=== PATIENT | female | born 1995 | race Caucasian/White ===

== ENCOUNTER 2022-07-18 20:13 | Emergency (ER) | payer OTHER, SELFPAY ==
[2022-07-18 20:20] VITALS: BP 112/78; PULSE 84; RESP 16; RESP 18; TEMP 36.7; O2SAT 98; O2SAT 99; BMI 18.9
--- NOTE | 2022-07-18 20:42 | CRLHL7_ITS ---
For Patients: As a result of the Cures Act, medical imaging exams and procedure reports are released immediately into your electronic medical record. You may view this report before your referring provider. If you have questions, please contact your health care provider. INDICATION: Sinus fullness, sinus pressure and pain TECHNIQUE: CT Sinus without i.v. contrast. Coronal and sagittal reformats were obtained. COMPARISON: None FINDINGS: Sinus: A small retention cyst or polyp is present within the right sphenoid sinus. The sinuses are well-aerated with no significant mucosal thickening or retained secretions seen. The ostiomeatal units are patent. The nasal turbinates are normal. Mild rightward deviation of the nasal septum with a septal spur noted. Orbit: The visualized orbits are grossly unremarkable. Skull base: The visualized brain parenchyma is otherwise normal in appearance. The mastoid air cells are clear. Soft tissue: Unremarkable. IMPRESSION: 1. Unremarkable CT appearance of the paranasal sinuses. Dictated by Lloyd Pérez MD @ 07/18/2022 9:56:25 PM Please note that all CT scans at this facility use dose modulation, iterative reconstruction, and/or weight-based dosing when appropriate to reduce radiation dose to as low as reasonably achievable. Dictated by: Lloyd Pérez MD @ 07/18/2022 21:56:28 (Electronically Signed)
--- NOTE | 2022-07-18 20:43 | ED.GENADULT ---
HPI - General Adult General Chief complaint: Unspecified Complaint, Adult Stated complaint: Eyes are red and puffy, shortness of breath Time Seen by Provider: 07/18/22 20:15 History of Present Illness HPI narrative: This 27-year-old female comes in reporting facial pain, red eyes, and puffy eyes over the past couple days. She does not report any fevers or cough. She states that she has a history of sinusitis. She also reports shortness of breath but does arrive with normal vital signs and is able to speak in complete sentences. Related Data Home Medications Medication Instructions Recorded Confirmed albuterol 90 mcg/actuation aerosol 90 mcg inhalation DAILY 05/24/22 07/18/22 inhaler albuterol sulfate 2.5 mg/3 mL 2.5 mg inhalation Q6H PRN 05/24/22 07/18/22 (0.083 %) solution for nebulization citalopram 10 mg tablet 10 mg PO QDAY 05/24/22 07/18/22 dextroamphetamine-amphetamine 5 mg 5 mg PO QDAY PRN 05/24/22 07/18/22 tablet (Adderall) dextroamphetamine-amphetamine ER 25 mg PO QAM 05/24/22 07/18/22 25 mg 24hr capsule,extend release (Adderall XR) Previous Rx's Medication Instructions Recorded gentamicin 0.3 % eye drops 1 drp ophthalmic (eye) Q4H #5 mL 07/18/22 methylprednisolone 4 mg tablets in See Rx Instructions PO .COMPLEX 07/18/22 a dose pack (Medrol (Spenser)) #21 ea Allergies Allergy/AdvReac Type Severity Reaction Status Date / Time No Known Allergies Allergy Verified 07/18/22 20:23 Review of Systems Status of ROS: Reports: 10 or more systems reviewed and unremarkable except as noted in History and below Narrative: Constitutional: No fevers, no weight gain or loss. Eyes: No vision changes. Erythema with watery discharge. HENT: No congestion, no sore throat, no ear pain. She reports facial pain over the maxillary sinuses. Cardiovascular: No chest pain, no palpitations. Respiratory: No shortness of breath, no wheezes, no cough. Gastrointestinal: No abdominal pain, no vomiting, no diarrhea. Genitourinary: No dysuria, no hematuria. Musculoskeletal: Normal range of motion. Skin: No rashes, no pruritis. Neurological: No dizziness, weakness, sensory change, speech change. Endo/Heme/Allergies: No bruising or bleeding. No polydipsia. Pysch: no suicidality, no anxiety, no insomnia. All other systems reviewed and are negative. [facility] Medical History (Updated 07/18/22 @ 21:32 by Darryl Cee MD) ADHD (attention deficit hyperactivity disorder) ?F90.9 - Attention-deficit hyperactivity disorder, unspecified type (ICD-10) Surgical History Status post repeat low transverse section ?Z98.891 - History of uterine scar from previous surgery (ICD-10) Status post primary low transverse section ?Z98.891 - History of uterine scar from previous surgery (ICD-10) Social History Smoking Status: Never smoker Second hand tobacco smoke exposure: No How often do you have a drink containing alcohol: never How often do you have six or more drinks on one occasion: Never AUDIT-C Alcohol total score: 0 Non-prescribed substance use: denies use Exam Narrative: Exam Narrative: Constitutional: Well-developed, well-nourished, no acute distress. HEENT: Normocephalic, atraumatic. Oropharynx appears normal. Eyes bilaterally are injected with some mild edema of the eyelids. Neck: Normal range of motion. Nontender. Supple. Heart: Regular. No murmurs. Normal rate. Intact distal pulses. Lungs: Clear to auscultation. No chest discomfort. No wheezes, rhonchi, or rales. Abdomen: Normal bowel sounds. Nontender. No rebound tenderness. Genitalia: Deferred. Back: No midline tenderness. Normal range of motion. Extremities: Normal range of motion. No injury. Skin: Intact. No rash. Warm. No erythema or pallor. Neurologic: No altered sensation. No weakness. Alert and oriented. Psychiatric: No suicidality. No anxiety or depression. No insomnia. Nursing notes and vitals signs are reviewed. Const: Vital Signs, click to edit/add: Vital Signs - 24 hr 07/18/22 20:20 07/18/22 20:20 Temperature 98.0 F Pulse Rate [Right Pulse Oximeter] 84 Respiratory Rate 18 Respiratory Rate [ Face] 16 Blood Pressure [Ri ght Upper Arm] 112/78 Pulse Oximetry 99 Oxygen Delivery Me thod Room Air Course Vital Signs Vital signs: Initial Vital Signs Temperature 98.0 F 07/18/22 20:20 Temperature Source Temporal Artery Scan 07/18/22 20:20 Pulse Rate 84 07/18/22 20:20 Respiratory Rate 18 07/18/22 20:20 Blood Pressure 112/78 07/18/22 20:20 Blood Pressure Mean 89 07/18/22 20:20 Blood Pressure Position Sitting 07/18/22 20:20 Pulse Oximetry 99 07/18/22 20:20 Oxygen Delivery Method Room Air 07/18/22 20:20 Vital Signs Temperature 98.0 F 07/18/22 20:20 Pulse Rate 84 07/18/22 20:20 Respiratory Rate 18 07/18/22 20:20 Blood Pressure 112/78 07/18/22 20:20 Pulse Oximetry 99 07/18/22 20:20 Oxygen Delivery Method Room Air 07/18/22 20:20 Temperature 98.0 F 07/18/22 20:20 Pulse Rate 84 07/18/22 20:20 Respiratory Rate 16 07/18/22 20:20 Blood Pressure 112/78 07/18/22 20:20 Pulse Oximetry 99 07/18/22 20:20 Oxygen Delivery Method Room Air 07/18/22 20:20 Medical Decision Making MDM Narrative Medical decision making narrative: This patient is indicating symptoms of sinusitis. CT imaging of the sinuses is obtained and shows no obvious sign of bacterial infection. More likely this is a allergic sinusitis. Radiology report is pending. An antibiotic is not indicated at this time. The patient did receive a prescription for Medrol Dosepak as well as gentamicin ophthalmic solution and Toradol. Discharge Plan Discharge Clinical Impression: Allergic sinusitis, Conjunctivitis Patient Disposition: Home, Self-Care Condition: Stable Additional Instructions: Take medication as needed and indicated. Follow up with MD or return if worsening. Prescriptions: New methylprednisolone [Medrol (Spenser)] 4 mg tablets,dose pack See Rx Instructions .ROUTE .COMPLEX Qty: 21 0RF Rx Instructions: orally per package directions gentamicin 0.3 % drops 1 drp ophthalmic (eye) Q4H Qty: 5 0RF No Action dextroamphetamine-amphetamine [Adderall XR] 25 mg capsule,extended release 24hr 25 mg PO QAM dextroamphetamine-amphetamine [Adderall] 5 mg tablet 5 mg PO QDAY PRN citalopram 10 mg tablet 10 mg PO QDAY albuterol sulfate 2.5 mg /3 mL (0.083 %) solution for nebulization 2.5 mg inhalation Q6H PRN albuterol 90 mcg/actuation aerosol 90 mcg inhalation DAILY Follow Up/Referrals: Mame Barroso MD [Primary Care Provider] - Stand Alone Forms: [employer] Info Instructions
[2022-07-18 21:30] VITALS: BP 118/80; PULSE 79; RESP 18; TEMP 36.7; O2SAT 99
== END 2022-07-18 21:39 | disposition home or self-care (01) ==
PROVIDERS: Emergency Provider Emergency Medicine Emergency Medical Services; PCP Family Medicine
DX: J30.9 Allergic rhinitis, unspecified (principal); H10.9 Unspecified conjunctivitis
CPT/HCPCS: 70486; 99284

== ENCOUNTER 2022-10-25 12:09 | Emergency (ER) | payer OTHER, SELFPAY ==
[2022-10-25 12:18] VITALS: BP 130/77; PULSE 69; RESP 18; TEMP 36.6; O2SAT 100; BMI 19.5
--- NOTE | 2022-10-25 12:22 | CRLHL7_ITS ---
For Patients: As a result of the Cures Act, medical imaging exams and procedure reports are released immediately into your electronic medical record. You may view this report before your referring provider. If you have questions, please contact your health care provider. Indication: Shortness of breath, chest tightness, cough Technique: Two views of the chest Comparison: Chest radiograph on January 01, 2018 and prior Findings: Lungs are clear. No pleural effusion or pneumothorax. Normal heart size. Normal mediastinal contour. No acute fracture. Visualized upper abdomen is unremarkable. Impression: No acute cardiopulmonary process. Dictated by Carla Olmedo MD @ 10/25/2022 12:59:56 PM (Electronically Signed)
--- NOTE | 2022-10-25 13:08 | ED_ITS ---
HPI - General Adult General Chief complaint: Cough Stated complaint: chest tightness,L side pain and coughing Time Seen by Provider: 10/25/22 12:11 History of Present Illness HPI narrative: This 27-year-old female comes in reporting cough that is productive over the past 4 days. She does not report any fevers, sore throat, ear pain, or shortness of breath. Related Data Home Medications Medication Instructions Recorded Confirmed albuterol 90 mcg/actuation aerosol 90 mcg inhalation DAILY 05/24/22 07/24/22 inhaler albuterol sulfate 2.5 mg/3 mL 2.5 mg inhalation Q6H PRN 05/24/22 07/24/22 (0.083 %) solution for nebulization citalopram 10 mg tablet 10 mg PO QDAY 05/24/22 07/24/22 dextroamphetamine-amphetamine 5 mg 5 mg PO QDAY PRN 05/24/22 07/24/22 tablet (Adderall) dextroamphetamine-amphetamine ER 25 mg PO QAM 05/24/22 07/24/22 25 mg 24hr capsule,extend release (Adderall XR) Previous Rx's Medication Instructions Recorded gentamicin 0.3 % eye drops 1 drp ophthalmic (eye) Q4H #5 mL 07/18/22 methylprednisolone 4 mg tablets in See Rx Instructions PO .COMPLEX 07/18/22 a dose pack (Medrol (Spenser)) #21 ea carvedilol 3.125 mg tablet (Coreg) 3.125 mg PO BID PRN Tachycardia 07/24/22 #30 tabs ketorolac 0.5 % eye drops (Acular) 1 drp ophthalmic (eye) QID #10 mL 07/24/22 acetaminophen 300 mg-codeine 30 mg 1 tab PO Q6H PRN pain #15 tabs 10/25/22 tablet methylprednisolone 4 mg tablets in See Rx Instructions PO .COMPLEX 10/25/22 a dose pack (Medrol (Spenser)) #21 ea Allergies Allergy/AdvReac Type Severity Reaction Status Date / Time No Known Allergies Allergy Verified 10/25/22 12:20 Review of Systems Status of ROS: Reports: 10 or more systems reviewed and unremarkable except as noted in History and below Narrative: Constitutional: No fevers, no weight gain or loss. Eyes: No discharge. No vision changes. HENT: No congestion, no sore throat, no ear pain. Cardiovascular: No chest pain, no palpitations. Respiratory: No shortness of breath, no wheezes. Productive cough. Gastrointestinal: No abdominal pain, no vomiting, no diarrhea. Genitourinary: No dysuria, no hematuria. Musculoskeletal: Normal range of motion. Skin: No rashes, no pruritis. Neurological: No dizziness, weakness, sensory change, speech change. Endo/Heme/Allergies: No bruising or bleeding. No polydipsia. Pysch: no suicidality, no anxiety, no insomnia. All other systems reviewed and are negative. [facility] Medical History (Updated 10/25/22 @ 14:15 by Darryl Cee MD) ADHD (attention deficit hyperactivity disorder) ?F90.9 - Attention-deficit hyperactivity disorder, unspecified type (ICD-10) Surgical History (System 07/24/22 @ 17:43 by Renetta Galarza) Status post repeat low transverse section ?Z98.891 - History of uterine scar from previous surgery (ICD-10) Status post primary low transverse section ?Z98.891 - History of uterine scar from previous surgery (ICD-10) Social History (System 07/24/22 @ 17:43 by Renetta Galarza) Smoking Status: Never smoker Do you use any of these nicotine containing products: None Second hand tobacco smoke exposure: No How often do you have a drink containing alcohol: never How often do you have six or more drinks on one occasion: Never AUDIT-C Alcohol total score: 0 Non-prescribed substance use: denies use service: No Exam Narrative: Exam Narrative: Constitutional: Well-developed, well-nourished, no acute distress. HEENT: Normocephalic, atraumatic. Neck: Normal range of motion. Nontender. Supple. Heart: Regular. No murmurs. Normal rate. Intact distal pulses. Lungs: Clear to auscultation. No chest discomfort. No wheezes, rhonchi, or rale s. Abdomen: Normal bowel sounds. Nontender. No rebound tenderness. Genitalia: Deferred. Back: No midline tenderness. Normal range of motion. Extremities: Normal range of motion. No injury. Skin: Intact. No rash. Warm. No erythema or pallor. Neurologic: No altered sensation. No weakness. Alert and oriented. Psychiatric: No suicidality. No anxiety or depression. No insomnia. Nursing notes and vitals signs are reviewed. Const: Vital Signs, click to edit/add: Vital Signs - 24 hr 10/25/22 12:18 Temperature 97.9 F Pulse Rate [Right Pulse Oximeter] 69 Respiratory Rate 18 Blood Pressure [Ri ght Upper Arm] 130/77 Pulse Oximetry 100 Oxygen Delivery Me thod Room Air Course Vital Signs Vital signs: Initial Vital Signs Temperature 97.9 F 10/25/22 12:18 Temperature Source Temporal Artery Scan 10/25/22 12:18 Pulse Rate 69 10/25/22 12:18 Pulse Rhythm Regular 10/25/22 12:18 Pulse Strength 3+ Normal 10/25/22 12:18 Respiratory Rate 18 10/25/22 12:18 Blood Pressure 130/77 10/25/22 12:18 Blood Pressure Mean 94 10/25/22 12:18 Pulse Oximetry 100 10/25/22 12:18 Oxygen Delivery Method Room Air 10/25/22 12:18 Vital Signs Temperature 97.9 F 10/25/22 12:18 Pulse Rate 69 10/25/22 12:18 Respiratory Rate 18 10/25/22 12:18 Blood Pressure 130/77 10/25/22 12:18 Pulse Oximetry 100 10/25/22 12:18 Oxygen Delivery Method Room Air 10/25/22 12:18 Temperature 97.9 F 10/25/22 12:18 Pulse Rate 69 10/25/22 12:18 Respiratory Rate 18 10/25/22 12:18 Blood Pressure 130/77 10/25/22 12:18 Pulse Oximetry 100 10/25/22 12:18 Oxygen Delivery Method Room Air 10/25/22 12:18 Medical Decision Making MDM Narrative Medical decision making narrative: This patient comes in with 4 days of productive cough. She also has some nasal congestion and chest congestion. Chest x-ray and nasal swab returned negative for pneumonia or other viral causes for her symptoms. Most likely this is some other viral upper respiratory infection. The patient is okay to return home and did received prescriptions for Tylenol 3 and Medrol Dosepak. I encouraged using [id number] medicines also as needed and directed. Lab Data Labs: Lab Results 10/25/22 Range/Units 13:20 SARS-CoV-2 (PCR) Negative SARS-CoV-2 (Negative) Influenza Type A (PCR) Negative PCR FLU A (Negative) Influenza Type B (PCR) Negative PCR FLU B (Negative) RSV (PCR) Negative PCR RSV (Negative) Imaging Data Chest x-ray: Radiologist's impression: No acute cardiopulmonary process. Discharge Plan Discharge Clinical Impression: Acute upper respiratory infection Patient Disposition: Home, Self-Care Condition: Unchanged Additional Instructions: Take medication as needed and directed. Follow up with MD or return if worsening symptoms occur. Prescriptions: New acetaminophen-codeine 300-30 mg tablet 1 tab PO Q6H PRN (Reason: pain) Qty: 15 0RF methylprednisolone [Medrol (Spenser)] 4 mg tablets,dose pack See Rx Instructions .ROUTE .COMPLEX Qty: 21 0RF Rx Instructions: orally per package directions No Action dextroamphetamine-amphetamine [Adderall XR] 25 mg capsule,extended release 24hr 25 mg PO QAM dextroamphetamine-amphetamine [Adderall] 5 mg tablet 5 mg PO QDAY PRN citalopram 10 mg tablet 10 mg PO QDAY albuterol sulfate 2.5 mg /3 mL (0.083 %) solution for nebulization 2.5 mg inhalation Q6H PRN albuterol 90 mcg/actuation aerosol 90 mcg inhalation DAILY carvedilol [Coreg] 3.125 mg tablet 3.125 mg PO BID PRN (Reason: Tachycardia) Qty: 30 2RF Rx Instructions: must administer with a meal/food ketorolac [Acular] 0.5 % drops 1 drp ophthalmic (eye) QID Qty: 10 0RF methylprednisolone [Medrol (Spenser)] 4 mg tablets,dose pack See Rx Instructions .ROUTE .COMPLEX Qty: 21 0RF Rx Instructions: orally per package directions gentamicin 0.3 % drops 1 drp ophthalmic (eye) Q4H Qty: 5 0RF Follow Up/Referrals: Mame Barroso MD [Primary Care Provider] - Stand Alone Forms: [employer] Info Instructions
[2022-10-25 14:06] LABS: PCR FLU A Negative PCR FLU A (Negative); PCR FLU B Negative PCR FLU B (Negative); PCR RSV Negative PCR RSV (Negative)
[2022-10-25 14:08] LABS: SARS PCR* Negative SARS-CoV-2 (Negative)
== END 2022-10-25 14:26 | disposition home or self-care (01) ==
PROVIDERS: Emergency Provider Emergency Medicine Emergency Medical Services; PCP Family Medicine
DX: J06.9 Acute upper respiratory infection, unspecified (principal)
CPT/HCPCS: 71046; 87631; 99283; 99284

== ENCOUNTER 2023-01-09 21:35 | Emergency (ER) | payer OTHER, SELFPAY ==
[2023-01-09 21:42] VITALS: BP 121/78; PULSE 70; RESP 16; TEMP 36.8; O2SAT 98
--- NOTE | 2023-01-09 21:47 | ED.GENADULT ---
HPI - General Adult General Chief complaint: Vaginal Bleeding Stated complaint: Active miscarriage - heavy bleeding Time Seen by Provider: 01/09/23 21:47 History of Present Illness HPI narrative: heavy bleeding started this evening-8pm, US yesterday @ [facility], saw fetus with no heartbeat. Was told to come to ER if heavy bleeding. 6 weeks . pt reports cramping, 07/22 27-year-old woman presenting to the emergency department with concern of heavy vaginal bleeding. This began about an hour and a half ago. Thought to be 6 weeks . Had an ultrasound yesterday in clinic which apparently visualized demise. She is G 3p2 and only complications of labor and delivery noted were preeclampsia with both prior pregnancies. Had been having some pink discharge whole spotting earlier in the week prompting this visit to the clinic for ultrasound. Bleeding again an hour and half ago was noted when she went to use the bathroom. Later describing some bloody clot/tissue on paper. She would describe it as menstrual level bleeding at this point. She is not feeling lightheaded. Says her legs feel little bit like Jell-O though. She is not short of breath. Related Data Home Medications Medication Instructions Recorded Confirmed albuterol 90 mcg/actuation aerosol 90 mcg inhalation DAILY 05/24/22 07/24/22 inhaler albuterol sulfate 2.5 mg/3 mL 2.5 mg inhalation Q6H PRN 05/24/22 07/24/22 (0.083 %) solution for nebulization citalopram 10 mg tablet 10 mg PO QDAY 05/24/22 07/24/22 dextroamphetamine-amphetamine 5 mg 5 mg PO QDAY PRN 05/24/22 07/24/22 tablet (Adderall) dextroamphetamine-amphetamine ER 25 mg PO QAM 05/24/22 07/24/22 25 mg 24hr capsule,extend release (Adderall XR) Previous Rx's Medication Instructions Recorded gentamicin 0.3 % eye drops 1 drp ophthalmic (eye) Q4H #5 mL 07/18/22 methylprednisolone 4 mg tablets in See Rx Instructions PO .COMPLEX 07/18/22 a dose pack (Medrol (Spenser)) #21 ea carvedilol 3.125 mg tablet (Coreg) 3.125 mg PO BID PRN Tachycardia 05/12/23 #30 tabs ketorolac 0.5 % eye drops (Acular) 1 drp ophthalmic (eye) QID #10 mL 07/24/22 acetaminophen 300 mg-codeine 30 mg 1 tab PO Q6H PRN pain #15 tabs 10/25/22 tablet methylprednisolone 4 mg tablets in See Rx Instructions PO .COMPLEX 10/25/22 a dose pack (Medrol (Spenser)) #21 ea Allergies Allergy/AdvReac Type Severity Reaction Status Date / Time No Known Allergies Allergy Verified 10/25/22 12:20 Review of Systems Status of ROS: Reports: 6 or more systems reviewed and unremarkable except as noted in History and below [facility] Medical History ADHD (attention deficit hyperactivity disorder) ?F90.9 - Attention-deficit hyperactivity disorder, unspecified type (ICD-10) Surgical History Status post repeat low transverse section ?Z98.891 - History of uterine scar from previous surgery (ICD-10) Status post primary low transverse section ?Z98.891 - History of uterine scar from previous surgery (ICD-10) Social History Smoking Status: Never smoker Do you use any of these nicotine containing products: None Second hand tobacco smoke exposure: No How often do you have a drink containing alcohol: never How often do you have six or more drinks on one occasion: Never AUDIT-C Alcohol total score: 0 Non-prescribed substance use: denies use service: No Exam Narrative: Exam Narrative: Pleasant. NAD maybe a little anxious. Tattoo at the right shoulder. Breathing easily. Lungs appear to be clear. Heart in regular rate and rhythm. Abdomen is soft a little uncomfortable to palpation in the suprapubic area. Skin is otherwise warm and dry well-perfused. No lower extremity. exam was not done Const: Vital Signs, click to edit/add: Vital Signs - 24 hr 01/09/23 21:42 Temperature 98.3 F Pulse Rate [Left P ulse Oximeter] 70 Respiratory Rate 16 Blood Pressure [Ri ght Upper Arm] 121/78 Pulse Oximetry 98 Oxygen Delivery Me thod Room Air Documenting provider has reviewed patient's vital signs: yes Course Vital Signs Vital signs: Initial Vital Signs Temperature 98.3 F 01/09/23 21:42 Temperature Source Temporal Artery Scan 01/09/23 21:42 Pulse Rate 70 01/09/23 21:42 Pulse Rhythm Regular 01/09/23 21:42 Respiratory Rate 16 01/09/23 21:42 Blood Pressure 121/78 01/09/23 21:42 Blood Pressure Mean 92 01/09/23 21:42 Blood Pressure Position Sitting 01/09/23 21:42 Pulse Oximetry 98 01/09/23 21:42 Oxygen Delivery Method Room Air 01/09/23 21:42 Vital Signs Temperature 98.3 F 01/09/23 21:42 Pulse Rate 70 01/09/23 21:42 Respiratory Rate 16 01/09/23 21:42 Blood Pressure 121/78 01/09/23 21:42 Pulse Oximetry 98 01/09/23 21:42 Oxygen Delivery Method Room Air 01/09/23 21:42 Temperature 98.3 F 01/09/23 21:42 Pulse Rate 70 01/09/23 21:42 Respiratory Rate 16 01/09/23 21:42 Blood Pressure 121/78 01/09/23 21:42 Pulse Oximetry 98 01/09/23 21:42 Oxygen Delivery Method Room Air 01/09/23 21:42 Medical Decision Making MDM Narrative Medical decision making narrative: She would just like to know whether otherwise okay. Will check hemoglobin for baseline. I doubt that is significantly anemic at this time. Will check blood type also for consideration of RhoGAM. Is feeling little bit nauseated give her Zofran. Serum hCG quantitative. At this time I am not sure we need to repeat the ultrasound today. Discussing further I think it would be a good idea yet to double check with an ultrasound. Discussed findings with general teller. IMPRESSION: 1. Single viable intrauterine with crown-rump length of 0.2 cm corresponding to a gestational age of 5 weeks, 5 days. heart rate of 100 beats per minute is slightly bradycardic, close clinical follow-up is recommended. 2. Small subchorionic hemorrhage in the left uterine body measuring 1.9 x 1.2 x 1.1 cm. We may have explanation here now for this bleeding. Recommending close follow-up. Bleeding scant. Blood type positive so no RhoGAM See patient discharge plan Lab Data Lab results reviewed: Yes I reviewed the patient's lab results Labs: Lab Results 01/09/23 01/09/23 Range/Units 22:07 22:11 Hgb 13.5 (12.0-16.0) gm/dL HCG, Quant 40757.00 mIU/mL Blood Type B Positive Antibody Screen NEGATIVE Discharge Plan Discharge Clinical Impression: Subchorionic hemorrhage, Bleeding in early Patient Disposition: Home, Self-Care Condition: Stable Additional Instructions: I will call you if Radiology finds anything more significant. Your beta hCG quantitative was 31,000 today. Hemoglobin was 13.5. You are blood type B positive. Consider follow-up around the middle of next week to recheck this beta hCG. Return for marked increase in persistent abdominal pain, bleeding such that you are soaking 1 heavy pad an hour for 2 consecutive hours, increasingly short of breath or lightheaded. Prescriptions: No Action dextroamphetamine-amphetamine [Adderall XR] 25 mg capsule,extended release 24hr 25 mg PO QAM dextroamphetamine-amphetamine [Adderall] 5 mg tablet 5 mg PO QDAY PRN citalopram 10 mg tablet 10 mg PO QDAY albuterol sulfate 2.5 mg /3 mL (0.083 %) solution for nebulization 2.5 mg inhalation Q6H PRN albuterol 90 mcg/actuation aerosol 90 mcg inhalation DAILY carvedilol [Coreg] 3.125 mg tablet 3.125 mg PO BID PRN (Reason: Tachycardia) Qty: 30 2RF Rx Instructions: must administer with a meal/food ketorolac [Acular] 0.5 % drops 1 drp ophthalmic (eye) QID Qty: 10 0RF acetaminophen-codeine 300-30 mg tablet 1 tab PO Q6H PRN (Reason: pain) Qty: 15 0RF methylprednisolone [Medrol (Spenser)] 4 mg tablets,dose pack See Rx Instructions .ROUTE .COMPLEX Qty: 21 0RF Rx Instructions: orally per package directions methylprednisolone [Medrol (Spenser)] 4 mg tablets,dose pack See Rx Instructions .ROUTE .COMPLEX Qty: 21 0RF Rx Instructions: orally per package directions gentamicin 0.3 % drops 1 drp ophthalmic (eye) Q4H Qty: 5 0RF Follow Up/Referrals: Mame Barroso MD [Primary Care Provider] - Stand Alone Forms: [facility] Info Instructions
[2023-01-09 22:16] LABS: Hemoglobin* 13.5 gm/dL (12.0-16.0)
--- NOTE | 2023-01-10 | CRLHL7_ITS ---
For Patients: As a result of the Century Cures Act, medical imaging exams and procedure reports are released immediately into your electronic medical record. You may view this report before your referring provider. If you have questions, please contact your health care provider. INDICATION: Bleeding in 1st trimester. TECHNIQUE: Ultrasound OB pelvis transabdominal and transvaginal. Real-time peterson-scale imaging of the pelvis was performed. COMPARISON: None FINDINGS: Sonographic imaging demonstrates a single living intrauterine gestation. The embryo demonstrates a regular cardiac rate measuring 100 beats per minute. The embryo`s crown rump length measurement of 0.2 cm corresponds to a gestational age of 5 weeks, 5 days with a sonographic due date of 09/07/2023. There is a normal appearing yolk sac. There are no gross abnormalities noted within the embryo at this early state of development. The placenta has not yet developed. Small subchorionic hemorrhage in the left uterine body measuring 1.9 x 1.2 x 1.1 cm. Unremarkable appearance of the bilateral ovaries. IMPRESSION: 1. Single viable intrauterine with crown-rump length of 0.2 cm corresponding to a gestational age of 5 weeks, 5 days. heart rate of 100 beats per minute is slightly bradycardic, close clinical follow-up is recommended. 2. Small subchorionic hemorrhage in the left uterine body measuring 1.9 x 1.2 x 1.1 cm. Dictated by Alex Martinez MD @ 01/10/2023 1:02:10 AM (Electronically Signed)
== END 2023-01-10 01:02 | disposition home or self-care (01) ==
PROVIDERS: Emergency Provider Family Medicine; PCP Family Medicine
DX: O46.91 Antepartum hemorrhage, unspecified, first trimester (principal); Z3A.01 Less than 8 weeks gestation of pregnancy
CPT/HCPCS: 36415; 76817; 84702; 85018; 86850; 86900; 86901; 99283; 99284

== ENCOUNTER 2024-01-12 13:14 | Emergency (ER) | payer OTHER, SELFPAY ==
[2024-01-12 13:24] VITALS: BP 133/79; PULSE 105; RESP 16; TEMP 36.9; O2SAT 100; BMI 18.9
--- NOTE | 2024-01-12 13:43 | CRLHL7_ITS ---
For Patients: As a result of the Century Cures Act, medical imaging exams and procedure reports are released immediately into your electronic medical record. You may view this report before your referring provider. If you have questions, please contact your health care provider. INDICATION: Lip abrasion TECHNIQUE: CT maxillofacial without contrast. COMPARISON: None. FINDINGS: FACIAL BONES: No fracture, bony sclerosis or destruction. Fractures, if present, would best be characterized by the following pattern or classification: None. HARDWARE: No hardware loosening or disruption. ORBITS: Bony orbit is normal. Intra-orbital contents are normal. FACIAL TISSUES: Mild soft tissue swelling of the lips. Subcutaneous air is not seen. SINUSES: Mucous retention cyst in the right sphenoid sinus and left maxillary sinus. Mild right maxillary sinus mucosal thickening. SKULL BASE: Skull base is normal. INTRA-CRANIAL: See separately dictated CT head IMPRESSION: Mild soft tissue swelling of the lips without evidence of underlying facial fracture. Please note that all CT scans at this facility use dose modulation, iterative reconstruction, and/or weight-based dosing when appropriate to reduce radiation dose to as low as reasonably achievable. Dictated by Codie Lorenzo MD @ 01/12/2024 2:35:30 PM (Electronically Signed)
--- NOTE | 2024-01-12 13:43 | CRLHL7_ITS ---
For Patients: As a result of the Century Cures Act, medical imaging exams and procedure reports are released immediately into your electronic medical record. You may view this report before your referring provider. If you have questions, please contact your health care provider. INDICATION: Fall COMPARISON: None. TECHNIQUE: CT of the cervical spine without contrast. FINDINGS: Alignment: Straightening of the cervical lordosis. Vertebra: No evident acute displaced fracture or traumatic malalignment. Cervical vertebral body height is grossly preserved. No high-grade osseous spinal canal or neural foraminal stenosis. Paraspinal muscles: Unremarkable noncontrast CT appearance. IMPRESSION: No evident acute displaced fracture. Please note that all CT scans at this facility use dose modulation, iterative reconstruction, and/or weight-based dosing when appropriate to reduce radiation dose to as low as reasonably achievable. Dictated by Juventino Longoria MD @ 01/12/2024 2:34:55 PM (Electronically Signed)
--- NOTE | 2024-01-12 13:43 | CRLHL7_ITS ---
For Patients: As a result of the Century Cures Act, medical imaging exams and procedure reports are released immediately into your electronic medical record. You may view this report before your referring provider. If you have questions, please contact your health care provider. INDICATION: Fall TECHNIQUE: CT head without contrast. COMPARISON: None. FINDINGS: symmetric. The ventricles, sulci and cisterns are normal. BRAIN: The brain parenchyma is normal. No acute transcortical infarct or hemorrhage is seen. EXTRA-AXIAL: Extra-axial spaces are normal. EXTRA-CRANIAL: Skull and facial bones are normal. Right sphenoid sinus mucous retention cyst. Mastoids are clear. Orbits are normal. IMPRESSION: No acute intracranial abnormality. Please note that all CT scans at this facility use dose modulation, iterative reconstruction, and/or weight-based dosing when appropriate to reduce radiation dose to as low as reasonably achievable. Dictated by Codie Lorenzo MD @ 01/12/2024 2:31:09 PM (Electronically Signed)
--- NOTE | 2024-01-12 13:44 | ED_ITS ---
HPI - Fall General Chief Complaint: Fall/Minor Trauma Stated Complaint: Fall Wednesday-hit head, not sure abt LOC Time Seen by Provider: 01/12/24 13:17 History of Present Illness HPI Narrative: This 28-year-old female comes in after contacting a triage nurse who recommended she come here. She reports headache for after a fall that occurred 3 days ago. She is not sure if she remembers all what happened. She was in a bathroom and did fall forward and hit her nose and her lower lip. She had a wound on the inside of her lower lip and on the outside. She did not seek medical care until now. Her lip wound is healing properly. She has had some occasional bleeding from her nose since then. She does not have any facial swelling. She does report a headache but does not have any neurologic deficits. Related Data Home Medications ?Medication ?Instructions ?Recorded ?Confirmed albuterol 90 mcg/actuation aerosol 90 mcg inhalation DAILY 05/24/22 07/24/22 inhaler albuterol sulfate 2.5 mg/3 mL 2.5 mg inhalation Q6H PRN 05/24/22 07/24/22 (0.083 %) solution for nebulization citalopram 10 mg tablet 10 mg PO QDAY 05/24/22 07/24/22 dextroamphetamine-amphetamine 5 mg 5 mg PO QDAY PRN 05/24/22 07/24/22 tablet (Adderall) dextroamphetamine-amphetamine ER 25 mg PO QAM 05/24/22 07/24/22 25 mg 24hr capsule,extend release (Adderall XR) levonorgestrel 0.15 mg-ethinyl 1 tab PO DAILY 01/12/24 01/12/24 estradiol 0.03 mg tablet (Kurvelo (28)) Previous Rx's ?Medication ?Instructions ?Recorded carvedilol 3.125 mg tablet (Coreg) 3.125 mg PO BID PRN Tachycardia 07/24/22 #30 tabs acetaminophen 300 mg-codeine 30 mg 1 tab PO Q6H PRN pain #15 tabs 10/25/22 tablet ketorolac 10 mg tablet 10 mg PO Q8H 5 days #15 tabs 01/12/24 Allergies Allergy/AdvReac Type Severity Reaction Status Date / Time No Known Allergies Allergy Verified 10/25/22 12:20 Review of Systems Status of ROS: Reports: 10 or more systems reviewed and unremarkable except as noted in History and below Narrative: Constitutional: No fevers, no weight gain or loss. Eyes: No discharge. No vision changes. HENT: No congestion, no sore throat, no ear pain. Cardiovascular: No chest pain, no palpitations. Respiratory: No shortness of breath, no wheezes, no cough. Gastrointestinal: No abdominal pain, no vomiting, no diarrhea. Genitourinary: No dysuria, no hematuria. Musculoskeletal: Normal range of motion. Skin: No rashes, no pruritis. Neurological: No dizziness, weakness, sensory change, speech change. Endo/Heme/Allergies: No bruising or bleeding. No polydipsia. Pysch: no suicidality, no anxiety, no insomnia. All other systems reviewed and are negative. [facility] Medical History ADHD (attention deficit hyperactivity disorder) ?F90.9 - Attention-deficit hyperactivity disorder, unspecified type (ICD-10) Surgical History Status post repeat low transverse section ?Z98.891 - History of uterine scar from previous surgery (ICD-10) Status post primary low transverse section ?Z98.891 - History of uterine scar from previous surgery (ICD-10) Social History Smoking Status: Never smoker Do you use any of these nicotine containing products: None Second hand tobacco smoke exposure: No How often do you have a drink containing alcohol: 2-4 times a month How often do you have six or more drinks on one occasion: Never AUDIT-C Alcohol total score: 2 Non-prescribed substance use: denies use service: No Exam Narrative: Exam Narrative: Constitutional: Well-developed, well-nourished, no acute distress. HEENT: Normal healing wound of the lower lip. Nose exam shows normal findings in each nostril. No sign of active bleeding or other deformity. Neck: Normal range of motion. Supple. No midline tenderness. She does report some diffuse neck muscular tenderness. Heart: Regular. No murmurs. Normal rate. Intact distal pulses. Lungs: Clear to auscultation. No chest discomfort. No wheezes, rhonchi, or rales. Abdomen: Normal bowel sounds. Nontender. No rebound tenderness. Genitalia: Deferred. Back: No midline tenderness. Normal range of motion. Extremities: Normal range of motion. No injury. Skin: Intact. No rash. Warm. No erythema or pallor. Neurologic: No altered sensation. No weakness. Alert and oriented. Psychiatric: No suicidality. No anxiety or depression. No insomnia. Nursing notes and vitals signs are reviewed. Const: Vital Signs, click to edit/add: Vital Signs - 24 hr 01/12/24 13:24 Temperature 98.5 F Pulse Rate [Pulse Oximeter] 105 H Respiratory Rate 16 Blood Pressure [Le ft Upper Arm] 133/79 Pulse Oximetry 100 Oxygen Delivery Me thod Room Air Course Vital Signs Vital signs: Initial Vital Signs Temperature 98.5 F 01/12/24 13:24 Temperature Source Temporal Artery Scan 01/12/24 13:24 Pulse Rate 105 H 01/12/24 13:24 Respiratory Rate 16 01/12/24 13:24 Blood Pressure 133/79 01/12/24 13:24 Blood Pressure Mean 97 01/12/24 13:24 Blood Pressure Position Sitting 01/12/24 13:24 Pulse Oximetry 100 01/12/24 13:24 Oxygen Delivery Method Room Air 01/12/24 13:24 Vital Signs Temperature 98.5 F 01/12/24 13:24 Pulse Rate 105 H 01/12/24 13:24 Respiratory Rate 16 01/12/24 13:24 Blood Pressure 133/79 01/12/24 13:24 Pulse Oximetry 100 01/12/24 13:24 Oxygen Delivery Method Room Air 01/12/24 13:24 Temperature 98.5 F 01/12/24 13:24 Pulse Rate 105 H 01/12/24 13:24 Respiratory Rate 16 01/12/24 13:24 Blood Pressure 133/79 01/12/24 13:24 Pulse Oximetry 100 01/12/24 13:24 Oxygen Delivery Method Room Air 01/12/24 13:24 MDM - Fall MDM Narrative Medical decision making narrative: This patient comes in for evaluation of head and neck injuries as described above. These injuries occurred about 3 days ago and she is been doing okay since then except for persistent headache. I did discuss imaging options with the patient and she would like to go ahead with CT imaging. CT of the head, C- spine, and facial bones all returned negative for fracture or bleed. This was reassuring to the patient. I did provide prescription for Toradol. Discharge Plan Discharge Clinical Impression: Concussion with loss of consciousness Additional Instructions: Take medication as needed and indicated. Increase activity as tolerated. Follow up with MD or return if worsening. Prescriptions: New ketorolac 10 mg tablet 10 mg PO Q8H 5 Days Qty: 15 0RF No Action dextroamphetamine-amphetamine [Adderall XR] 25 mg capsule,extended release 24hr 25 mg PO QAM dextroamphetamine-amphetamine [Adderall] 5 mg tablet 5 mg PO QDAY PRN citalopram 10 mg tablet 10 mg PO QDAY albuterol sulfate 2.5 mg /3 mL (0.083 %) solution for nebulization 2.5 mg inhalation Q6H PRN albuterol 90 mcg/actuation aerosol 90 mcg inhalation DAILY carvedilol [Coreg] 3.125 mg tablet 3.125 mg PO BID PRN (Reason: Tachycardia) Qty: 30 2RF Rx Instructions: must administer with a meal/food acetaminophen-codeine 300-30 mg tablet 1 tab PO Q6H PRN (Reason: pain) Qty: 15 0RF levonorgestrel-ethinyl estrad [Samuelvelo (28)] 0.15-0.03 mg tablet 1 tab PO DAILY Follow Up/Referrals: Mame Barroso MD [Primary Care Provider] - Stand Alone Forms: [facility] Info Instructions
== END 2024-01-12 14:53 | disposition home or self-care (01) ==
PROVIDERS: Emergency Provider Emergency Medicine Emergency Medical Services; PCP Family Medicine
DX: S06.0X0A Concussion without loss of consciousness, initial encounter (principal)
CPT/HCPCS: 70450; 70486; 72125; 99284; 99285

== ENCOUNTER 2024-04-19 20:00 | Emergency (ER) | payer OTHER, SELFPAY ==
--- OUTSIDE RECORDS SUMMARY | 2024-04-19 20:02 | XMS_ITS | Continuity of Care Document ---
Author Organization [facility] Address [address] [address] [place] [address] Phone Care Team Providers Care Director Skills Name Role Phone Jorge Solis MD Unavailable Unavailabl e Allergies, Adverse Reactions, Alerts Substance Reaction Status Criticality No Known Allergies Active No Inform ation Medications Medication Instructions Dosage Effective Dates (start - stop) Status Comments cyclobenzaprine 5 mg tablet take 1 tablet by oral route as needed at bedtime as needed - Active fluticasone 250 mcg-salmeterol 50 mcg/dose blistr powdr for inhalation inhale 1-2 puff by INHALATION route as needed - Active ketorolac 10 mg tablet take 1 tablet by oral route every 6 hours as needed for up to 5 days total use 10 MG - Active dextroamphetamine-amphet amine ER 25 mg 24hr capsule,extend release take 1 capsule by oral route every day in the morning upon awakening 25 MG - Active dextroamphetamine sulfate 5 mg tablet take 1-2 tablet by oral route as needed - Active citalopram 20 mg tablet take 1 tablet by oral route every day 20 MG - Active albuterol sulfate HFA 90 mcg/actuation aerosol inhaler inhale 2 puff by inhalation route every 4 hours as needed 2 puff - Active levonorgestrel-ethinyl estradiol 0.1 mg-20 mcg tablet take 1 tablet by oral route every day 1.00 tablet - Active Procedures Procedure Date Offic/outpt E&m Estab Mod-hi 2 25 Routine Serum Collection Offic/outpt E&m Estab Low-mod 4 Colonoscopy Flex; W/bx 1/mx Level Iv-surg Path Gross/micro 24 Office Cons New/estab Mod Routine Serum Collection Advance Directives Directive Yes / No Effective Date File Name No Information Encounters Encounter Description Practice Location Reason(s) For Visit Diagnoses Date Provider Providers Copied on Encounter [facility], [address] [address], [place], [id number], [place] tel:[phone] [facility] No Information 5 Gene Patel. [address] [place] [address], [address], [id number], [place]. tel:[phone] Offic/outpt E&m Estab Mod-hi [address] [facility], [address] [address], [place], [id number], [place] tel:[phone] [facility] GI Symptoms or Concerns (chief complaint) RUQ abdominal painIrregular bowel habits 5 Joel Toro. [address] [place] [address], [id number], [place]. tel:[phone] Referring Provider: Referral Self, USE FOR SELF REFERRALS. Offic/outpt E&m Estab Low-mod [facility], [address] [address], [place], [id number], [place] tel:[phone] [facility] GI Symptoms or Concerns (chief complaint) Irregular bowel habitsIntermitte nt constipationRUQ abdominal painConstipation , unspecified constipation type 4 [place]. [address] [place] [address], [id number], [place]. tel:[phone] Referring Provider: Referral Self, USE FOR SELF REFERRALS. [facility], [address] [address], [place], [id number], [place] tel:[phone] [facility] Diarrhea, unspecifiedHemor rhage of anus and rectumHemorrhoid s, internalOther hemorrhoidsDiarr hea, unspecifiedHemor rhage of anus and rectum Dec- [place]. [address] [place] [address], [place], [place], [id number], . tel:[phone] Referring Provider: Referral Self, USE FOR SELF REFERRALS. Office Cons New/estab Mod [facility], [address] [address], [place], [place], [id number], tel:[phone] [facility] GI Symptoms or Concerns (chief complaint) Diarrhea, unspecified typeRectal bleedingRight upper quadrant pain Sep-3 4 Jasmin Saldaña. [address] [place] [address], [place] [address], [place], [id number], [place]. tel:[phone] Referring Provider: Mame Barroso MD, [address] [place] [address], [id number]. tel:[phone] [facility], [address] [address], [place], [place], [id number], tel:[phone] No Information Nov- No Information Referring Provider: Mame Barroso MD, [address] [place] [address], [id number]. tel:[phone] Family History Family Member Type Diagnosis Age At Onset Mother Problem (finding) Cirrhosis Brother Problem (finding) Celiac disease Brother Problem (finding) Family history of Ulcer ative colitis Mother Problem (finding) Thyroid disorder Brother Problem (finding) Diverticular disease Immunizations Vaccine Date Status Comments Influenza, Madin Erwinna Canin e Kidney, subunit, quadrivalent, injectable, preservative free administered Note: [facility] bi-directional interface ; Source: Other Registry SARS-COV-2 (COVID-19) vaccin e, mRNA, spike protein, LNP, preservative free, 100 mcg/0.5mL dose or 50 mcg/0.25mL dose administered Note: [facility] bi -directional interface ; Source: Other Registry SARS-COV-2 (COVID-19) vaccin e, mRNA, spike protein, LNP, preservative free, 100 mcg/0.5mL dose or 50 mcg/0.25mL dose administered Note: [facility] bi -directional interface ; Source: Other Registry tetanus toxoid, reduced diphtheria toxoid, and acellular pertussis vaccine, adsorbed administered Note: [facility] b i-directional interface ; Source: Other Registry Afluria Qd administered Note: [facility] bi-directional interface ; Source: Other Registry tetanus toxoid, reduced diphtheria toxoid, and acellular pertussis vaccine, adsorbed administered Note: [facility] b i-directional interface ; Source: Other Registry Afluria Qd administered Note: [facility] bi-directional interface ; Source: Other Registry Influenza, split virus, trivalent, injectable, contains preservative administered Note: [facility] bi-direct ional interface ; Source: Other Registry tetanus toxoid, reduced diphtheria toxoid, and acellular pertussis vaccine, adsorbed administered Note: [facility] b i-directional interface ; Source: Other Registry Payers Payer name Insurance type Covered democrat ID Authoriza tion(s) [employer] CI [id number] Social History Type Description Quantity Date Captured Comments Alcohol Use Details Unknown Caffeine Use Details Unknown Tobacco Use Status No Information Smoking Status No Information Sex Female Chief Complaint And Reason For Visit No Information Reason For Referral Reason For Referral No Information Plan Of Treatment Date Type Action Status Referral Ordered: EGD Appointment date/timeframe: 05/11/2024 ordered Referral Ordered: Ultrasound Gallbladder Appointment date/timeframe: 02/01/2024 ordered Referral Ordered: Colonoscopy Appointment date/timeframe: 01/03/2024 ordered Appointment Cierra Collazo BOOKED Appointment Cierra Collazo BOOKED History Of Present Illness Encounter Date Complaint History Of Prese nt Illness GI Symptoms or Concerns Cierra cummings is a 28-year-old female seen today for follow-up of irregular bowel habits and right upper quadrant abdominal pain.Patient was last seen in clinic in January [address] Kat. She has previously undergone serological testing for celiac disease which was negative, negative testing in November [address] of the abdomen and pelvis that was only notable for a moderate stool burden. Also underwent colonoscopy that was unremarkable including intubation of terminal ileum and random colon biopsies.At the time of her last visit it was felt her irregular stools were more likely related constipation and it was recommended she start a fiber supplement. Subsequent abdominal ultrasound on 01/27/2024 was unremarkable without any evidence of cholelithiasis or sludge.\Patient reports she made some dietary changes making sure to eat breakfast in the morning and taking in protein shakes and having a warm beverage in the morning. She reports with this she has noted improved regularity in her bowel movements-she has had less issues with diarrhea and denies issues with hard lumpy stools. She does report straining with some bowel movements and sensation of incomplete emptying. She has been focusing on drinking enough water during the day as well.Despite improvement in her bowel habits she has noted continued right upper quadrant pain. Her PCP subsequently ordered a HIDA scan which showed a normal gallbladder ejection fraction but did note concern of alkaline reflux.She denies any GERD symptoms-fibrosis or regurgitation of acid or dysphagia.She does note her weight is down several pounds from when she saw her primary care provider. GI Symptoms or Concerns This is a 28-year-old female with past medical history of ADHD, anxiety, mild intermittent asthma, preeclampsia who presents for follow-up of irregular bowel habits as well as right upper quadrant pain.Prior to seeing her in clinic she has had celiac serology testing has been negative, negative testing in November, CT abdomen pelvis that was grossly negative except for moderate stool burden, colonoscopy including TI examination with terminal ileum biopsies and random biopsies that were normal who presents for ongoing symptoms.Patient states that she has alternating bowel habits from type I [place] stool chart that occurs 70% of the time and then the other 30% will have type VII. She has about 3 bowel movements a day. Most most bothersome to the patient is this right upper quadrant pain that can wrap around as well to the back. She does not notice it gets worse with certain movements or food consumption. She will note that she has nausea once a week as well.No significant amount of weight loss.From a social standpoint patient denies any recreational drugs, smoking and has 3 alcoholic beverages a week.No family history of colon cancer. GI Symptoms or Concerns This is a 28-year-old woman with history of ADHD, anxiety, mild intermittent asthma, preeclampsia who presents as a referral from Mame Barroso MD regarding chronic diarrhea and bleeding. She reports having on average 2-3 stools per day. They can be liquid or mushy, and she often experiences blood or mucus with wiping. There is no obvious trigger of symptoms. She reports eating a very healthy diet that is high in fruit and vegetable content. She does not have an issue with dairy. She often eats a protein shake in the morning. She does not chew gum. Very rarely her stools will be formed. She also reports right upper quadrant tenderness that is intermittent. It is not postprandial in nature and is rated a 3 out of 10. Her weight is stable. She feels tired in general and there is some low back pain in the paraspinous lumbar region. She denies recent injuries. She reports occasional bruising on her lower extremities. She does not use NSAIDs or smoke. She has had recent amenorrhea with her period coming about 2 weeks late. She denies other systemic symptoms.I reviewed a primary care note from December 01 to discuss amenorrhea and abdominal symptoms. CT scan from December 01 through [facility] in the [facility] does not show active inflammatory disease. There is moderate stool burden through the colon. There are vascular findings to raise question of pelvic congestion syndrome. There are stable subcentimeter hepatic cysts and a andreafski tail liver morphology. Urinalysis that day showed trace ketones, trace occult blood and trace protein. Labs showed white count 4.9, hemoglobin 15.6, platelets 241, creatinine elevated at 1.21, other chemistries, liver tests were normal.Her brother has a history of ulcerative colitis and gluten intolerance, possibly celiac disease. Her mother has a history of thyroid disease. She also has cirrhosis with history of heavy alcohol use in her youth but the patient is unclear as to the exact cause of the liver disease. Functional Status Date Functional Assessmen t No Information Instructions Date Instruction Additional Infor kim -- As we discussed w e will evaluate your gallbladder closely with an ultrasound as it is better at picking up stones and gallbladder abnormalities when compared to a CT-- Otherwise we will focus on normalizing bowel motions as I think this will help with your right upper quadrant abdominal pain-- Would recommend a high-fiber diet Jhony between 20 to 30 g of fiber in a day-- Can do this with diet or with supplementation such as Metamucil/Citrucel-- If using supplementation please start with 1 teaspoon once a day for 7 days then 2 teaspoon once a day for 7 days then 1 tablespoon indefinitely-- Lifestyle things to help stimulate and normalize bowel motions include a substantial breakfast in the morning, exercise in the morning and a hot beverage in the morning-- Please continue focusing on water intake like you have been doing-- We will follow-up in 2 months to see how symptoms are doing Related to Irregular bowel habits High Fiber Diet Related to Const ipation, unspecified constipation type Colon Cancer Prevention Related to Hemorrhoids, internal Hemorrhoids Related to Hemor rhoids, internal High Fiber Diet Related to Hemor rhoids, internal It was nice to meet you! Here is our plan, as discussed:1. We will check a celiac test today given the family history.2. Please confirm with your mother what type of cirrhosis diagnosis she has. Considerations include alcohol, fatty liver, autoimmune disease, or viral hepatitis.3. We will arrange a colonoscopy to evaluate your symptoms further. This will assess for cause of bleeding and also include colon biopsies for microscopic colitis, even if the tissue appears normal.4. Continue a high-fiber diet for now. I would continue to monitor for potential triggers of symptoms. This can include dairy products, fattier foods, sweeteners such as sorbitol in chewing gum, fructose, etc.5. If colonoscopy is unremarkable for cause of loose stools, we could consider potential treatment for irritable bowel syndrome or dietary eliminations.6. Follow-up will be arranged to review the results of the colonoscopy. Related to Diarrhea, unspecified type Assessments Type Assessment Date No Information Patient Care Teams Name Effective Dates (start - stop) Status Members No Information
--- OUTSIDE RECORDS SUMMARY | 2024-04-19 20:02 | XMS_ITS | Clinical Summary ---
Author Organization [facility] Address [place], [place] [address] Care Team Providers Care Slip Box Changer Name Role Phone Mame Barroso MD Primary Care Provider [phone] Allergies No known active allergies Medications acetaminophen (TYLENOL) 325 mg tabletIndications: HSIL (high grade squamous intraepithelial lesion) on Pap smear of cervix Take 1-2 Tablets (325-650 mg) by mouth every 4 hours if needed (mild pain). Max acetaminophen dose: 4000mg in 24 hrs. 100 Tablet 12/06/19 22 Active ibuprofen (ADVIL; MOTRIN) 200 mg tabletIndications: HSIL (high grade squamous intraepithelial lesion) on Pap smear of cervix Take 2-4 Tablets (400-800 mg) by mouth every 6 hours if needed for Pain (mild pain). 100 Tablet 12/06/19 22 Active fluticasone propion-salmeteroL (Advair Diskus) 250-50 mcg/Dose diskus inhalerIndications :Mild intermittent asthma without complication Inhale 1 Puff by mouth two times daily. 180 Each 3 04/28/19 24 Active albuterol HFA (ProAir HFA) 90 mcg/actuation inhalerIndications :Mild intermittent asthma without complication Inhale 1-2 Puffs by mouth every 4 hours if needed for Shortness of Breath 1st choice or Wheezing 1st choice. 2 Each 3 04/28/19 24 Active dextroamphetamine- amphetamine (Adderall XR) 25 mg Extended-Release capsuleIndications :Attention deficit hyperactivity disorder (ADHD), unspecified ADHD type Take 1 Capsule (25 mg) by mouth once daily. 30 Capsule 11/02/19 24 Active levonorgestrel-eth inyl estrad, 0.15-30 mg-mcg, (LEVLEN; NORDETTE-28) 0.15-0.03 mg tabletIndications: Breakthrough bleeding on OCPs Take 1 Tablet by mouth once daily. 90 Tablet 3 12/23/19 24 Active dextroamphetamine- amphetamine (Adderall XR) 25 mg Extended-Release capsuleIndications :Attention deficit hyperactivity disorder (ADHD), unspecified ADHD type Take 1 Capsule (25 mg) by mouth once daily. 30 Capsule 02/26/20 24 Active dextroamphetamine- amphetamine (AdderalL) 5 mg tabletIndications: Attention deficit hyperactivity disorder (ADHD), unspecified ADHD type Take 1-2 Tablets (5-10 mg) by mouth once daily with lunch. 60 Tablet 12/28/19 24 Active cyclobenzaprine (FLEXERIL) 5 mg tabletIndications: Neck pain,Frequent headaches Take 1 Tablet (5 mg) by mouth at bedtime if needed for Muscle Spasm. 30 Tablet 03/20/19 25 Active dextroamphetamine- amphetamine (AdderalL) 10 mg tabletIndications: Attention deficit hyperactivity disorder (ADHD), unspecified ADHD type 10 mg daily in afternoon as needed for long work days. 30 Tablet 03/23/19 25 Active dextroamphetamine- amphetamine (AdderalL) 10 mg tabletIndications: Attention deficit hyperactivity disorder (ADHD), unspecified ADHD type 10 mg daily in afternoon as needed for long work days. 30 Tablet 04/22/19 25 Active dextroamphetamine- amphetamine (AdderalL) 10 mg tabletIndications: Attention deficit hyperactivity disorder (ADHD), unspecified ADHD type 10 mg daily in afternoon as needed for long work days. 30 Tablet 05/23/19 25 Active dextroamphetamine- amphetamine (Adderall XR) 25 mg Extended-Release capsuleIndications :Attention deficit hyperactivity disorder (ADHD), unspecified ADHD type Take 1 Capsule (25 mg) by mouth once daily. 30 Capsule 03/23/19 25 025 Active dextroamphetamine- amphetamine (Adderall XR) 25 mg Extended-Release capsuleIndications :Attention deficit hyperactivity disorder (ADHD), unspecified ADHD type Take 1 Capsule (25 mg) by mouth once daily. 30 Capsule 04/22/19 25 025 Active dextroamphetamine- amphetamine (Adderall XR) 25 mg Extended-Release capsuleIndications :Attention deficit hyperactivity disorder (ADHD), unspecified ADHD type Take 1 Capsule (25 mg) by mouth once daily. 30 Capsule 05/23/19 25 Active citalopram (CELEXA) 20 mg tabletIndications: Fatigue, unspecified type,Anxiety Take 1 Tablet (20 mg) by mouth once daily. 90 Tablet 1 03/23/19 25 Active citalopram (CELEXA) 20 mg tabletIndications: Fatigue, unspecified type,Anxiety Take 1 Tablet (20 mg) by mouth once daily. 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 08/2021 HSIL. 09/2021 [place], JOEL 2-3 11/2021 LEEP, JOEL 1 12/2022 NIL/HPV negative 11/2023 NIL/HPV negative Plan: Pap/HPV testing due 11/2024 Anxiety 05/09/2018 Attention deficit hyperactivity disorder (ADHD) 10/05/2016 Mild intermittent asthma 07/30/2014 Resolved Problems Problem Noted Date Diagnosed Date Resolved Date VT (ventricular tachycardia) 06/17/2021 04/28/2023 Overview (06/17/2021): Had one episode of ventricular tachycardia on Zio patch June 2020. Saw cardiology, patient was not too symptomatic so no treatment given at that time. Normal echocardiogram. Isha Santamaria PA-C, 06/17/2021 8:24 AM Hx of preeclampsia, prior pr egnancy, currently 03/16/2019 05/28/2021 renal anomaly, single gestation 12/28/2018 12/24/2022 Echogenic intracardiac focus of fetus on ultrasound 12/28/2018 12/24/2022 09/28/2018 05/28/2021 Overview (04/12/2019): Component Latest Ref Rng & Units 04/04/2019 Vaginal/Rectal OB Strep B PCR Negative Estimated Date of Delivery: 05/04/19 Patient's last menstrual period was 07/26/2018. Last Tdap- 02/24/2019 Last Flu vaccine- 12/21/2018 Glucose (GTT) result- Component Latest Ref Rng & Units 01/27/2019 HEMOGLOBIN 12.0 - 16.0 g/dL 12.2 MCV 80 - 100 fL 95 GLUCOSE,GESTATIONAL 65 - 139 mg/dL 123 20 week US: Sonographic imaging demonstrates a single living intrauterine gestation. Fetus demonstrates a regular cardiac rate of 134 beats per minute. Fetus has a vertex position. The placenta lies posteriorly without evidence of placenta previa. Amniotic fluid volume appears normal. Single deepest vertical pocket: 3.7 cm. The cervix is closed and measures 4.6 cm in length. The composite ultrasound gestational age is calculated at 19 weeks 6 days with an estimated sonographic due date of 05/03/2019. The estimated weight is 302 grams which lies at the 42nd %. No Known Allergies OB History Para Term AB Living 2 1 1 0 0 1 SAB TAB Ectopic Multiple Live Births 0 0 0 0 1 # Outcome Date GA Lbr Alex/2nd Weight Sex Delivery Anes PTL Lv 2 Current 1 Term Create lab flowsheet for OB labs- needs Past Medical History: . Date ASCUS of cervix with negative high risk HPV 07/22/2016 07/22/16 ASCUS/HPV negative Mild intermittent asthma 07/30/2014 Preeclampsia, severe Past Surgical History: . Laterality Date SECTION No data on file. 2nd Problems (from 09/26/18 to present) No problems associated with this episode. EDA Benoit.....09/28/2018 8:47 AM Severe pre-eclampsia 05/23/2018 022 care, second trimester 01/25/2017 05/23/2018 Overview (05/18/2017): Low lying placenta on 20wk anatomy US. Repeat ordered 32wks. Estimated Date of Delivery: 06/05/17 Patient's last menstrual period was 08/29/2016 (exact date). Last Tdap- 03/19/2017 Last Flu vaccine- 02/17/2017 No Known Allergies Obstetric History T0 L0 SAB0 TAB0 Ectopic0 Multiple0 Live Births0 # Outcome Date GA Lbr Alex/2nd Weight Sex Delivery Anes PTL Lv 1 Current Component Latest Ref Rng & Units 07/22/2016 10/13/2016 10/13/2016 3:20 PM 3:20 PM CHLAMYDIA PROBE Negative N GONORRHOEAE PROBE Negative ANTIBODY SCREEN Negative Negative SPECIMEN EXPIRATION DATE/TIME 10/16/16 23:59 HEMOGLOBIN 12.0 - 16.0 g/dL 14.1 MCV 80 - 100 fL 94 RUBELLA IGG ANTIBODY Positive HPV RESULTS Negative Negative HEMOGLOBIN A1C SCREENING <6.4 % 4.6 ABORH B Rh Positive TREPONEMA PALLIDUM Negative Negative Culture Component Latest Ref Rng & Units 10/13/2016 12/07/2016 3:20 PM CHLAMYDIA PROBE N GONORRHOEAE PROBE ANTIBODY SCREEN Negative SPECIMEN EXPIRATION DATE/TIME HEMOGLOBIN 12.0 - 16.0 g/dL MCV 80 - 100 fL RUBELLA IGG ANTIBODY 1.69 HPV RESULTS Negative HEMOGLOBIN A1C SCREENING <6.4 % ABORH TREPONEMA PALLIDUM Negative Culture No growth (<1,000 CFU/mL) Component Latest Ref Rng & Units 05/10/2017 Culture No Group B Streptococcus isolated. Past Medical History: Diagnosis Date ASCUS of cervix with negative high risk HPV 07/22/2016 07/22/16 ASCUS/HPV negative Mild intermittent asthma 07/30/2014 Past Surgical History: Procedure Laterality Date NO PREVIOUS SURGERY No data on file. 1st Problems (from 10/13/16 to present) No problems associated with this episode. EDA Benoit.....01/26/2017 12:17 PM Preeclampsia, severe 022 Encounters Date Type Department Care Team Description 03/28/2024 10:21 AM [employer]ION [employer] - 03/28/2024 11:59 PM [employer] Hospital Encounter [facility] [address] [place] [address] Mame Barroso MD RUQ pain 03/28/2024 Travel 03/23/2024 11:15 AM [employer] Office Visit [facility] [address] [place] [address] Mame Barroso MD Follow Up (On going abdominal pain, 6 months) 03/23/2024 Travel 03/16/2024 Refill [facility] [address] [place] [address] Mame Barroso MD Refill Request (Cyclobenzaprine 5mg tablets) 01/27/2024 7:30 AM [employer] Ancillary Procedure [facility] [address] [place] [address] 01/27/2024 Travel 01/18/2024 Transcribe Orders [facility] [address] [place] [address] Jhony Reaves MD from Last 3 Months Immunizations Name Administration Dates Next Due COVID-19 vaccine (Moderna 10 0mcg/0.5mL) PF, MDV 04/16/2020,03/19/2020 Influenza, IIV3 (Age >=3 years) 05/14/2015 Influenza, IIV4 12/21/2018,02/17/2017 Influenza,CCIIV4 PRESERV FREE 12/17/2022 Tdap 02/24/2019,03/19/2017,08/26/2005 Family History Medical History Relation Name Comments Other Mother fibromyalgia Thyroid Disease Mother Relation Name Status Comments Mother Social History Tobacco Use Types Packs/Day Years Used Date Smoking Tobacco: Never Smokeless Tobacco: Never Tobacco Cessation:Counseling Given: Yes Comments:second hand smoke Alcohol Use Standard Drinks/Week Comments Yes 3 (1 standard drink = 0.6 oz pur e alcohol) wine on occassion PHQ-2 Answer Date Recorded PHQ-2 TOTAL SCORE 1 06/23/2023 Social Connections Answer Date Recorded Do you often feel lonely or isolated from those around you? 0 04/28/2023 Financial Resource Strain Answer Date R ecorded Difficulty of Paying Living Expenses 3 04/28/2023 Difficulty of Paying Living Expenses Not on file 04/28/2023 Food Insecurity Answer Date Recorded Do you worry your food will run out before you are able to buy more? 1 04/28/2023 Transportation Needs Answer Date Record ed Does lack of transportation keep you from medica l appointments? 1 04/28/2023 Does lack of transportation keep you from work, meetings or getting things that you need? 1 04/28/2023 Housing Stability Answer Date Recorded What is your housing situation today? 1 04/28/2023 Utilities Answer Date Recorded Do you have trouble paying f or utilities (for example, heat, electricity, water, phone)? 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 Not on file Not on file No t on file Obstetrics History Para Term AB IAB SAB Ectopic Multiple Livin g Live Births 3 2 2 2 2 Date Outcome GA Total Labor Labor/2nd/3rd Weight Sex Type Anes PTL Priya A1 A5 Name Clin Term F CS-LT ranv Living Term M CS-LT ranv Living Last Filed Vital Signs Vital Sign Reading Time Taken Comments Blood Pressure 131/81 03/23/2024 11:29 AM [employer] Pulse 74 03/23/2024 11:29 AM [employer] Temperature 37.1 C (98.8 F) 12/08/2023 2:34 PM CDT Respiratory Rate 16 09/25/2022 11:11 AM CDT Oxygen Saturation 100% 03/23/2024 11:29 AM [employer] Inhaled Oxygen Concentration - - Weight 46.5 kg (102 lb 9.6 oz) 03/23/2024 11:29 AM [employer] Height 158 cm (5' 2.21) 04/28/2023 7:39 AM [employer] Body Mass Index 18.64 04/28/2023 7:39 AM [employer] Plan of Treatment Upcoming Encounters Date Type Department Care Team (Late st Contact Info) Description 04/25/2024 8:30 AM [employer] Office Visit [facility] [address] [place] [address] Angela Matthews PA [address] [place] [address] Health Maintenance Due Date Last Done Comments COVID-19 vaccine series (2023- season) 2023 04/16/2020, 03/19/2020 Influenza for age 9-49 11/14/2023 3, 12/21/2018, 02/17/2017, Additional history exists BMI (ht and wt on same day) for age 18+ 04/28/2024 04/28/2023, 12/24/2022, 09/25/2022, Additional history exists Depression screening for age 12+ 06/22/2024 06/23/2023, 05/26/2023, 12/24/2022, Additional history exists Pap test for age 21-65 12/01/2024 4, 12/24/2022, 12/24/2022, Additional history exists Tetanus booster 02/24/2029 02/24/2019, 07/2017, 08/26/2005 HIV for age 15-65 Completed 10/14/2018 Tdap Completed 02/24/2019, 07/2017, 08/26/2005 Hepatitis C screening for age 18-79 Completed 12/24/2022 Pneumococcal series for age 6-49 Aged Out No longer eligible based on patient's age to complete this topic Procedures Procedure Name Priority Date/Time Associated Diagnosis Comments NM HEPATOBILIARY IMAGING WITH EF Routine 03/28/2024 12:05 PM [employer] RUQ pain URINALYSIS MACROSCOPIC - [facility] ONLY POC DIP ([facility]) Routine 03/23/2024 12:33 PM [employer] Right flank pain URINALYSIS MICROSCOPIC Routine 03/23/2024 12:32 PM [employer] Right flank pain URINE CULTURE Routine 03/23/2024 12:32 PM [employer] Right flank pain TRICHOMONAS, NAGA, AND BACTERIAL VAGINOSIS BY FELTON Routine 03/23/2024 12:28 PM [employer] Vaginal discharge GC CHLAMYDIA TRACH PROBE Routine 03/23/2024 12:28 PM [employer] Vaginal discharge US ABDOMEN LIMITED GALLBLADDER Routine 01/27/2024 7:59 AM [employer] Irregular bowel habits Intermittent constipation RUQ abdominal pain Constipation, unspecified constipation type DRAFTING SUPERVISOR THIN PREP PAP AND HPV DNA - AGE 25 AND OVER ([facility]) Routine 12/02/2023 2:50 PM CDT JOEL III (cervical intraepithelial neoplasia grade III) with severe dysplasia ANTI HCV Routine 12/24/2022 10:13 AM CDT Need for hepatitis C screening test ANTI HIV 1/2 Routine 10/14/2018 4:30 PM CDT Encounter for supervision of other normal in first trimester from Last 3 Months or Most Recently Relevant to Health Maintenance Results * NM HEPATOBILIARY IMAGING WITH EF (03/28/2024 12:05 PM [employer]) Anatomical Region Laterality Modality LIVER Nuclear Medicine 03/28/2024 3:23 PM [employer] Narrative 03/28/2024 3:23 PM [employer] For Patients: As a result of the Cures Act, medical imaging exams and procedure reports are released immediately into your electronic medical record. You may view this report before your referring provider. If you have questions, please contact your health care provider. Indication: Abdominal pain Technique: Nuclear medicine hepatobiliary scan with gallbladder ejection fraction after the intravenous administration of 5.2 millicuries technetium 99 M Mebrofenin and 0.9 micrograms of CCK. Comparison: Abdominal ultrasound 01/27/2024 Findings: Study was completed by utilizing this facilities SPEED HIDA d/t camera availability. Imaging was not started until 25 minutes into the study at which time there was visualization of the gallbladder, small bowel and stomach/enterogastric reflux. After CCK there is additionally mild to moderate enterogastric reflux. Visually normal gallbladder contraction is identified. Calculated gallbladder ejection fraction is 67 percent. Impression: Somewhat limited study as above. Mild to moderate enterogastric reflux, correlate for alkaline gastritis. Normal gallbladder ejection fraction. Dictated by Mio Tucker MD @ 03/28/2024 3:23:22 PM (Electronically Signed) Procedure Note Mio Tucker MD - 03/28/2024 For Patients: As a result of the Cures Act, medical imagingexams and procedure reports are released immediately into your electronicmedical record. You may view this report before your referring provider.If you have questions, please contact your health care provider. Indication: Abdominal pain Technique: Nuclear medicine hepatobiliary scan with gallbladder ejection fractionafter the intravenous administration of 5.2 millicuries technetium 99 MMebrofenin and 0.9 micrograms of CCK. Comparison: Abdominal ultrasound 01/27/2024 Findings: Study was completed by utilizing this facilities SPEED HIDA d/t cameraavailability. Imaging was not started until 25 minutes into the study at which timethere was visualization of the gallbladder, small bowel andstomach/enterogastric reflux. After CCK there is additionally mild tomoderate enterogastric reflux. Visually normal gallbladder contraction isidentified. Calculated gallbladder ejection fraction is 67 percent. Impression: Somewhat limited study as above. Mild to moderate enterogastric reflux,correlate for alkaline gastritis. Normal gallbladder ejection fraction. Dictated by Mio Tucker MD @ 03/28/2024 3:23:22 PM (Electronically Signed) Mame Barroso MD NM Final Resul t * POCT Urinalysis Dipstick Only (03/23/2024 12:33 PM [employer]) PH 7.5 5.0 - 8.0 [facility] SPECIFIC GRAVITY 1.015 1.001 - 1.035 [facility] GLUCOSE NEGATIVE NEGATIVE [facility] BILIRUBIN NEGATIVE NEGATIVE [facility] KETONES NEGATIVE NEGATIVE [facility] OCCULT BLOOD NEGATIVE NEGATIVE [facility] PROTEIN NEGATIVE NEGATIVE [facility] NITRITE NEGATIVE NEGATIVE [facility] LEUKOCYTE ESTERASE NEGATIVE NEGATIVE [facility] Urine URINE SPECIMEN / Unknown 03/23/2024 12:33 PM [employer] 03/23/2024 12:33 PM [employer] Mame Barroso MD URINE Final Resul t [facility] [address] [place] [address], [place] [phone] [facility] [address] [place] [address] * URINALYSIS MICROSCOPIC (03/23/2024 12:32 PM [employer]) RBC 0-2 0-2, None Seen /HPF 03/23/2024 11:58 PM [employer] CONS[employer]ANT SALES [facility] WBC 0-2 0-2, 3-5, None Seen /HPF 03/23/2024 11:58 PM [employer]ION CONSULTANT SALES [facility] BACTERIA None Seen None Seen, Rare, Few Bacteria/ HPF 03/23/2024 11:58 PM [employer] CONS[employer]ANT SALES [facility] EPITHELIAL CELLS None Seen None Seen, Few Epi/HPF 03/23/2024 11:58 PM [employer]ION CONS[employer]ANT SALES [facility] HYALINE CASTS 0-2 0-2, 3-5 /LPF 03/23/2024 11:58 PM [employer]ES [facility] Urine URINE SPECIMEN / Unknown Non-Blood / Unknown 03/23/2024 12:32 PM [employer] 03/23/2024 12:32 PM [employer] Mame Barroso MD URINE Final Resul t [facility] [address] [place] [address], * URINE CULTURE (03/23/2024 12:32 PM [employer]) CULTURE <10,000 CFU/mL multiple organisms 03/25/2024 3:08 PM [employer]ES [facility] Urine URINE SPECIMEN / Unknown Non-Blood / Unknown 03/23/2024 12:32 PM [employer] 03/23/2024 12:32 PM [employer] Mame Barroso MD MICROBIOLOGY Final Resul t Performing Organization Address City/[facility]/ZIP Co de Phone Number [facility] [address] [address], [place] * TRICHOMONAS, NAGA, AND BACTERIAL VAGINOSIS BY FELTON (03/23/2024 12:28 PM [employer]) NAGA SPECIES Negative Negative 3:02 PM [employer] [facility] NAGA GLABRATA Negative Negative 03/24/2024 3:02 PM [employer] [facility] TRICHOMONAS VVA Negative Negative 3:02 PM [employer] [facility] BACTERIAL VAGINOSIS Negative Negative 03/24/2024 3:02 PM [employer] [facility] Other VAGINAL SWAB / Unknown Non-Blood / Unknown 03/23/2024 12:28 PM [employer] 03/23/2024 12:29 PM [employer] Mame Barroso MD MICROBIOLOGY Final Resul t Performing Organization Address [facility] Co de Phone Number [facility] [address] [place] [address], [place] * GC & CHLAMYDIA DNA PCR [[id number]] (03/23/2024 12:28 PM [employer]) CHLAMYDIA PROBE Negative 3:19 PM [employer] [facility] N GONORRHOEAE PROBE Negative 03/24/2024 3:19 PM [employer]ES [facility] Other VAGINAL SWAB / Unknown Non-Blood / Unknown 03/23/2024 12:28 PM [employer] 03/23/2024 12:29 PM [employer] Mame Barroso MD MICROBIOLOGY Final Resul t Performing Organization Address City/[facility]/ZIP Co de Phone Number [facility] [address] [place] [id number], [place] * US ABDOMEN LIMITED GALLBLADDER (01/27/2024 7:59 AM [employer]) Anatomical Region Laterality Modality Abdomen Ultrasound 01/27/2024 3:36 PM [employer] Impressions 01/27/2024 3:36 PM [employer] Normal gallbladder ultrasound. Dictated by Ethan Ji MD @ 01/27/2024 3:36:55 PM (Electronically Signed) Narrative 01/27/2024 3:36 PM [employer] For Patients: As a result of the Cures Act, medical imaging exams and procedure reports are released immediately into your electronic medical record. You may view this report before your referring provider. If you have questions, please contact your health care provider. INDICATION: RUQ abdominal pain COMPARISON: CT 12/02/2023 TECHNIQUE: Real time peterson scale imaging and color Doppler analysis was performed of the gallbladder. FINDINGS: The gallbladder is of normal size and there is no evidence of intraluminal stones or sludge. The gallbladder wall measures 1 mm in thickness. The common bile duct is of normal size and measures 2 mm in diameter at the level of the ed hepatis. Procedure Note Ethan Ji MD - 01/27/2024 For Patients: As a result of the Cures Act, medical imagingexams and procedure reports are released immediately into your electronicmedical record. You may view this report before your referring provider.If you have questions, please contact your health care provider. INDICATION: RUQ abdominal pain COMPARISON: CT 12/02/2023 TECHNIQUE: Real time peterson scale imaging and color Doppler analysis was performed ofthe gallbladder. FINDINGS: The gallbladder is of normal size and there is no evidence of intraluminalstones or sludge. The gallbladder wall measures 1 mm in thickness. Thecommon bile duct is of normal size and measures 2 mm in diameter at thelevel of the ed hepatis. IMPRESSION: Normal gallbladder ultrasound. Dictated by Ethan Ji MD @ 01/27/2024 3:36:55 PM (Electronically Signed) us Jhony Reaves MD Final Resu lt * DRAFTING SUPERVISOR THIN PREP PAP AND HPV DNA - AGE 25 AND OVER ([facility]) (12/02/2023 2:50 PM CDT) Pathologist [facility] CLINICAL INFORMATION [facility] Comment:Normal exam LMP [facility] Comment:10/23/23 PREV. PAP [facility] Comment:12/24/22 NIL PREV. BX [facility] Comment:N/A SOURCE DRAFTING SUPERVISOR [facility] Comment:Cervix STATEMENT OF ADEQUACY [facility] Comment: Satisfactory for evaluation. Endocervical/transformation zone component present. INTERPRETATION/RESU LT [facility] Comment: Cytology Results: Negative for intraepithelial lesion or malignancy. COMMENT [facility] Comment: This Pap test has been evaluated with computer assisted technology. LAPEL PADDER [facility] Comment: AUC, CT(ASCP) CT Screening location: [address] [address] THINPREP TIS PAP ALWAYS MESSAGE [facility] Comment: EXPLANATORY NOTE: The Pap is a screening test for cervical cancer. It is not a diagnostic test and is subject to false negative and false positive results. It is most reliable when a satisfactory sample, regularly obtained, is submitted with relevant clinical findings and history, and when the Pap result is evaluated along with historic and current clinical information. HPV HIGH RISK Not Detected NOT DETECTED [facility] Comment: Not Detected High Risk HPV types (16,18,31,33,35,39,45,51,52, 56,58,59,66,68) were not detected. Other HPV types which cause anogenital lesions may be present. The significance of the other types of HPV in malignant processes has not been established. Methodology: Real Time PCR Other (Other) 12/02/2023 2:5 0 PM CDT 12/03/2023 7:48 AM CDT us Mame Barroso MD PATHOLOGY/CYTOLOGY Final Re sult [address] [address], [facility] [employer] [address] * ANTI HCV (12/24/2022 10:13 AM CDT) HEPATITIS C ANTIBODY Non-Reacti ve Non-React miller 12/24/2022 5:43 PM CDT [facility] Comment:Please note, per www .CDC.gov: If a patient is known to be at high risk of HCV infection, or is symptomatic, and the physician's suspicion of HCV infection is high, HCV RNA testing is often employed and is of diagnostic value, even after an initial negative anti-HCV test result. Blood BLOOD SPECIMEN / Unknown Venipuncture / Unknown 12/24/2022 10:13 AM CDT 12/24/2022 10:13 AM CDT us Mame Barroso MD SEND OUTS Final Resul t [facility] [address] [place] [address], * ANTI HIV 1/2 (10/14/2018 4:30 PM CDT) HIV-1/HIV-2 ANTIBODY Non-Reacti ve Non-Reacti ve 10/15/2018 4:42 PM CDT [facility] Comment:HIV-1 p24 and HIV-1/ HIV-2 Ab not detected. Blood BLOOD SPECIMEN / Unknown Venipuncture / Unknown 10/14/2018 4:30 PM CDT 10/14/2018 4:34 PM CDT us Mame Barroso MD SEND OUTS Final Resul t [facility] [address] [place] [address], from Last 3 Months or Most Recently Relevant to Health Maintenance Insurance MEDICA CHOICE Advance Directives * Full Code (Latest Code Status on File) Date Activated Date Inactivated Comments 12/05/2021 8:34 AM 12/05/2021 1:29 PM Question Answer Comments Code Status Discussion: Reviewed Preferences Care Teams Slip Box Changer Relationship Specialty Start Date End Date Mame Barroso MD [address] [place] [address] PCP - General Family Practice 01/12/18
[2024-04-19 20:15] VITALS: BP 123/76; PULSE 83; RESP 20; TEMP 37.2; O2SAT 97; BMI 18.1
[2024-04-19 21:03] LABS: PCR FLU A POSITIVE PCR FLU A (Negative); PCR FLU B Negative PCR FLU B (Negative); PCR RSV Negative PCR RSV (Negative); SARS PCR* Negative SARS-CoV-2 (Negative)
--- NOTE | 2024-04-19 21:19 | ED.GENADULT ---
HPI - General Adult General Time Seen by Provider: 21:19 Date Seen: 04/19/24 Chief complaint: Cough Stated complaint: Flu like symptoms Time Seen by Provider: 04/19/24 21:19 Source: patient and RN notes reviewed Mode of arrival: ambulatory Limitations: no limitations History of Present Illness HPI narrative: This 28-year-old female is coming in with increasing symptoms of upper respiratory illness that started yesterday. She is having runny nose, nasal congestion, dry cough. She is noting chest pain with coughing. She has been tired. She does have underlying asthma. 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 Will provider note for work. Related Data Home Medications ?Medication ?Instructions ?Recorded ?Confirmed albuterol 90 mcg/actuation aerosol 90 mcg inhalation DAILY 05/24/22 04/19/24 inhaler albuterol sulfate 2.5 mg/3 mL 2.5 mg inhalation Q6H PRN 05/24/22 04/19/24 (0.083 %) solution for nebulization citalopram 10 mg tablet 10 mg PO QDAY 05/24/22 04/19/24 dextroamphetamine-amphetamine 5 mg 5 mg PO QDAY PRN 05/24/22 04/19/24 tablet (Adderall) dextroamphetamine-amphetamine ER 25 mg PO QAM 05/24/22 04/19/24 25 mg 24hr capsule,extend release (Adderall XR) levonorgestrel 0.15 mg-ethinyl 1 tab PO DAILY 01/12/24 04/19/24 estradiol 0.03 mg tablet (Kurvelo (28)) Previous Rx's ?Medication ?Instructions ?Recorded acetaminophen 300 mg-codeine 30 mg 1 tab PO Q6H PRN pain #15 tabs 10/25/22 tablet Allergies Allergy/AdvReac Type Severity Reaction Status Date / Time No Known Allergies Allergy Verified 04/19/24 20:18 Review of Systems Narrative: As per HPI. PFSH PFSH Medical History ADHD (attention deficit hyperactivity disorder) ?F90.9 - Attention-deficit hyperactivity disorder, unspecified type (ICD-10) Surgical History Status post repeat low transverse section ?Z98.891 - History of uterine scar from previous surgery (ICD-10) Status post primary low transverse section ?Z98.891 - History of uterine scar from previous surgery (ICD-10) Social History Smoking Status: Never smoker Do you use any of these nicotine containing products: None Second hand tobacco smoke exposure: No How often do you have a drink containing alcohol: 2-4 times a month How often do you have six or more drinks on one occasion: Never AUDIT-C Alcohol total score: 2 Non-prescribed substance use: denies use service: No Exam Const: Vital Signs, click to edit/add: Vital Signs - 24 hr 04/19/24 20:15 Temperature 99.0 F Pulse Rate [Pulse Oximeter] 83 Respiratory Rate 20 Blood Pressure [Le ft Upper Arm] 123/76 Pulse Oximetry 97 Oxygen Delivery Me thod Room Air This 28-year-old female is alert, interactive, no apparent distress. She able speak in complete sentences. Sclera slightly pink but no perioral swelling or erythema, no drainage noted. Pupils equal round reactive. TMs canals normal. Oropharynx stomach 0 succumbed to exudates erythema. Neck is supple, no adenopathy. Lungs are clear, good air entry, no wheeze or crackles. CV regular rate and rhythm, no murmur, normal S1-S2. Documenting provider has reviewed patient's vital signs: yes Course Course ED Course: Was able to review with patient that she is positive for influenza A, nursing had done her triple viral swab during triage appropriately. Vital Signs Vital signs: Initial Vital Signs Temperature 99.0 F 04/19/24 20:15 Temperature Source Temporal Artery Scan 04/19/24 20:15 Pulse Rate 83 04/19/24 20:15 Pulse Rhythm Regular 04/19/24 20:15 Respiratory Rate 20 04/19/24 20:15 Blood Pressure 123/76 04/19/24 20:15 Blood Pressure Mean 91 04/19/24 20:15 Blood Pressure Position Sitting 04/19/24 20:15 Pulse Oximetry 97 04/19/24 20:15 Oxygen Delivery Method Room Air 04/19/24 20:15 Vital Signs Temperature 99.0 F 04/19/24 20:15 Pulse Rate 83 04/19/24 20:15 Respiratory Rate 20 04/19/24 20:15 Blood Pressure 123/76 04/19/24 20:15 Pulse Oximetry 97 04/19/24 20:15 Oxygen Delivery Method Room Air 04/19/24 20:15 Temperature 99.0 F 04/19/24 20:15 Pulse Rate 83 04/19/24 20:15 Respiratory Rate 20 04/19/24 20:15 Blood Pressure 123/76 04/19/24 20:15 Pulse Oximetry 97 04/19/24 20:15 Oxygen Delivery Method Room Air 04/19/24 20:15 Medical Decision Making Lab Data Lab results reviewed: Yes I reviewed the patient's lab results Labs: Lab Results 04/19/24 Range/Units 20:20 SARS-CoV-2 (PCR) Negative SARS-CoV-2 (Negative) Influenza Type A (PCR) POSITIVE PCR FLU A A (Negative) Influenza Type B (PCR) Negative PCR FLU B (Negative) RSV (PCR) Negative PCR RSV (Negative) Discharge Plan Discharge Clinical Impression: Influenza A Patient Disposition: Home, Self-Care Condition: Stable Instructions: Influenza (ED) Additional Instructions: Take Tamiflu 75 mg twice daily for a total of 10 doses, take your 1st dose tonight KASSY. Can use your albuterol if needed for wheezing or coughing per prescription instructions. May need to use Tylenol and ibuprofen per bottle directions as needed for fever or discomfort. If you are not improving over the next week, have concerns for worsening or increasing respiratory symptoms at any point, please seek re-evaluation. Do recommend that you absolutely stay out of the senior care for work until you are probably done with the Tamiflu. You can consult your work as to when they have guidelines for return for you. Activity Level: Activity as Tolerated Prescriptions: No Action dextroamphetamine-amphetamine [Adderall XR] 25 mg capsule,extended release 24hr 25 mg PO QAM dextroamphetamine-amphetamine [Adderall] 5 mg tablet 5 mg PO QDAY PRN citalopram 10 mg tablet 10 mg PO QDAY albuterol sulfate 2.5 mg /3 mL (0.083 %) solution for nebulization 2.5 mg inhalation Q6H PRN albuterol 90 mcg/actuation aerosol 90 mcg inhalation DAILY acetaminophen-codeine 300-30 mg tablet 1 tab PO Q6H PRN (Reason: pain) Qty: 15 0RF levonorgestrel-ethinyl estrad [González (28)] 0.15-0.03 mg tablet 1 tab PO DAILY Follow Up/Referrals: Mame Barroso MD [Primary Care Provider] - Stand Alone Forms: [employer] Info Instructions
--- OUTSIDE RECORDS SUMMARY | 2024-04-19 21:34 | XMS_ITS | Clinical Summary ---
Author Organization [facility] Address [place], [place] [address] Care Team Providers Care Wreath Maker Name Role Phone Mame Barroso MD Primary Care Provider [phone] Allergies No known active allergies Medications acetaminophen [...] (12/14/2023): 07/2016 ASCUS/HPV negative. 08/2021 HSIL. 09/2021 Cadet, JOEL 2-3 11/2021 LEEP, JOEL 1 12/2022 [...] Department Care Team Description 03/28/2024 10:21 AM MEAT WASHER - 03/28/2024 11:59 PM MEAT WASHER Hospital Encounter [facility] [address] [place] [address] Mame Barroso MD RUQ pain 03/28/2024 Travel 03/23/2024 11:15 AM MEAT WASHER Office Visit [facility] [address] [place] [address] Mame Barroso MD Follow Up (On going abdominal pain, 6 months) 03/23/2024 Travel 03/16/2024 Refill [facility] [address] [place] [address] Mame Barroso MD Refill Request (Cyclobenzaprine 5mg tablets) 01/27/2024 7:30 AM MEAT WASHER Ancillary Procedure [facility] [address] [place] [address] 01/27/2024 Travel 01/18/2024 Transcribe Orders [facility] [address] [place] [address] Jhony Reaves MD from Last 3 Months [...] Sex Assigned at Female 03/30/2020 1:27 PM MEAT WASHER Legal Sex Female 10:10 AM CDT Gender Identity Female 03/30/2020 1:27 PM MEAT WASHER Sexual Orientation Straight 03/30/2020 1: 27 PM MEAT WASHER 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 Not on file No [...] Comments Blood Pressure 131/81 03/23/2024 11:29 AM MEAT WASHER Pulse 74 03/23/2024 11:29 AM MEAT WASHER Temperature 37.1 C (98.8 F) 12/08/2023 2:34 PM CDT Respiratory Rate 16 09/25/2022 11:11 AM CDT Oxygen Saturation 100% 03/23/2024 11:29 AM MEAT WASHER Inhaled Oxygen Concentration - - Weight 46.5 kg (102 lb 9.6 oz) 03/23/2024 11:29 AM MEAT WASHER Height 158 cm (5' 2.21) 04/28/2023 7:39 AM MEAT WASHER Body Mass Index 18.64 04/28/2023 7:39 AM MEAT WASHER Plan of Treatment Upcoming Encounters Date Type Department Care Team (Late st Contact Info) Description 04/25/2024 8:30 AM MEAT WASHER Office Visit [facility] [address] [place] [address] Angela Matthews PA [address] [place] [address] Health Maintenance Due Date Last Done Comments [...] IMAGING WITH EF Routine 03/28/2024 12:05 PM MEAT WASHER RUQ pain URINALYSIS MACROSCOPIC - [facility] ONLY POC DIP ([facility]) Routine 03/23/2024 12:33 PM MEAT WASHER Right flank pain URINALYSIS MICROSCOPIC Routine 03/23/2024 12:32 PM MEAT WASHER Right flank pain URINE CULTURE Routine 03/23/2024 12:32 PM MEAT WASHER Right flank pain TRICHOMONAS, NAGA, AND BACTERIAL VAGINOSIS BY FELTON Routine 03/23/2024 12:28 PM MEAT WASHER Vaginal discharge GC CHLAMYDIA TRACH PROBE Routine 03/23/2024 12:28 PM MEAT WASHER Vaginal discharge US ABDOMEN LIMITED GALLBLADDER Routine 01/27/2024 7:59 AM MEAT WASHER Irregular bowel habits Intermittent constipation RUQ abdominal pain Constipation, unspecified constipation type RECRUITING MANAGER THIN PREP PAP AND HPV DNA - [...] HEPATOBILIARY IMAGING WITH EF (03/28/2024 12:05 PM MEAT WASHER) Anatomical Region Laterality Modality LIVER Nuclear Medicine 03/28/2024 3:23 PM MEAT WASHER Narrative 03/28/2024 3:23 PM MEAT WASHER For Patients: As a result of the [...] POCT Urinalysis Dipstick Only (03/23/2024 12:33 PM MEAT WASHER) PH 7.5 5.0 - 8.0 [facility] SPECIFIC GRAVITY 1.015 1.001 - 1.035 [facility] GLUCOSE NEGATIVE NEGATIVE [facility] BILIRUBIN NEGATIVE NEGATIVE [facility] KETONES NEGATIVE NEGATIVE [facility] OCCULT BLOOD NEGATIVE NEGATIVE [facility] PROTEIN NEGATIVE NEGATIVE [facility] NITRITE NEGATIVE NEGATIVE [facility] LEUKOCYTE ESTERASE NEGATIVE NEGATIVE [facility] Urine URINE SPECIMEN / Unknown 03/23/2024 12:33 PM MEAT WASHER 03/23/2024 12:33 PM MEAT WASHER Mame Barroso MD URINE Final Resul t [facility] [address] [place] [address], [place] [phone] [facility] [address] [place] [address] * URINALYSIS MICROSCOPIC (03/23/2024 12:32 PM MEAT WASHER) RBC 0-2 0-2, None Seen /HPF 03/23/2024 11:58 PM MEAT WASHER [facility] WBC 0-2 0-2, 3-5, None Seen /HPF 03/23/2024 11:58 PM MEAT WASHER [facility] BACTERIA None Seen None Seen, Rare, Few Bacteria/ HPF 03/23/2024 11:58 PM MEAT WASHER [facility] EPITHELIAL CELLS None Seen None Seen, Few Epi/HPF 03/23/2024 11:58 PM MEAT WASHER [facility] HYALINE CASTS 0-2 0-2, 3-5 /LPF 03/23/2024 11:58 PM MEAT WASHER [facility] Urine URINE SPECIMEN / Unknown Non-Blood / Unknown 03/23/2024 12:32 PM MEAT WASHER 03/23/2024 12:32 PM MEAT WASHER aMme Barroso MD URINE Final Resul t [facility] [address] [place] [address], * URINE CULTURE (03/23/2024 12:32 PM MEAT WASHER) CULTURE <10,000 CFU/mL multiple organisms 03/25/2024 3:08 PM MEAT WASHER [facility] Urine URINE SPECIMEN / Unknown Non-Blood / Unknown 03/23/2024 12:32 PM MEAT WASHER 03/23/2024 12:32 PM MEAT WASHER Mame Barroso MD MICROBIOLOGY Final Resul t Performing Organization Address City/[facility]/ZIP Co de Phone Number [facility] [address] [address], [place] * TRICHOMONAS, NAGA, AND BACTERIAL VAGINOSIS BY FELTON (03/23/2024 12:28 PM MEAT WASHER) NAGA SPECIES Negative Negative 3:02 PM MEAT WASHER [facility] NAGA GLABRATA Negative Negative 03/24/2024 3:02 PM MEAT WASHER [facility] TRICHOMONAS VVA Negative Negative 3:02 PM MEAT WASHER [facility] BACTERIAL VAGINOSIS Negative Negative 03/24/2024 3:02 PM MEAT WASHER [facility] Other VAGINAL SWAB / Unknown Non-Blood / Unknown 03/23/2024 12:28 PM MEAT WASHER 03/23/2024 12:29 PM MEAT WASHER Mame Barroso MD MICROBIOLOGY Final Resul t Performing Organization Address [facility] Co de Phone Number [facility] [address] [place] [address], [place] * GC & CHLAMYDIA DNA PCR [[id number]] (03/23/2024 12:28 PM MEAT WASHER) CHLAMYDIA PROBE Negative 3:19 PM MEAT WASHER [facility] N GONORRHOEAE PROBE Negative 03/24/2024 3:19 PM MEAT WASHER [facility] Other VAGINAL SWAB / Unknown Non-Blood / Unknown 03/23/2024 12:28 PM MEAT WASHER 03/23/2024 12:29 PM MEAT WASHER Mame Barroso MD MICROBIOLOGY Final Resul t Performing Organization Address [facility]/ZIP Co de Phone Number [facility] [address] [place] [address], [place] * US ABDOMEN LIMITED GALLBLADDER (01/27/2024 7:59 AM MEAT WASHER) Anatomical Region Laterality Modality Abdomen Ultrasound 01/27/2024 3:36 PM MEAT WASHER Impressions 01/27/2024 3:36 PM MEAT WASHER Normal gallbladder ultrasound. Dictated by Ethan Ji MD @ 01/27/2024 3:36:55 PM (Electronically Signed) Narrative 01/27/2024 3:36 PM MEAT WASHER For Patients: As a result of the [...] Jhony Reaves MD Final Resu lt * RECRUITING MANAGER THIN PREP PAP AND HPV DNA - AGE 25 AND OVER (QUEST) (12/02/2023 2:50 PM CDT) Pathologist [facility] CLINICAL INFORMATION [facility] Comment:Normal exam LMP [facility] Comment:10/23/23 PREV. PAP [facility] Comment:12/24/22 NIL PREV. BX [facility] Comment:N/A SOURCE RECRUITING MANAGER [facility] Comment:Cervix STATEMENT OF ADEQUACY [facility] Comment: Satisfactory for evaluation. Endocervical/transformation zone component present. INTERPRETATION/RESU LT [facility] Comment: Cytology Results: Negative for intraepithelial lesion or malignancy. COMMENT [facility] Comment: This Pap test has been evaluated with computer assisted technology. SEMICONDUCTOR WAFERS ETCH OPERATOR [facility] Comment: AUC, CT(ASCP) CT Screening location: [address] [address] THINPREP TIS PAP ALWAYS MESSAGE [facility] Comment: EXPLANATORY NOTE: The Pap is a [...] HPV HIGH RISK Not Detected NOT DETECTED [facility] Comment: Not Detected High Risk HPV types (16,18,31,33,35,39,45,51,52, 56,58,59,66,68) were not detected. Other HPV types which cause anogenital lesions may be present. The significance of the other types of HPV in malignant processes has not been established. Methodology: Real Time PCR Other (Other) 12/02/2023 2:5 0 PM CDT 12/03/2023 7:48 AM CDT us Mame Barroso MD PATHOLOGY/CYTOLOGY Final Re sult [address] [address], [facility] [employer] [address] * ANTI HCV (12/24/2022 10:13 AM CDT) HEPATITIS C ANTIBODY Non-Reacti ve Non-React miller 12/24/2022 5:43 PM CDT [facility] [employer] Comment:Please note, per www .CDC.gov: [...] Barroso MD SEND OUTS Final Resul t [facility] [address] [place] [address], * ANTI HIV 1/2 (10/14/2018 4:30 PM CDT) HIV-1/HIV-2 ANTIBODY Non-Reacti ve Non-Reacti ve 10/15/2018 4:42 PM CDT [facility] Comment:HIV-1 p24 and HIV-1/ HIV-2 Ab not detected. Blood BLOOD SPECIMEN / Unknown Venipuncture / Unknown 10/14/2018 4:30 PM CDT 10/14/2018 4:34 PM CDT us Mame Barroso MD SEND OUTS Final Resul t [facility] [address] [place] [address], from Last 3 Months or Most Recently Relevant to Health Maintenance Insurance MEDICA CHOICE Advance Directives * Full Code (Latest Code Status on File) Date Activated Date Inactivated Comments 12/05/2021 8:34 AM 12/05/2021 1:29 PM Question Answer Comments Code Status Discussion: Reviewed Preferences Care Teams Wreath Maker Relationship Specialty Start Date End Date Mame Barroso MD [address] [place] [address] PCP - General Family Practice 01/12/18
--- OUTSIDE RECORDS SUMMARY | 2024-04-19 21:34 | XMS_ITS | Continuity of Care Document ---
Author Organization [facility] Address [address] [address] [place] [address] Phone Care Team Providers Care Marketing Strategy Analyst Name Role Phone Jorge Solis MD Unavailable [...] Diagnoses Date Provider Providers Copied on Encounter [facility], [address] [address], [place], [id number], [place] tel:[phone] [facility] No Information 5 Gene Patel. [address] [place] [address], [address], [id number], [place]. tel:[phone] Offic/outpt E&m Estab Mod-hi 2 [facility], [address] [address], [place], [id number], [place] tel:[phone] [facility] GI Symptoms or Concerns (chief complaint) RUQ abdominal painIrregular bowel habits 5 Joel Toro. [address] [place] [address], [id number], [place]. tel:[phone] Referring Provider: Referral Self, USE FOR SELF REFERRALS. Offic/outpt E&m Estab Low-mod [facility], [address] [address], [place], [id number], [place] tel:[phone] [facility] GI Symptoms or Concerns (chief complaint) Irregular bowel habitsIntermitte nt constipationRUQ abdominal painConstipation , unspecified constipation type 4 [place]. [address] [place] [address], [id number], [place]. tel:[phone] Referring Provider: Referral Self, USE FOR SELF REFERRALS. [facility], [address] [address], [place], [id number], [place] tel:[phone] [facility] Diarrhea, unspecifiedHemor rhage of anus and rectumHemorrhoid s, internalOther hemorrhoidsDiarr hea, unspecifiedHemor rhage of anus and rectum Dec- [place]. [address] [place] [address], [facility] [address], [place], [id number], . tel:[phone] Referring Provider: Referral Self, USE FOR SELF REFERRALS. Office Cons New/estab Mod [facility], [address] [address], [place], [place], [id number], tel:[phone] [facility] GI Symptoms or Concerns (chief complaint) Diarrhea, unspecified typeRectal bleedingRight upper quadrant pain Sep-3 4 Jasmin Saldaña. [address] [place] [address], [facility] [address], [place], [id number], [place]. tel:[phone] Referring Provider: Mame Barroso MD, [address] [place] [address], [address]. tel:[phone] [facility], [address] [address], [place], [place], [id number], tel:[phone] No Information Nov- No Information Referring Provider: Mame Barroso MD, [address] [place] [address], [address]. tel:[phone] Family History Family Member Type Diagnosis Age At Onset Mother Problem (finding) Cirrhosis Brother Problem (finding) Celiac disease Brother Problem (finding) Family history of Ulcer ative colitis Mother Problem (finding) Thyroid disorder Brother Problem (finding) Diverticular disease Immunizations Vaccine Date Status Comments Influenza, Madin Carmen Canin e Kidney, subunit, quadrivalent, injectable, preservative [...] Registry Payers Payer name Insurance type Covered green party ID Authoriza tion(s) [employer] CI [id number] Social History Type Description Quantity Date Captured [...] has alternating bowel habits from type I [place] stool chart that occurs 70% of the [...] symptoms. CT scan from December 01 through [facility] in the [facility] does not show active inflammatory disease. There is moderate stool burden through the colon. There are vascular findings to raise question of pelvic congestion syndrome. There are stable subcentimeter hepatic cysts and a [place] tail liver morphology. Urinalysis that day showed [...]
[2024-04-19 21:41] VITALS: BP 118/70; PULSE 81; RESP 20; TEMP 37.2; O2SAT 97
[2024-04-19 21:42] VITALS: BP 118/70; PULSE 81; RESP 20; TEMP 37.2
== END 2024-04-19 21:42 | disposition home or self-care (01) ==
PROVIDERS: Emergency Provider Family Medicine; PCP Family Medicine
DX: J10.1 Influenza due to other identified influenza virus with other respiratory manifestations (principal)
CPT/HCPCS: 87631; 99283

== ENCOUNTER 2024-09-10 15:33 | Emergency (ER) | payer OTHER, SELFPAY ==
[2024-09-10 15:49] VITALS: BP 118/77; PULSE 97; RESP 18; TEMP 36.7; O2SAT 99; BMI 18.3
[2024-09-10 16:14] LABS: Appearance Urine Clear (Clear); Bilirubin Urine Negative (Negative); Blood Urine 1+ (Negative); Color Urine Yellow (Yellow); Glucose Urine Negative (Negative); Ketones Urine Negative (Negative); Protein Urine Negative (Negative)
[2024-09-10 16:15] LABS: Bacteria Urine Few; Leukocyte Esterase Urine Trace (Negative); Nitrite Urine Negative (Negative); RBC Urine 0-2 (0-2); Squamous Epithelial Cell Urine Few (None-Few); Urobilinogen Urine 0.2 (0.2-1.0)
--- NOTE | 2024-09-10 17:35 | CRLHL7_ITS ---
For Patients: As a result of the Century Cures Act, medical imaging exams and procedure reports are released immediately into your electronic medical record. You may view this report before your referring provider. If you have questions, please contact your health care provider. INDICATION: Periumbilical pain - 2 months post op TECHNIQUE: CT abdomen and pelvis acquired with 50 cc Isovue 370 IV contrast. COMPARISON: None. FINDINGS: Lower chest: Lung bases are clear. ABDOMEN: Liver: Normal enhancement. Subcentimeter hypodensities are too small to characterize however statistically represent cysts. Gallbladder and biliary: Normal gallbladder without radiopaque stone. Normal caliber bile ducts. Spleen: Normal size and enhancement. Pancreas: Normal enhancement without peripancreatic inflammatory changes or ductal dilatation. Adrenal glands: Normal adrenal glands. Kidneys and ureters: Normal enhancement. No radio-opaque calculi. No hydroureteronephrosis. GI tract: The stomach is relatively decompressed. Normal caliber small and large bowel loops. Normal appendix. Vascular structures: Normal caliber abdominal aorta. Lymph nodes: No lymphadenopathy in the abdomen or pelvis by size criteria. Peritoneum: No free air. PELVIS: Genitourinary system: Urinary bladder is decompressed. Hysterectomy SKELETAL STRUCTURES AND SOFT TISSUES: No suspicious lytic or blastic lesions. IMPRESSION: No discrete acute process in the abdomen or pelvis. No obstruction. No hydroureteronephrosis. Normal appendix. Please note that all CT scans at this facility use dose modulation, iterative reconstruction, and/or weight-based dosing when appropriate to reduce radiation dose to as low as reasonably achievable. Dictated by Ethan Beaulieu MD @ 09/10/2024 6:27:53 PM (Electronically Signed)
--- OUTSIDE RECORDS SUMMARY | 2024-09-10 17:45 | XMS_ITS | Clinical Summary ---
Author Organization [employer] Address [facility] [place] [address] Care Team Providers Care Web Application Tester Name Role Phone Mame Barroso MD Primary Care Provider [phone] Allergies No known active allergies Medications fluticasone propion-salmeteroL (Advair Diskus) 250-50 mcg/Dose diskus inhalerIndications :Mild intermittent asthma without complication (HC) Inhale 1 Puff by mouth two times daily. 180 Each 3 4 Active albuterol HFA (ProAir HFA) 90 mcg/actuation inhalerIndications :Mild intermittent asthma without complication (HC) Inhale 1-2 Puffs by mouth every 4 hours if needed for Shortness of Breath 1st choice or Wheezing 1st choice. 2 Each 3 4 Active cyclobenzaprine (FLEXERIL) 5 mg tabletIndications: Neck pain,Frequent headaches Take 1 Tablet (5 mg) by mouth at bedtime if needed for Muscle Spasm. 30 Tablet 5 Active citalopram (CELEXA) 20 mg tabletIndications: Fatigue, unspecified type,Anxiety Take 1 Tablet (20 mg) by mouth once daily. 90 Tablet 1 5 Active amLODIPine (NORVASC) 2.5 mg tabletIndications: Primary Raynaud's phenomenon Take 1 Tablet (2.5 mg) by mouth once daily. 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 08/2021 HSIL. 09/2021 Crosby, JOEL 2-3 11/2021 LEEP, JOEL 1 12/2022 [...] present) No problems associated with this episode. Joanne Wheeler RNC.....01/26/2017 12:17 PM Preeclampsia, severe 022 Encounters Date Type Department Care Team Description 08/10/2024 3:00 PM CDT Office Visit [facility] [address] [place] [phone] Shantel Stanley MD Post-op (DOS:07/05/2024/Proce dure: Exam Under Anesthesia, Lysis of Adhesions, Robotic Assited total Laparoscopic Hysterectomy/Bilater al Salpingectomies/Cyst oscopy) 08/10/2024 Travel 07/20/2024 3:20 PM CDT Office Visit [facility] [address] [place] [phone] Shantel Stanley MD Post-op (DOS:07/05/2024/Proce dure: Exam Under Anesthesia, Lysis of Adhesions, Robotic Assited total Laparoscopic Hysterectomy/Bilater al Salpingectomies/Cyst oscopy) 07/19/2024 Travel 07/07/2024 11:40 AM CDT Office Visit [facility] [address] [place] [phone] Shantel Stanley MD Post-op (Incision concerns/Possible hematoma/DOS:07/06/19/Hysterectomy) 07/07/2024 Travel 07/05/2024 8:55 PM CDT - 07/05/2024 9:57 PM CDT Emergency [facility] [address] [place] [address] Dary Guzman MD Incisional pain (Primary Dx) Discharge Disposition: Home Self Care 07/05/2024 10:51 AM CDT Anesthesia Event [address] [address] Shraddha Ji MD Koenig, Julianne Rodney MD 07/05/2024 9:58 AM CDT - 07/05/2024 12:53 PM CDT Surgery [address] [address] Shantel Stanley MD Exam Under Anesthesia, Lysis of Adhesions, Robotic Assited total Laparoscopic Hysterectomy/Bilater al Salpingectomies/Cyst oscopy 07/05/2024 8:42 AM CDT - 07/05/2024 4:48 PM CDT Hospital Encounter [address] [address] Shantel Stanley MD Chronic pelvic pain in female (Primary Dx); Pelvic congestion syndrome; Endometriosis; S/P laparoscopic hysterectomy Discharge Disposition: Home Self Care 07/05/2024 Travel 07/05/2024 Nurse Triage [facility] [address] [place] [address] Mame Barroso MD Post-op Pain/problem 07/04/2024 Travel 06/22/2024 2:25 PM CDT Office Visit [facility] [address] [place] [address] Mame Barroso MD Pre-Op Exam (07/12/2024, Hysterectomy, Lizeth Mitchell) 06/22/2024 Travel 06/19/2024 Telephone [facility] [address] [facility] [address] [place] [phone] Shantel Stanley MD Form 06/18/2024 Travel 06/13/2024 3:00 PM CDT Office Visit [facility] [address] [place] [phone] Shantel Stanley MD Consult (pelvic congestion/uls:2024); Nurse/Clinic Staff Only (Pt states that she has had increased back pain the PCP thought might be due to pelvic issues) 06/13/2024 Travel from Last 3 Months Immunizations Immunization Administration Dates Next Due COVID-19 vaccine (Moderna [...] or isolated from those around you? 0 05/19/2024 Financial Resource Strain Answer Date R ecorded Difficulty of Paying Living Expenses 3 05/19/2024 Difficulty of Paying Living Expenses Not on file 05/19/2024 Food Insecurity Answer Date Recorded Do you worry your food will run out before you are able to buy more? 1 05/19/2024 Transportation Needs Answer Date Record ed Does lack of transportation keep you from medica l appointments? 1 05/19/2024 Does lack of transportation keep you from work, meetings or getting things that you need? 1 05/19/2024 Housing Stability Answer Date Recorded What is your housing situation today? 1 05/19/2024 Utilities Answer Date Recorded Do you have trouble paying f or utilities (for example, heat, electricity, water, phone)? 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 Not on file No [...] Sign Reading Time Taken Comments Blood Pressure 102/70 08/10/2024 3:01 PM CDT Pulse 59 07/05/2024 8:55 PM CDT Temperature 36.4 C (97.6 F) 07/05/2024 8:55 PM CDT Respiratory Rate 15 07/05/2024 8:55 PM CDT Oxygen Saturation 100% 07/05/2024 8:55 PM CDT Inhaled Oxygen Concentration - - Weight 43.1 kg (95 lb) 08/10/2024 3:01 PM CDT Height 154.9 cm (5' 1) 07/05/2024 8:55 PM CDT Body Mass Index 17.95 07/05/2024 8:55 PM CDT Plan of Treatment Health Maintenance Due Date Last Done Comments Hepatitis B series for 19+ (1 of 3 - 19+ 3-dose series) 2012 COVID-19 vaccine series ( season) 2023 04/16/2020, 03/19/2020 Depression screening for age 12+ 06/22/2024 06/23/2023, 05/26/2023, 12/24/2022, Additional history exists Influenza Vaccine (Season Ended) 2024 12/17/2022, 12/21/2018, 02/17/2017, Additional history exists Pap test for age 21-65 12/01/2024 , 12/24/2022, 12/24/2022, Additional history exists BMI (ht and wt on same day) for age 18+ 06/22/2025 06/22/2024, 04/28/2023, 12/24/2022, Additional history exists Tetanus booster 02/24/2029 02/24/2019, 07/2017, 08/26/2005 HIV for age 15-65 Completed 10/14/2018 Tdap Completed 02/24/2019, 07/2017, 08/26/2005 Hepatitis C screening for age 18-79 Completed 12/24/2022 Pneumococcal series for age 6-49 Aged Out No longer eligible based on patient's age to complete this topic Procedures Procedure Name Priority Date/Time Associated Diagnosis Comments ENDOTRACHEAL TUBE Routine 07/05/2024 12:06 PM CDT ENDOTRACHEAL TUBE Routine 07/05/2024 12:06 PM CDT PATH TISSUE EXAM Today 07/05/2024 12:06 PM CDT ROBOTIC ASSISTED LAPAROSCOPIC HYSTERECTOMY XI Tier 2 07/05/2024 10:31 AM CDT Chronic pelvic pain in female Pelvic congestion syndrome Case Notes AVERAGE TFROBOT Special Needs HT 5'3 WT 45.8 kg BMI 17.89 TYPE & SCREEN Preop 07/05/2024 9:05 AM CDT CREATININE Preop 07/05/2024 9:05 AM CDT CBC W PLT NO DIFF Preop 07/05/2024 9:0 5 AM CDT URINE POCT Preop 07/05/2024 9:00 AM CDT SCAN-CARDIAC STRIP 07/05/2024 12:00 AM CDT CBC WITH AUTO DIFFERENTIAL Routine 06/22/2024 2:59 PM CDT Pre-op exam URINE POCT Routine 06/22/2024 2:58 PM CDT Pre-op exam OFFICE MACHINE SERVICE SUPERVISOR THIN PREP PAP AND HPV DNA - AGE 25 AND OVER ([facility]) Routine 12/02/2023 2:50 PM CDT JOEL III (cervical intraepithelial neoplasia grade III) with severe dysplasia ANTI HCV Routine 12/24/2022 10:13 AM CDT Need for hepatitis C screening test ANTI HIV 1/2 Routine 10/14/2018 4:30 PM CDT Encounter for supervision of other normal in first trimester (HC) from Last 3 Months or Most Recently Relevant to Health Maintenance Results * HCHG TUBE PR1, HCHG MOUTHPIECE PR1 (07/05/2024 12:06 PM CDT) Narrative Rossy Donovan CRNA - 07/05/2024 12:06 PM CDT Rossy Donovan CRNA 07/05/2024 12:06 PM Procedure: ETT Patient location during procedure: OR ETT Properties Mask Ventilation: easy Type: straight Location: oral Cuffed: yes Tube Size: 7.0 mm Laryngoscope Blade: Joiner Blade Size: 2 Cormack-Lehane Grade View: 1 Insertion Attempts: 1 Placement Verification: auscultation, end tidal CO2 and symmetrical chest wall movement Assessment: pharynx clear, atraumatic and dentition unchanged Secured at: 22 Measured From: lips Tooth guard used and removed: yes Difficulty: 0 (not difficult) Shraddha Ji MD ANESTHESIA PX NOTE ORDERABL ES Final Result * PATH TISSUE EXAM (07/05/2024 12:06 PM CDT) Case Report Pathology Report Case: [id number] Authorizing Provider: Lizeth Shantel Collected: 07/05/2024 1206 MD Moira Ordering Location: [facility] Received: 07/05/2024 1348 Pathologist: Slim Pride MD Specimen: Uterus,cervix,rayshawn ateral fallopian tubes (no ovaries) 07/07/2024 5:01 PM CDT [facility] Final Diagnosis A) UTERUS WITH CERVIX AND FALLOPIAN TUBES, TOTAL HYSTERECTOMY WITH BILATERAL SALPINGECTOMY: 1. Cervix: No significant histologic abnormality 2. Endometrium: Proliferative phase 3. Myometrium: No significant histologic abnormality 4. Uterine serosa: No significant histologic abnormality 5. Right fallopian tube: No significant histologic abnormality 6. Left fallopian tube: No significant histologic abnormality 7. Uterine weight: 73 grams 8. Negative for malignancy 07/07/2024 5:01 PM CDT [facility] at 1701 CDT Clinical Information Chronic pelvic pain/pelvic congestion syndrome 07/07/2024 5:01 PM CDT [facility] Gross Description A) Received fresh labeled with the patient's name and uterus, cervix, bilateral fallopian tubes, no ovaries, is a 73 g (trimmed), 8.5 x 4.0 x 4.0 cm uterus with attached cervix and bilateral fallopian tubes. The ectocervix is 3.5 cm in diameter. There is a focal ectocervical roughened surrounding the cervical os. The cervical os is 1.0 cm and patent. The cervical canal is patent and unremarkable. The cervical stroma is rubbery with no lesion. The squamocolumnar junction is distinct. The paracervical soft tissue margin is inked green. The endometrium is hemorrhagic and averaging 0.4 cm thick. No polyp or mass is identified. No intramural nodule is identified. The myometrium is bowman-brown trabeculated and averaging 1.3 cm thick. The uterine serosa is smooth. The right fimbriated fallopian tube is 6.0 x 0.7 x 0.7 cm with smooth serosa. Cross-sections show stellate, unremarkable lumen. The left fimbriated fallopian tube is previously ligated measuring 4.5 x 0.5 x 0.5 cm. The serosa is smooth. Cross-section shows stellate, unremarkable lumen. Director Of Counseling sections are submitted: 1-2. Cervix, 12-3 o'clock 3-4. Cervix 3-6 o'clock 5-6. Cervix, 6-9 o'clock 7-8. Cervix, 9-12 o'clock 9. Anterior full-thickness endomyometrium 10. Posterior full-thickness endomyometrium 11. Right fallopian tube and entire fimbria (inked blue) 12. Left fallopian tube and entire fimbria TTP 07/05/2024 07/07/2024 5:01 PM CDT [facility] Microscopic Description The final diagnosis is based on microscopic examination of appropriate sections of all specimens. 07/07/2024 5:01 PM CDT [facility] Additional Information Interpreted at [facility], Central Laboratory - [address] [facility] [address], [place] [address] 07/07/2024 5:01 PM CDT [facility]AL LAB[facility] Tissue (Uterus,cervix,bi lateral fallopian tubes (no ovaries)) 07/05/2024 12:06 PM CDT 07/05/2024 1:48 PM CDT Shantel Stanley MD PATHOLOGY/CYTOLO GY Final Result [facility] [address] [place] [address], [facility] SENDOUT INTERNAL ZIP [phone] [place] [address] * Type & Screen (07/05/2024 9:05 AM CDT) ABORH B Rh Positive 07/05/2024 9:59 AM CDT [facility] BLOOD BANK ANTIBODY SCREEN Negative Negative 07/05/2024 9:59 AM CDT [facility] BLOOD BANK SPECIMEN EXPIRATION DATE/TIME 07/08/24 23:59 07/05/2024 9:59 AM CDT [facility] BLOOD BANK Blood BLOOD SPECIMEN / Unknown Line/Port / Unknown 07/05/2024 9:05 AM CDT 07/05/2024 9:18 AM CDT us Shantel Stanley MD BLOOD BANK Final Result Performing Organization Address [facility]/State/[place] Co de Phone Number [facility] BLOOD BANK [address] [place] [address] * (ABNORMAL) CBC W PLT NO DIFF (07/05/2024 9:05 AM CDT) WHITE BLOOD COUNT 4.0(L) 4.5 - 11.0 thou/cu mm 07/05/2024 9:20 AM CDT [facility] RED BLOOD COUNT 5.11 4.00 - 5.20 mil/cu mm 07/05/2024 9:20 AM CDT [facility] HEMOGLOBIN 16.9(H) 12.0 - 16.0 g/dL 07/05/2024 9:20 AM CDT [facility] HEMATOCRIT 48.2 33.0 - 51.0 % 07/05/2024 9:20 AM CDT [facility] MCV 94 80 - 100 fL 07/05/2024 9:20 AM CDT [facility] MCH 33.1 26.0 - 34.0 pg 07/05/2024 9:20 AM CDT [facility] MCHC 35.1 32.0 - 36.0 g/dL 07/05/2024 9:20 AM CDT [facility] RDW 11.6 11.5 - 15.5 % 07/05/2024 9:20 AM CDT [facility] PLATELET COUNT 238 140 - 440 thou/cu mm 07/05/2024 9:20 AM CDT [facility] MPV 10.6 6.5 - 11.0 fL 07/05/2024 9:20 AM CDT [facility] NRBC 0.0 % 07/05/2024 9:20 AM CDT [facility] ABS NRBC 0.0 thou /cu mm 07/05/2024 9:20 AM CDT [facility] Blood BLOOD SPECIMEN / Unknown Line/Port / Unknown 07/05/2024 9:05 AM CDT 07/05/2024 9:18 AM CDT us Shantel Stanley MD HEMATOLOGY Final Result Performing Organization Address City/[facility]/ZIP Co de Phone Number [facility] SENDOUT [place] ZIP [phone] [place] [address] * (ABNORMAL) CREATININE (07/05/2024 9:05 AM CDT) eGFR 76(L) >90 mL/min/1.7 3m2 07/05/2024 9:43 AM CDT [facility] Comment:As of 2021, eG FR is calculated by the CKD-EPI creatinine equation without race adjustment. eGFR can be influenced by muscle mass, exercise, and diet. The reported eGFR is an estimation only and is only applicable if the renal function is stable. CREATININE 1.01(H) 0.50 - 0.90 mg/dL 07/05/2024 9:43 AM CDT [facility] Blood BLOOD SPECIMEN / Unknown Line/Port / Unknown 07/05/2024 9:05 AM CDT 07/05/2024 9:18 AM CDT us Shantel Stanley MD CHEMISTRY Final Result Performing Organization Address [facility]/[place] Co de Phone Number [facility] SENDOUT INTERNAL ZIP [address] [place] [id number] * POC Urine - [facility] Only (07/05/2024 9:00 AM CDT) Only the most recent of2 resultswithin the time period is included. Pathologist [facility] ,URIN E Negative Negative 07/05/2024 1:19 PM CDT [facility] Urine URINE SPECIMEN / Unknown Non-Blood / Unknown 07/05/2024 9:00 AM CDT 07/05/2024 1:09 PM CDT us Shraddha iJ MD URINE Final Resul t Performing Organization Address [facility]/ZIP Co de Phone Number [facility] SENDOUT [place] [address]IP [phone] [place] [address] * SCAN-CARDIAC STRIP (07/05/2024 12:00 AM CDT) Narrative 07/05/2024 12:00 AM CDT Ordered by an unspecified provider. us Other Clinical Staff OTHER Final Resul t * (ABNORMAL) CBC AND DIFFERENTIAL (06/22/2024 2:59 PM CDT) Pathologist [facility] WHITE BLOOD CELL COUNT 4.7 3.8 - 10.8 Thousand/u L [facility] RED BLOOD CELL COUNT 4.17 3.80 - 5.10 Million/uL [facility] HEMOGLOBIN 13.9 11.7 - 15.5 g/dL [facility] HEMATOCRIT 40.6 35.0 - 45.0 % [facility] MCV 97.4 80.0 - 100.0 fL [facility] MCH 33.3(H) 27.0 - 33.0 pg [facility] MCHC 34.2 32.0 - 36.0 g/dL [facility] Comment: For adults, a slight decrease in the calculated MCHC value (in the range of 30 to 32 g/dL) is most likely not clinically significant; however, it should be interpreted with caution in correlation with other red cell parameters and the patient's clinical condition. RDW 12.1 11.0 - 15.0 % [facility] PLATELET COUNT 232 140 - 400 Thousand/u L [facility] MPV 11.3 7.5 - 12.5 fL [facility] ABSOLUTE NEUTROPHILS 2,472 1,500 - 7,800 cells/uL [facility] ABSOLUTE LYMPHOCYTES 1,734 850 - 3,900 cells/uL [facility] ABSOLUTE MONOCYTES 437 200 - 950 cells/uL [facility] ABSOLUTE EOSINOPHILS 28 15 - 500 cells/uL [facility] ABSOLUTE BASOPHILS 28 0 - 200 cells/uL [facility] NEUTROPHILS 52.6 % [facility] LYMPHOCYTES 36.9 % [facility] MONOCYTES 9.3 % [facility] EOSINOPHILS 0.6 % [facility] BASOPHILS 0.6 % [facility] Blood BLOOD SPECIMEN / Unknown 06/22/2024 2:59 PM CDT 06/22/2024 3:00 PM CDT us Mame Barroso MD HEMATOLOGY Final Resul t [facility] [address] [place] [address], [facility] [address] [place] [address] * OFFICE MACHINE SERVICE SUPERVISOR THIN PREP PAP AND HPV DNA - AGE 25 AND OVER ([employer]) (12/02/2023 2:50 PM CDT) CLINICAL INFORMATION [facility] Comment:Normal exam LMP [facility] Comment:10/23/23 PREV. PAP [facility] Comment:12/24/22 NIL PREV. BX [facility] Comment:N/A SOURCE OFFICE MACHINE SERVICE SUPERVISOR [facility] Comment:Cervix STATEMENT OF ADEQUACY [facility] Comment: Satisfactory for evaluation. Endocervical/transformation zone component present. INTERPRETATION/RESU LT [facility] Comment: Cytology Results: Negative for intraepithelial lesion or malignancy. COMMENT [facility] Comment: This Pap test has been evaluated with computer assisted technology. CROSS CUT SAW OPERATOR [facility] Comment: AUC, CT(ASCP) CT Screening location: [address] [address] THINPREP TIS PAP ALWAYS MESSAGE [facility] Comment: EXPLANATORY NOTE: The Pap is a [...] HPV HIGH RISK Not Detected NOT DETECTED [facility] Comment: Not Detected High Risk HPV types (16,18,31,33,35,39,45,51,52, 56,58,59,66,68) were not detected. Other HPV types which cause anogenital lesions may be present. The significance of the other types of HPV in malignant processes has not been established. Methodology: Real Time PCR Other (Other) 12/02/2023 2:5 0 PM CDT 12/03/2023 7:48 AM CDT Mame Barroso MD PATHOLOGY/CYTOLOGY Final Re sult Performing Organization Address City/[facility]/ZIP Co de Phone Number [facility] [address] [place] [address], [facility] [address] [place] [address] * ANTI HCV (12/24/2022 10:13 AM CDT) HEPATITIS C ANTIBODY Non-Reacti ve Non-React miller 12/24/2022 5:43 PM CDT [facility] Comment:Please note, per www .CDC.gov: [...] 10:13 AM CDT 12/24/2022 10:13 AM CDT Mame Barroso MD SEND OUTS Final Resul t [facility] [address] [place] [address], * ANTI HIV 1/2 (10/14/2018 4:30 PM CDT) HIV-1/HIV-2 ANTIBODY Non-Reacti ve Non-Reacti ve 10/15/2018 4:42 PM CDT [facility] Comment:HIV-1 p24 and HIV-1/ HIV-2 Ab not detected. Blood BLOOD SPECIMEN / Unknown Venipuncture / Unknown 10/14/2018 4:30 PM CDT 10/14/2018 4:34 PM CDT us Mame Barroso MD SEND OUTS Final Resul t [facility] [address] [place] [address], [place] from Last 3 Months or Most Recently Relevant to Health Maintenance Insurance [employer] Advance Directives * Full Code (Latest Code Status on File) Date Activated Date Inactivated Comments 07/05/2024 8:47 AM 07/05/2024 6:54 PM Question Answer Comments Code Status Discussion: Reviewed Preferences * Full Code Date Activated Date Inactivated Comments 12/05/2021 8:34 AM 12/05/2021 1:29 PM Question Answer Comments Code Status Discussion: Reviewed Preferences Care Teams Web Application Tester Relationship Specialty Start Date End Date Mame Barroso MD [address] [place] [address] PCP - General Family Practice 01/12/18
[2024-09-10 17:58] LABS: Basophils Percent Auto 0.1 % (0.0-3.0); Hematocrit 43.6 % (33.0-51.0); Hemoglobin* 14.8 gm/dL (12.0-16.0); Immature Granulocytes Pct Auto 0.2 %; Lymphocytes Percent Auto 10.5 % (20-44); Mean Corpuscular HGB Conc 34 gm/dL (32-36); Mean Corpuscular Hemoglobin 33 pg (26-34); Mean Corpuscular Volume 96 fL (80-100); Monocytes Percent Auto 4.7 % (0.0-11.0); Neutrophils Percent Auto 84.5 % (42.0-72.0); Platelet Count* 209 K/uL (140-440); RDW Coefficient of Variation % 12.1 % (11.5-15.5); Red Blood Count 4.54 m/uL (4.00-5.20); White Blood Count* 12.61 K/uL (4.50-11.00)
--- NOTE | 2024-09-10 18:05 | ED.GENADULT ---
HPI - General Adult General Chief complaint: Abdominal Pain Stated complaint: Stomach pain Time Seen by Provider: 09/10/24 17:21 Source: patient Mode of arrival: ambulatory Limitations: no limitations History of Present Illness HPI narrative: 29-year-old female, 2 months postop hysterectomy, presents today with diffuse abdominal pain that started this morning. She has felt nauseated and has dry heaved multiple times. No fevers or chills. No shortness of breath or chest pain. No difficulty with urination including increased frequency or urgency. No diarrhea or constipation. Last bowel movement was last evening around 9:30 p.m. was normal. Movement makes the pain worse, nothing makes it better. Patient also states that she is sexually active, had some postcoital bleeding yesterday for the 1st time. Related Data Home Medications ?Medication ?Instructions ?Recorded ?Confirmed albuterol 90 mcg/actuation aerosol 90 mcg inhalation DAILY 05/24/22 04/19/24 inhaler albuterol sulfate 2.5 mg/3 mL 2.5 mg inhalation Q6H PRN 05/24/22 04/19/24 (0.083 %) solution for nebulization citalopram 10 mg tablet 10 mg PO QDAY 05/24/22 04/19/24 dextroamphetamine-amphetamine 5 mg 5 mg PO QDAY PRN 05/24/22 04/19/24 tablet (Adderall) dextroamphetamine-amphetamine ER 25 mg PO QAM 05/24/22 04/19/24 25 mg 24hr capsule,extend release (Adderall XR) cyclobenzaprine 5 mg tablet 5 mg PO QPM PRN 09/10/24 09/10/24 Allergies Allergy/AdvReac Type Severity Reaction Status Date / Time No Known Allergies Allergy Verified 04/19/24 20:18 Review of Systems Status of ROS: Reports: 10 or more systems reviewed and unremarkable except as noted in History and below [facility] Medical History ADHD (attention deficit hyperactivity disorder) ?F90.9 - Attention-deficit hyperactivity disorder, unspecified type (ICD-10) Surgical History Status post repeat low transverse section ?Z98.891 - History of uterine scar from previous surgery (ICD-10) Status post primary low transverse section ?Z98.891 - History of uterine scar from previous surgery (ICD-10) Social History Smoking Status: Never smoker Do you use any of these nicotine containing products: None Second hand tobacco smoke exposure: No How often do you have a drink containing alcohol: 2-4 times a month How often do you have six or more drinks on one occasion: Never AUDIT-C Alcohol total score: 2 Non-prescribed substance use: denies use service: No Exam Narrative: Exam Narrative: Thin, well-developed patient in no acute distress. Alert and oriented. Answers questions appropriately. Affect is flat. Thoughts are goal oriented and rational. No tangential or magical thinking noted. Patient speaks in full sentences without needing to catch her breath. HEENT: Normocephalic atraumatic. Pupils are equally round reactive to light. Extraocular muscles are intact. Conjunctivae are moist without any icterus noted. Moist mucous membranes. Cardiovascular: Heart is regular rate and rhythm S1 and S2 are present without any murmurs. Lungs: Clear to auscultation bilaterally no wheezes rhonchi or rales are appreciated. Patient takes deep breaths without any discomfort. Abdomen: Soft and nondistended with normal bowel sounds. Patient has diffuse tenderness, the worst of it appears to be suprapubic. Extremities: Bilateral lower extremities are without edema. Skin: Well perfused without any obvious rashes. : Normal external female genitalia. Vaginal wall is pink and moist. Posterior vaginal canal appears to be healed appropriately, I do not see any active bleeding. No trauma visualized. Const: Vital Signs, click to edit/add: Vital Signs - 24 hr 09/10/24 15:49 Temperature 98.0 F Pulse Rate [Right Pulse Oximeter] 97 Respiratory Rate 18 Blood Pressure [Ri ght Upper Arm] 118/77 Pulse Oximetry 99 Oxygen Delivery Me thod Room Air Course Course ED Course: Differential includes pancreatitis, appendicitis, colitis, postop complication. Less likely would be a pyelonephritis given the location of her pain. We discussed the possibility of ovarian cysts. IV established. Patient given Tylenol for pain. CBC shows a slightly elevated white cell count 12.6. CRP minimally elevated. Remainder of lab work is unremarkable. UA does show 1+ blood but 0-2 RBCs, trace leukocyte esterase. Vital Signs Vital signs: Initial Vital Signs Temperature 98.0 F 09/10/24 15:49 Temperature Source Temporal Artery Scan 09/10/24 15:49 Pulse Rate 97 09/10/24 15:49 Respiratory Rate 18 09/10/24 15:49 Blood Pressure 118/77 09/10/24 15:49 Blood Pressure Mean 90 09/10/24 15:49 Blood Pressure Position Sitting 09/10/24 15:49 Pulse Oximetry 99 09/10/24 15:49 Oxygen Delivery Method Room Air 09/10/24 15:49 Vital Signs Temperature 98.0 F 09/10/24 15:49 Pulse Rate 97 09/10/24 15:49 Respiratory Rate 18 09/10/24 15:49 Blood Pressure 118/77 09/10/24 15:49 Pulse Oximetry 99 09/10/24 15:49 Oxygen Delivery Method Room Air 09/10/24 15:49 Temperature 98.0 F 09/10/24 15:49 Pulse Rate 97 09/10/24 15:49 Respiratory Rate 18 09/10/24 15:49 Blood Pressure 118/77 09/10/24 15:49 Pulse Oximetry 99 09/10/24 15:49 Oxygen Delivery Method Room Air 09/10/24 15:49 Medications Administered Medications: Discontinued Medications Generic Name Dose Route Start Last Admin Trade Name Wilber PRN Reason Stop Dose Admin Acetaminophen 1,000 mg 09/10/24 18:03 09/10/24 18:19 Acetaminophen 500 Mg Tablet PO 09/10/24 18:04 1,000 mg ONCE ONE Administration Medical Decision Making [facility] Narrative Medical decision making narrative: 29-year-old female presenting today with diffuse abdominal pain, unclear etiology. Discussed differential diagnoses with the patient. Discussed that since her pain just started today could be that there is something starting that we are not seeing on lab or imaging yet. Patient will have a low threshold to return to the ED. in the meantime, patient will be sent home with Toradol to use as needed. Work note was written for the following day. Urine cultures pending. I would treat with antibiotics should urine cultures come back positive. Lab Data Lab results reviewed: Yes I reviewed the patient's lab results Labs: Lab Results 09/10/24 09/10/24 Range/Units 15:53 17:50 WBC 12.61 H (4.50-11.00) K/uL RBC 4.54 (4.00-5.20) m/uL Hgb 14.8 (12.0-16.0) gm/dL Hct 43.6 (33.0-51.0) % MCV 96 (80-100) fL MCH 33 (26-34) pg MCHC 34 (32-36) gm/dL RDW Coeff of Radha 12.1 (11.5-15.5) % Plt Count 209 (140-440) K/uL Neut % (Auto) 84.5 H (42.0-72.0) % Lymph % (Auto) 10.5 L (20-44) % [place] % (Auto) 4.7 (0.0-11.0) % Eos % (Auto) 0.0 (0.0-7.0) % Baso % (Auto) 0.1 (0.0-3.0) % Neut # (Auto) 10.70 H (1.7-7.0) K/uL Lymph # (Auto) 1.30 (0.90-2.90) K/uL [place] # (Auto) 0.60 (0.00-0.90) K/UL Eos # (Auto) 0.00 (0.00-0.50) K/uL Baso # (Auto) 0.00 (0.00-0.30) K/uL Abs Immat Gran (auto) 0.00 (0.00-0.30) K/uL Imm/Tot Granulo (auto) 0.2 % Sodium 135 (135-149) mmol/L Potassium 3.6 (3.6-5.1) mmol/L Chloride 100 (96-114) mmol/L Carbon Dioxide 27 (20-32) mmol/L Anion Gap 8 (7-15) mEq/L BUN 9 (5-24) mg/dL Creatinine 0.8 (0.5-1.5) mg/dL Estimated Creat Clear 70.63 Estimated GFR 101 ml/min Glucose 106 (60-115) mg/dL Lactate 1.0 (0.5-1.9) mmol/L Calcium 9.2 (8.4-10.6) mg/dL Total Bilirubin 1.0 (0.1-1.5) mg/dL Direct Bilirubin 0.0 (0.0-0.5) mg/dL AST 23 (12-35) U/L ALT 18 (4-35) U/L Alkaline Phosphatase 71 (40-150) U/L C-Reactive Protein 3.6 H (0.5-1.0) mg/dL Total Protein 7.0 (6.0-8.3) g/dL Albumin 4.2 (3.3-5.0) g/dL Lipase 38 (23-300) U/L Urine Color Yellow (Yellow) Urine Appearance Clear (Clear) Urine pH 7.0 (5.0-8.5) Ur Specific [place] 1.010 (1.000-1.030) Urine Protein Negative (Negative) Urine Glucose (UA) Negative (Negative) Urine Ketones Negative (Negative) Urine Blood 1+ A (Negative) Urine Nitrite Negative (Negative) Urine Bilirubin Negative (Negative) Urine Urobilinogen 0.2 (0.2-1.0) Ur Leukocyte Esterase Trace A (Negative) Urine RBC 0-2 (0-2) Urine WBC 2-5 (0-5) Ur Squamous Epith Cells Few (None-Few) Urine Bacteria Few A (None) Imaging Data CT scan - abdomen: Attestation: I have reviewed the pertinent imaging results. Radiologist's impression: TECHNIQUE: CT abdomen and pelvis acquired with 50 cc Isovue 370 IV contrast. COMPARISON: None. FINDINGS: Lower chest: Lung bases are clear. ABDOMEN: Liver: Normal enhancement. Subcentimeter hypodensities are too small to characterize however statistically represent cysts. Gallbladder and biliary: Normal gallbladder without radiopaque stone. Normal caliber bile ducts. Spleen: Normal size and enhancement. Pancreas: Normal enhancement without peripancreatic inflammatory changes or ductal dilatation. Adrenal glands: Normal adrenal glands. Kidneys and ureters: Normal enhancement. No radio-opaque calculi. No hydroureteronephrosis. GI tract: The stomach is relatively decompressed. Normal caliber small and large bowel loops. Normal appendix. Vascular structures: Normal caliber abdominal aorta. Lymph nodes: No lymphadenopathy in the abdomen or pelvis by size criteria. Peritoneum: No free air. PELVIS: Genitourinary system: Urinary bladder is decompressed. Hysterectomy SKELETAL STRUCTURES AND SOFT TISSUES: No suspicious lytic or blastic lesions. IMPRESSION: No discrete acute process in the abdomen or pelvis. No obstruction. No hydroureteronephrosis. Normal appendix. Discharge Plan Discharge Clinical Impression: Abdominal pain Patient Disposition: Home, Self-Care Condition: Stable Additional Instructions: No life-threatening abnormalities noted inside the abdomen that could be causing your pain. Would recommend you follow-up with your primary care provider or director of distribution if you continue to have vaginal bleeding. Return to the emergency department if your pain becomes worse, you develop a fever or you can keep down any food. Prescriptions: No Action dextroamphetamine-amphetamine [Adderall XR] 25 mg capsule,extended release 24hr 25 mg PO QAM dextroamphetamine-amphetamine [Adderall] 5 mg tablet 5 mg PO QDAY PRN citalopram 10 mg tablet 10 mg PO QDAY albuterol sulfate 2.5 mg /3 mL (0.083 %) solution for nebulization 2.5 mg inhalation Q6H PRN albuterol 90 mcg/actuation aerosol 90 mcg inhalation DAILY cyclobenzaprine 5 mg tablet 5 mg PO QPM PRN Follow Up/Referrals: Mame Barroso MD [Primary Care Provider, Family Practice] Stand Alone Forms: [employer] Info Instructions
[2024-09-10 18:09] LABS: Slide Review Reflex No
[2024-09-10 18:16] LABS: Albumin* 4.2 g/dL (3.3-5.0); Chloride* 100 mmol/L (96-114)
[2024-09-10 18:17] LABS: Potassium* 3.6 mmol/L (3.6-5.1); Sodium* 135 mmol/L (135-149)
[2024-09-10 18:19] LABS: Blood Urea Nitrogen* 9 mg/dL (5-24); Creatinine* 0.8 mg/dL (0.5-1.5); Est. Creatinine Clearance* 70.63; Estimated Glomerular Filt Rate 101 ml/min
[2024-09-10] MEDS: ACETAMINOPHEN 500 MG TABLET 1000 MG PO (18:19)
[2024-09-10 18:20] LABS: Alanine Aminotransferase* 18 U/L (4-35); Alkaline Phosphatase* 71 U/L (40-150); Anion Gap 8 mEq/L (7-15); Aspartate Amino Transferase* 23 U/L (12-35); Calcium* 9.2 mg/dL (8.4-10.6); Carbon Dioxide* 27 mmol/L (20-32); Glucose* 106 mg/dL (60-115); Lipase* 38 U/L (23-300)
[2024-09-10 18:22] LABS: C Reactive Protein* 3.6 mg/dL (0.5-1.0)
[2024-09-10 18:30] VITALS: BP 114/90; RESP 16; O2SAT 100
--- NOTE | 2024-09-11 14:01 | ED.NURSE ---
Pt had called asking about rx for Toradol that was not sent to [facility]. Reviewed provider note with MD Cee, then called in rx for Toradal 10mg PO TID PRN to [facility]. Called and updated pt [facility]
== END 2024-09-10 18:57 | disposition home or self-care (01) ==
PROVIDERS: Emergency Provider Family Medicine; PCP Family Medicine
DX: R10.9 Unspecified abdominal pain (principal)
CPT/HCPCS: 36415; 74177; 80048; 80076; 81001; 83605; 83690; 85025; 86140; 87086; 99284; A9270; Q9967

== ENCOUNTER 2024-10-16 10:19 | Emergency (ER) | payer OTHER, SELFPAY ==
--- OUTSIDE RECORDS SUMMARY | 2024-10-16 10:22 | XMS_ITS | Clinical Summary ---
Author Organization [employer] Address Counts include 234 beds at the [facility] [place] [address] Care Team Providers Care Media Producer Name Role Phone Mame Barroso MD Primary Care Provider Allergies No known active allergies Medications fluticasone propion-salmetero L (Advair Diskus) 250-50 mcg/Dose diskus inhalerIndication s:Mild intermittent asthma without complication (HC) Inhale 1 Puff by mouth two times daily. 180 Each 3 4 Active albuterol HFA (ProAir HFA) 90 mcg/actuation inhalerIndication s:Mild intermittent asthma without complication (HC) Inhale 1-2 Puffs by mouth every 4 hours if needed for Shortness of Breath 1st choice or Wheezing 1st choice. 2 Each 3 4 Active cyclobenzaprine (FLEXERIL) 5 mg tabletIndications :Neck pain,Frequent headaches Take 1 Tablet (5 mg) by mouth at bedtime if needed for Muscle Spasm. 30 Tablet 5 Active citalopram (CELEXA) 20 mg tabletIndications :Fatigue, unspecified type,Anxiety Take 1 Tablet (20 mg) by mouth once daily. 90 Tablet 1 5 Active amLODIPine (NORVASC) 2.5 mg tabletIndications :Primary Raynaud's phenomenon Take 1 Tablet (2.5 mg) by mouth once daily. 90 Tablet 3 5 Active dextroamphetamine -amphetamine (AdderalL) 10 mg tabletIndications :Attention deficit hyperactivity disorder (ADHD), unspecified ADHD type 10 mg daily in afternoon as needed for long work days 30 Tablet 5 Active dextroamphetamine -amphetamine 25 mg Extended-Release capsule 5 Active aluminum-magnesiu m hydroxide-simethi cone 200-200-20 mg/5 mL suspensionIndicat ions:Abdominal pain, unspecified abdominal location Take 15-30 mL by mouth 4 times daily if needed for GI Upset or Heartburn. Shake Well. 355 mL 5 Active metroNIDAZOLE (FLAGYL) 500 mg tabletIndications :BV (bacterial vaginosis) Take 1 Tablet (500 mg) by mouth two times daily for 7 days. 14 Tablet 5 10/19/19 25 Active dextroamphetamine -amphetamine (AdderalL) 10 mg tabletIndications :Attention deficit hyperactivity disorder (ADHD), unspecified ADHD type Take 1 Tablet (10 mg) by mouth once daily. Daily in afternoon for work as needed 30 Tablet 5 11/12/19 25 Active dextroamphetamine -amphetamine (AdderalL) 10 mg tabletIndications :Attention deficit hyperactivity disorder (ADHD), unspecified ADHD type Take 1 Tablet (10 mg) by mouth once daily. Daily in afternoon for work as needed 30 Tablet 5 12/12/19 25 Active dextroamphetamine -amphetamine (AdderalL) 10 mg tabletIndications :Attention deficit hyperactivity disorder (ADHD), unspecified ADHD type Take 1 Tablet (10 mg) by mouth once daily. Daily in afternoon for work as needed 30 Tablet 5 Active dextroamphetamine -amphetamine (Adderall XR) 25 mg Extended-Release capsuleIndication s:Attention deficit hyperactivity disorder (ADHD), unspecified ADHD type Take 1 Capsule (25 mg) by mouth once daily. 30 Capsule 5 11/12/19 25 Active dextroamphetamine -amphetamine (Adderall XR) 25 mg Extended-Release capsuleIndication s:Attention deficit hyperactivity disorder (ADHD), unspecified ADHD type Take 1 Capsule (25 mg) by mouth once daily. 30 Capsule 5 12/12/19 25 Active dextroamphetamine -amphetamine (Adderall XR) 25 mg Extended-Release capsuleIndication s:Attention deficit hyperactivity disorder (ADHD), unspecified ADHD type Take 1 Capsule (25 mg) by mouth once daily. 30 Capsule 5 Active omeprazole 40 mg Delayed-Release capsuleIndication s:Abdominal pain, unspecified abdominal location Take 1 Capsule (40 mg) by mouth once daily. 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 08/2021 HSIL. 09/2021 [place], JOEL 2-3 11/2021 LEEP, JOEL 1 12/2022 [...] No problems associated with this episode. Joanne Wheeler, BRIELLEC.....01/26/2017 12:17 PM Preeclampsia, severe 022 Encounters Date Type Department Care Team Description 10/16/2024 Nurse Triage [facility] [address] [place] [address] Mame Barroso MD Pelvis Pain/problem 10/11/2024 7:55 AM CDT Office Visit [facility] [address] [place] [address] Mame Barroso MD ER Follow up ([facility] 09/10/24 and [facility] 09/11/24) 10/11/2024 Travel 09/11/2024 9:37 PM CDT - 09/11/2024 10:25 PM CDT Emergency [facility] [address] [place] [address] Dandy Robert MD Abdominal pain, unspecified abdominal location (Primary Dx) Discharge Disposition: Home Self Care 09/11/2024 Travel 09/10/2024 Orders Only [facility] Scanner 1 scan: (1-Ord) [facility], CT ABDOMEN PELVIS W CON, 09/10/2024 08/10/2024 3:00 PM CDT Office Visit [facility] [address] [place] [address] Shantel Stanley MD Post-op (DOS:07/05/2024/Proced ure: Exam Under Anesthesia, Lysis of Adhesions, Robotic Assited total Laparoscopic Hysterectomy/Bilatera l Salpingectomies/Cysto scopy) 08/10/2024 Travel 07/20/2024 3:20 PM CDT Office Visit [facility] [address] [place] [address] Shantel Stanley MD Post-op (DOS:07/05/2024/Proced ure: Exam Under Anesthesia, Lysis of Adhesions, Robotic Assited total Laparoscopic Hysterectomy/Bilatera l Salpingectomies/Cysto scopy) 07/19/2024 Travel from Last 3 Months Immunizations Immunization Administration Dates Next Due COVID-19 vaccine (Moderna 10 0mcg/0.5mL) MADELIN LONGORIA 04/16/2020,03/19/2020 Influenza, IIV3 (Age >=3 years) 05/14/2015 [...] is your housing situation today? 1 05/19/2024 Interpersonal Safety Answer Date Record ed Are you being hit, kicked, p ushed or yelled at (see row info)? No 09/11/2024 Interpersonal Safety Abuse 12 - 18 Not on file 09/11/2024 Interpersonal Safety Ambulatory Vulnerability No t on file 09/11/2024 Utilities Answer Date Recorded Do you have trouble paying f or utilities (for example, heat, electricity, water, phone)? 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 Not on file No [...] Sign Reading Time Taken Comments Blood Pressure 111/74 10/11/2024 8:05 AM CDT Pulse 74 10/11/2024 8:05 AM CDT Temperature 35.9 C (96.7 F) 09/11/2024 7:17 PM CDT Respiratory Rate 16 09/11/2024 7:17 PM CDT Oxygen Saturation 100% 10/11/2024 8:05 AM CDT Inhaled Oxygen Concentration - - Weight 42.7 kg (94 lb 3.2 oz) 10/11/2024 8:05 AM CDT Height 154.9 cm (5' 1) 09/11/2024 7:17 PM CDT Body Mass Index 17.8 09/11/2024 7:17 PM CDT Plan of Treatment Health Maintenance Due Date Last Done Comments Hepatitis B series for 19+ (1 of 3 - 19+ 3-dose series) 2012 COVID-19 vaccine series (2023- season) 2023 04/16/2020, 03/19/2020 Depression screening for age 12+ 06/22/2024 06/23/2023, 05/26/2023, 12/24/2022, Additional history exists Influenza Vaccine (#1) 2024 3, 12/21/2018, 02/17/2017, Additional history exists Pap test for age 21-65 12/01/2024 4, 12/24/2022, 12/24/2022, Additional history exists BMI (ht and wt on same day) for age 18+ 06/22/2025 06/22/2024, 04/28/2023, 12/24/2022, Additional history exists Tetanus booster 02/24/2029 02/24/2019, 07/2017, 08/26/2005 HIV for age 15-65 Completed 10/14/2018 Hepatitis C screening for age 18-79 Completed 12/24/2022 Pneumococcal series for age 6-49 Aged Out No longer eligible based on patient's age to complete this topic Procedures Procedure Name Priority Date/Time Associated Diagnosis Comments TRICHOMONAS, NAGA, AND BACTERIAL VAGINOSIS BY FELTON Routine 10/11/2024 8:23 AM CDT Vaginal discharge LIPASE STAT 09/11/2024 8:00 PM CDT HEPATIC FUNCTION PANEL STAT 09/11/2024 8:00 PM CDT BASIC METABOLIC PANEL STAT 09/11/2024 8:00 PM CDT CBC W PLT NO DIFF STAT 09/11/2024 8:0 0 PM CDT SCAN-CT INTERPRETATION 09/10/2024 12:00 AM CDT WARP STARTER THIN PREP PAP AND HPV DNA - [...] Recently Relevant to Health Maintenance Results * (ABNORMAL) TRICHOMONAS, NAGA, AND BACTERIAL VAGINOSIS BY FELTON (10/11/2024 8:23 AM CDT) NAGA SPECIES Negative Negative 5 5:33 PM CDT [facility] NAGA GLABRATA Negative Negative 10/11/2024 5:33 PM CDT [facility] TRICHOMONAS VVA Negative Negative 5 5:33 PM CDT [facility] BACTERIAL VAGINOSIS Positive(A) Negative 10/11/2024 5:33 PM CDT [facility] Other VAGINAL SWAB / Unknown Non-Blood / Unknown 10/11/2024 8:23 AM CDT 10/11/2024 8:46 AM CDT us Mame Barroso MD MICROBIOLOGY Final Resul t [facility] [address] [place] [address], * CBC W PLT NO DIFF (09/11/2024 8:00 PM CDT) WHITE BLOOD COUNT 7.7 4.5 - 11.0 thou/cu mm 09/11/2024 8:16 PM CDT [facility] RED BLOOD COUNT 4.28 4.00 - 5.20 mil/cu mm 09/11/2024 8:16 PM CDT [facility] HEMOGLOBIN 14.2 12.0 - 16.0 g/dL 09/11/2024 8:16 PM CDT [facility] HEMATOCRIT 40.7 33.0 - 51.0 % 09/11/2024 8:16 PM CDT [facility] MCV 95 80 - 100 fL 09/11/2024 8:16 PM CDT [facility] MCH 33.2 26.0 - 34.0 pg 09/11/2024 8:16 PM CDT [facility] MCHC 34.9 32.0 - 36.0 g/dL 09/11/2024 8:16 PM CDT [facility] RDW 12.2 11.5 - 15.5 % 09/11/2024 8:16 PM CDT [facility] PLATELET COUNT 197 140 - 440 thou/cu mm 09/11/2024 8:16 PM CDT [facility] MPV 10.6 6.5 - 11.0 fL 09/11/2024 8:16 PM CDT [facility] NRBC 0.0 % 09/11/2024 8:16 PM CDT [facility] ABS NRBC 0.0 thou /cu mm 09/11/2024 8:16 PM CDT [facility] Blood BLOOD SPECIMEN / Unknown Butterfly / Unknown 09/11/2024 8:00 PM CDT 09/11/2024 8:14 PM CDT [facility] - 09/11/2024 8:16 PM CDT RN to order if patient presents with abdominal pain. Dandy Robert MD HEMATOLOGY Final Result [facility] SENDOUT [place]NAL ZIP [phone] [place] [address] * LIPASE (09/11/2024 8:00 PM CDT) LIPASE 21.5 13.0 - 60.0 IU/L 09/11/2024 8:36 PM CDT [facility] Blood BLOOD SPECIMEN / Unknown Butterfly / Unknown 09/11/2024 8:00 PM CDT 09/11/2024 8:14 PM CDT Dandy Robert MD CHEMISTRY Final Result Performing Organization Address [facility] Co de Phone Number [facility] SENDOUT INTERNAL ZIP [phone] [place] [phone] * HEPATIC FUNCTION PANEL (09/11/2024 8:00 PM CDT) ALBUMIN 4.0 4.0 - 4.9 g/dL 09/11/2024 8:36 PM CDT [facility] PROTEIN,TOTAL 7.0 6.0 - 8.0 g/dL 09/11/2024 8:36 PM CDT [facility] BILIRUBIN,TOTAL 0.4 0.0 - 1.2 mg/dL 09/11/2024 8:36 PM CDT [facility] BILIRUBIN,DIRECT 0.2 0.0 - 0.2 mg/dL 09/11/2024 8:36 PM CDT [facility] BILIRUBIN,INDIRE CT 0.2 0.2 - 0.8 mg/dL 09/11/2024 8:36 PM CDT [facility] ALK PHOSPHATASE 64 35 - 104 IU/L 09/11/2024 8:36 PM CDT [facility] ALT (SGPT) 11 10 - 35 IU/L 09/11/2024 8:36 PM CDT [facility] AST (SGOT) 14 10 - 35 IU/L 09/11/2024 8:36 PM CDT [facility] Blood BLOOD SPECIMEN / Unknown Butterfly / Unknown 09/11/2024 8:00 PM CDT 09/11/2024 8:14 PM CDT Dandy Robert MD CHEMISTRY Final Result Performing Organization Address City/[facility]/ZIP Co de Phone Number [facility] SENDOUT INTERNAL ZIP [phone] [place] [address] * BASIC METABOLIC PANEL (09/11/2024 8:00 PM CDT) SODIUM 138 136 - 145 mmol/L 09/11/2024 8:36 PM [facility] POTASSIUM 4.0 3.5 - 5.1 mmol/L 09/11/2024 8:36 PM [facility] CHLORIDE 102 98 - 107 mmol/L 09/11/2024 8:36 PM [facility] CO2,TOTAL 28 22 - 29 mmol/L 09/11/2024 8:36 PM [facility] ANION GAP 8 5 - 18 09/11/2024 8:36 PM [facility] GLUCOSE 85 70 - 99 mg/dL 09/11/2024 8:36 PM [facility] CALCIUM 9.3 8.8 - 10.4 mg/dL 09/11/2024 8:36 PM [facility] Comment: Reference ranges for this test were updated on 01/18/2024 to reflect our healthy population more accurately. Reference range changes are not retroactively applied to results, but previous results using the same methodology can be interpreted in the context of the new reference range. BUN 11 6 - 20 mg/dL 09/11/2024 8:36 PM [facility] CREATININE 0.86 0.50 - 0.90 mg/dL 09/11/2024 8:36 PM [facility] BUN/CREAT RATIO 13 10 - 20 8:36 PM [facility] eGFR >90 >90 mL/min/1.7 3m2 09/11/2024 8:36 PM [facility] Comment:As of 2021, eG FR is calculated by the CKD-EPI creatinine equation without race adjustment. eGFR can be influenced by muscle mass, exercise, and diet. The reported eGFR is an estimation only and is only applicable if the renal function is stable. Blood BLOOD SPECIMEN / Unknown Butterfly / Unknown 09/11/2024 8:00 PM CDT 09/11/2024 8:14 PM T us Dandy Robert MD CHEMISTRY Final Result [facility] SENDOUT INTERNAL ZIP [phone] [place] [address] * SCAN-CT INTERPRETATION (09/10/2024 12:00 AM CDT) Anatomical Region Laterality Modality Other us Scanner OTHER Final Result * WARP STARTER THIN PREP PAP AND HPV DNA - AGE 25 AND OVER ([employer]) (12/02/2023 2:50 PM CDT) CLINICAL INFORMATION [facility] [employer] [facility] Comment:Normal exam LMP [facility] [employer] [facility] Comment:10/23/23 PREV. PAP [facility] [employer] [facility] Comment:12/24/22 NIL PREV. BX [employer] [facility] Comment:N/A SOURCE WARP STARTER [facility] [employer] [facility] Comment:Cervix STATEMENT OF ADEQUACY [facility] [employer] [facility] Comment: Satisfactory for evaluation. Endocervical/transformation zone component present. INTERPRETATION/RESU LT [facility] [employer] [facility] Comment: Cytology Results: Negative for intraepithelial lesion or malignancy. COMMENT [facility] [employer] [facility] Comment: This Pap test has been evaluated with computer assisted technology. 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 Other HPV types which cause anogenital lesions may be present. The significance of the other types of HPV in malignant processes has not been established. Methodology: Real Time PCR Other (Other) 12/02/2023 2:5 0 PM CDT 12/03/2023 7:48 AM CDT Mame Barroso MD PATHOLOGY/CYTOLOGY Final Re sult [facility] [address] [place] [address], [facility] [address] [place] [address] * ANTI HCV (12/24/2022 10:13 AM CDT) HEPATITIS C ANTIBODY Non-Reacti ve Non-React miller 12/24/2022 5:43 PM CDT [facility] [place] [facility] Comment:Please note, per www [...] Barroso MD SEND OUTS Final Resul t Performing Organization Address City/[facility]/ZIP Co de Phone Number [facility] [address] [place] [address], * ANTI HIV 1/2 (10/14/2018 4:30 PM CDT) HIV-1/HIV-2 ANTIBODY Non-Reacti ve Non-Reacti ve 10/15/2018 4:42 PM CDT [facility] [place] [facility] Comment:HIV-1 p24 and HIV-1/ HIV-2 Ab not detected. Blood BLOOD SPECIMEN / Unknown Venipuncture / Unknown 10/14/2018 4:30 PM CDT 10/14/2018 4:34 PM CDT us Mame Barroso MD SEND OUTS Final Resul t [facility] [address] [place] [address], [place] from Last 3 Months or Most [...] Code Status Discussion: Reviewed Preferences Care Teams Media Producer Relationship Specialty Start Date End Date Mame Barroso MD [address] [facility] [address] PCP - General Family Practice 01/12/18
[2024-10-16 10:32] VITALS: BP 115/74; PULSE 70; RESP 16; TEMP 35.8; O2SAT 100; BMI 38.3
--- NOTE | 2024-10-16 11:20 | CRLHL7_ITS ---
For Patients: As a result of the Century Cures Act, medical imaging exams and procedure reports are released immediately into your electronic medical record. You may view this report before your referring provider. If you have questions, please contact your health care provider. INDICATION: Pelvic pain. Hysterectomy June 2024. TECHNIQUE: Ultrasound pelvis transabdominal and transvaginal for better assessment or to better visualize the endometrium. Real-time sonographic images with spectral and color Doppler imaging of the ovaries were obtained. COMPARISON: CT abdomen and pelvis 09/10/2024. FINDINGS: Uterus is surgically absent. Septated cystic lesion near the expected region of the vaginal cuff measures 3 x 1.7 x 2.6 cm. Left ovary is 2.8 x 1.4 x 1.7 cm and is within normal limits. Normal-appearing color and spectral Doppler flow in the left ovary. Left adnexal region unremarkable. Right ovary is 4.1 x 2.8 x 2.5 cm. Simple cyst measures 2.3 cm. Normal color and spectral Doppler flow in the right ovary. Right adnexal region is unremarkable. Small pelvic free fluid. IMPRESSION: 1. Suspected vaginal cuff cyst measures 3 x 1.7 x 2.6 cm and may be a source of pelvic pain. 2. Simple right ovarian cyst measures 2.3 cm. 3. Small pelvic free fluid. Dictated by Vincent Al MD @ 10/16/2024 12:56:35 PM Dictated by: Vincent Al MD @ 10/16/2024 12:58:14 (Electronically Signed)
--- NOTE | 2024-10-16 11:29 | ED.ABDPAIN ---
HPI - Abdominal Pain General Date Seen: 10/16/24 Chief Complaint: Abdominal Pain Stated Complaint: Abdominal pain Time Seen by Provider: 10/16/24 10:55 Source: patient Mode of arrival: ambulatory Limitations: no limitations History of Present Illness HPI narrative: Patient is a 29-year-old female presenting for abdominal pain. She states the pain started yesterday morning around 02:00. Describes as a stabbing pain that has been persisted since then. Laying down does seem to make it better but moving makes the pain worse. Medication has not helped with her pain. Has had associated nausea and currently feels mildly nauseated. Vomited last night. Pain seems to be mostly in the suprapubic region radiating up to her epigastric region. Denies any diarrhea constipation. Has had some mild vaginal discharge she states that is normal for her since her hysterectomy for endometriosis in June. She states this pain does not feel like her previous endometriosis. Was seen here in the emergency department months ago when she had the symptoms. CT was done showing no abnormalities. Lab work showed no concerning findings. She was discharged home in started to feel better after couple days. Has had little to no pain since then until yesterday morning she states. Denies fevers, chills, chest pain, shortness of breath, headache, vision changes, weakness, numbness. No other concerns noted Related Data Home Medications ?Medication ?Instructions ?Recorded ?Confirmed albuterol 90 mcg/actuation aerosol 90 mcg inhalation DAILY 05/24/22 10/16/24 inhaler albuterol sulfate 2.5 mg/3 mL 2.5 mg inhalation Q6H PRN 05/24/22 10/16/24 (0.083 %) solution for nebulization citalopram 10 mg tablet 10 mg PO QDAY 05/24/22 10/16/24 dextroamphetamine-amphetamine 5 mg 5 mg PO QDAY PRN 05/24/22 04/19/24 tablet (Adderall) dextroamphetamine-amphetamine ER 25 mg PO QAM 05/24/22 10/16/24 25 mg 24hr capsule,extend release (Adderall XR) cyclobenzaprine 5 mg tablet 5 mg PO QPM PRN 09/10/24 10/16/24 metronidazole 500 mg tablet 500 mg PO BID 10/16/24 10/16/24 Previous Rx's ?Medication ?Instructions ?Recorded nitrofurantoin macrocrystal 100 mg 100 mg PO BID #10 caps 10/16/24 capsule ondansetron 4 mg disintegrating 4 mg PO Q6H #20 tabs 10/16/24 tablet Allergies Allergy/AdvReac Type Severity Reaction Status Date / Time No Known Allergies Allergy Verified 04/19/24 20:18 Review of Systems Status of ROS Reports: 10 or more systems reviewed and unremarkable except as noted in History and below PFSH PFS Medical History ADHD (attention deficit hyperactivity disorder) ?F90.9 - Attention-deficit hyperactivity disorder, unspecified type (ICD-10) Surgical History Status post repeat low transverse section ?Z98.891 - History of uterine scar from previous surgery (ICD-10) Status post primary low transverse section ?Z98.891 - History of uterine scar from previous surgery (ICD-10) Social History Smoking Status: Never smoker Do you use any of these nicotine containing products: None Second hand tobacco smoke exposure: No How often do you have a drink containing alcohol: 2-4 times a month How often do you have six or more drinks on one occasion: Never AUDIT-C Alcohol total score: 2 Non-prescribed substance use: denies use service: No Exam Narrative: Exam Narrative: Const: Well-nourished, Well-developed, in mild distress Eyes: PERRL, no conjunctival injection, and symmetrical lids HENT: Atraumatic external nose and ears. Moist mucous membranes. Neck: Symmetric, trachea midline, No thyromegaly. CVS: RRR, No murmurs or gallops. Peripheral pulses 2+ and equal in all extremities RESP: Unlabored respiratory effort. Clear to auscultation bilaterally. GI: Mild suprapubic tenderness, Nondistended, No rebound or guarding. : Right pelvic tenderness. No left pelvic tenderness MSK:Extremities w/o deformity, Normal Active ROM Skin: Warm, Dry. No rashes or lesions. Neuro: Normal Muscle tone, No focal neurological deficits. Psych: Awake, Alert, & Oriented x3. Appropriate mood and affect. Const: Vital Signs, click to edit/add: Vital Signs - 24 hr 10/16/24 10:32 Temperature 96.5 F L Pulse Rate [Pulse Oximeter] 70 Respiratory Rate 16 Blood Pressure [Ri ght Upper Arm] 115/74 Pulse Oximetry 100 Oxygen Delivery Me thod Room Air Course Vital Signs Vital signs: Initial Vital Signs Temperature 96.5 F L 10/16/24 10:32 Temperature Source Temporal Artery Scan 10/16/24 10:32 Pulse Rate 70 10/16/24 10:32 Respiratory Rate 16 10/16/24 10:32 Blood Pressure 115/74 10/16/24 10:32 Blood Pressure Mean 87 10/16/24 10:32 Blood Pressure Position Sitting 10/16/24 10:32 Pulse Oximetry 100 10/16/24 10:32 Oxygen Delivery Method Room Air 10/16/24 10:32 Vital Signs Temperature 96.5 F L 10/16/24 10:32 Pulse Rate 70 10/16/24 10:32 Respiratory Rate 16 10/16/24 10:32 Blood Pressure 115/74 10/16/24 10:32 Pulse Oximetry 100 10/16/24 10:32 Oxygen Delivery Method Room Air 10/16/24 10:32 Temperature 96.5 F L 10/16/24 10:32 Pulse Rate 70 10/16/24 10:32 Respiratory Rate 16 10/16/24 10:32 Blood Pressure 115/74 10/16/24 10:32 Pulse Oximetry 100 10/16/24 10:32 Oxygen Delivery Method Room Air 10/16/24 10:32 MDM - Abdominal Pain MDM Narrative Medical decision making narrative: Patient is a 29-year-old female presenting for right pelvic pain along with lower abdominal and suprapubic pain. Differential includes ovarian torsion, ovarian cyst, UTI. Seems less likely to be appendicitis as this is her same pain she had a month ago and CT scan at that time was normal. Also seems unlikely to be diverticulitis. No signs of hernias. Since she just had a CT scan a month ago with his exact same pain I do not feel like a need to put her through more radiation and instead will do a ultrasound of her pelvis. Also order CBC, CMP, lipase, urinalysis. She does not want anything for pain or nausea at this time. Lab work returned showing no acute concerning abnormalities other than she does appear to have a UTI. Denies any urinary frequency or dysuria. Ultrasound returned showing suspected vaginal cuff cyst measuring 3 x 1.7 x 2.6 cm. She also has a simple right ovarian cyst measuring 2.3 cm. This is unlikely to be an intermittent torsion as pain was persistent. I did speak to OB here and [place] about the suspected cuff cyst it was recommended that the patient follow-up outpatient with her OB. Will start the patient on antibiotics for her UTI. Also ordered Zofran for any future nausea Lab Data Labs: Lab Results 10/16/24 10/16/24 Range/Units 11:27 12:35 WBC 7.50 (4.50-11.00) K/uL RBC 4.52 (4.00-5.20) m/uL Hgb 14.9 (12.0-16.0) gm/dL Hct 43.6 (33.0-51.0) % MCV 97 (80-100) fL MCH 33 (26-34) pg MCHC 34 (32-36) gm/dL RDW Coeff of Radha 11.8 (11.5-15.5) % Plt Count 196 (140-440) K/uL Neut % (Auto) 71.9 (42.0-72.0) % Lymph % (Auto) 16.5 L (20-44) % [place] % (Auto) 10.8 (0.0-11.0) % Eos % (Auto) 0.5 (0.0-7.0) % Baso % (Auto) 0.3 (0.0-3.0) % Neut # (Auto) 5.39 (1.7-7.0) K/uL Lymph # (Auto) 1.20 (0.90-2.90) K/uL [place] # (Auto) 0.80 (0.00-0.90) K/UL Eos # (Auto) 0.04 (0.00-0.50) K/uL Baso # (Auto) 0.02 (0.00-0.30) K/uL Abs Immat Gran (auto) 0.00 (0.00-0.30) K/uL Imm/Tot Granulo (auto) 0.0 % Sodium 136 (135-149) mmol/L Potassium 4.1 (3.6-5.1) mmol/L Chloride 102 (96-114) mmol/L Carbon Dioxide 28 (20-32) mmol/L Anion Gap 6 L (7-15) mEq/L BUN 16 (5-24) mg/dL Creatinine 0.9 (0.5-1.5) mg/dL Estimated Creat Clear 68.34 Estimated GFR 88 ml/min Glucose 108 (60-115) mg/dL Calcium 9.2 (8.4-10.6) mg/dL Total Bilirubin 1.4 (0.1-1.5) mg/dL AST 27 (12-35) U/L ALT 17 (4-35) U/L Alkaline Phosphatase 76 (40-150) U/L Total Protein 7.1 (6.0-8.3) g/dL Albumin 4.2 (3.3-5.0) g/dL Lipase 93 (23-300) U/L Urine Color Yellow (Yellow) Urine Appearance Slightly Cloudy A (Clear) Urine pH 6.0 (5.0-8.5) Ur Specific [place] 1.025 (1.000-1.030) Urine Protein 2+ A (Negative) Urine Glucose (UA) Negative (Negative) Urine Ketones 1+ A (Negative) Urine Blood Negative (Negative) Urine Nitrite Positive A (Negative) Urine Bilirubin 1+ A (Negative) Urine Urobilinogen 2.0 A (0.2-1.0) Ur Leukocyte Esterase Negative (Negative) Urine RBC 0-2 (0-2) Urine WBC 2-5 (0-5) Ur Squamous Epith Cells Moderate A (None-Few) Calcium Oxalate Crystal Moderate A (None) Urine Bacteria Moderate A (None) Urine Mucus Moderate A (None) Imaging Data Pelvic ultrasound: Attestation: I have reviewed the pertinent imaging results. Radiologist's impression: 1. Suspected vaginal cuff cyst measures 3 x 1.7 x 2.6 cm and may be a source of pelvic pain. 2. Simple right ovarian cyst measures 2.3 cm. 3. Small pelvic free fluid. Dictated by Vincent Al MD @ 10/16/2024 12:56:35 PM Discharge Plan Discharge Clinical Impression: Cyst, Cystitis Patient Disposition: Home, Self-Care Condition: Stable Additional Instructions: Lab work does show signs of a UTI. Macrobid ordered for this. Zofran ordered for nausea. Your ultrasound shows what appears to be a vaginal cuff cyst. It is recommended you follow-up outpatient with the [facility] provider that did the surgery. Return to emergency department for new or worsening symptoms. Prescriptions: New nitrofurantoin macrocrystal 100 mg capsule 100 mg PO BID Qty: 10 0RF Rx Instructions: must administer with a meal/food ondansetron 4 mg tablet,disintegrating 4 mg PO Q6H Qty: 20 0RF No Action dextroamphetamine-amphetamine [Adderall XR] 25 mg capsule,extended release 24hr 25 mg PO QAM dextroamphetamine-amphetamine [Adderall] 5 mg tablet 5 mg PO QDAY PRN citalopram 10 mg tablet 10 mg PO QDAY albuterol sulfate 2.5 mg /3 mL (0.083 %) solution for nebulization 2.5 mg inhalation Q6H PRN albuterol 90 mcg/actuation aerosol 90 mcg inhalation DAILY cyclobenzaprine 5 mg tablet 5 mg PO QPM PRN metronidazole 500 mg tablet 500 mg PO BID Follow Up/Referrals: Mame Barroso MD [Primary Care Provider, Family Practice] Stand Alone Forms: MyHealth Info Instructions
[2024-10-16 11:34] LABS: Hematocrit 43.6 % (33.0-51.0); Hemoglobin* 14.9 gm/dL (12.0-16.0); Immature Granulocytes Abs Auto 0.00 K/uL (0.00-0.30); Immature Granulocytes Pct Auto 0.0 %; Mean Corpuscular HGB Conc 34 gm/dL (32-36); Mean Corpuscular Hemoglobin 33 pg (26-34); Mean Corpuscular Volume 97 fL (80-100); RDW Coefficient of Variation % 11.8 % (11.5-15.5); Red Blood Count 4.52 m/uL (4.00-5.20); White Blood Count* 7.50 K/uL (4.50-11.00)
[2024-10-16 11:38] LABS: Lymphocytes Absolute Auto 1.20 K/uL (0.90-2.90); Slide Review Reflex No
[2024-10-16 11:47] LABS: Albumin* 4.2 g/dL (3.3-5.0); Chloride* 102 mmol/L (96-114); Potassium* 4.1 mmol/L (3.6-5.1); Sodium* 136 mmol/L (135-149)
[2024-10-16 11:50] LABS: Alanine Aminotransferase* 17 U/L (4-35); Alkaline Phosphatase* 76 U/L (40-150); Anion Gap 6 mEq/L (7-15); Aspartate Amino Transferase* 27 U/L (12-35); Bilirubin Total* 1.4 mg/dL (0.1-1.5); Blood Urea Nitrogen* 16 mg/dL (5-24); Carbon Dioxide* 28 mmol/L (20-32); Creatinine* 0.9 mg/dL (0.5-1.5); Est. Creatinine Clearance* 68.34; Estimated Glomerular Filt Rate 88 ml/min; Total Protein* 7.1 g/dL (6.0-8.3)
[2024-10-16 11:51] LABS: Calcium* 9.2 mg/dL (8.4-10.6); Glucose* 108 mg/dL (60-115)
[2024-10-16 12:44] LABS: Appearance Urine Slightly Cloudy (Clear)
== END 2024-10-16 13:33 | disposition home or self-care (01) ==
PROVIDERS: Emergency Provider Student in an Organized Health Care Education/Training Program; PCP Family Medicine
DX: N30.90 Cystitis, unspecified without hematuria (principal); N83.201 Unspecified ovarian cyst, right side
CPT/HCPCS: 36415; 76830; 76856; 80053; 81001; 83690; 85025; 87086; 93976; 99284

== ENCOUNTER 2024-12-29 12:50 | Emergency (ER) | payer OTHER, SELFPAY ==
--- OUTSIDE RECORDS SUMMARY | 2024-12-01 02:46 | XMS_ITS | Continuity of Care Document ---
Author Organization [facility] Address [address] [address] [place] [address] Phone Care Team Providers Care Museum Educator Name Role Phone Jhony Kat MD Unavailable Unavailable Allergies, Adverse Reactions, Alerts Substance Reaction Status Criticality No Known Allergies Active No Inform ation Medications Medication Instructions Dosage Effective Dates (start - stop) Status Comments cyclobenzaprine 5 mg tablet take 1 tablet by oral route as needed at bedtime as needed - Active fluticasone 250 mcg-salmeterol 50 mcg/dose blistr powdr for inhalation inhale 1-2 puff by INHALATION route as needed - Active dextroamphetamine-ampheta mine ER 25 mg 24hr capsule,extend release take [...] hours as needed 2 puff - Active Procedures Procedure Date Offic/outpt E&m Estab Moderate Complex e/m visit add on Routine Serum Collection Established Level 3 Ugi Endo; W/bx 1/mx Level Iv-surg Path Gross/micro 25 Offic/outpt E&m Estab Mod-hi 2 25 Routine Serum Collection Offic/outpt E&m Estab Low-mod 4 Colonoscopy Flex; W/bx 1/mx Level Iv-surg Path Gross/micro 24 Office Cons New/estab Mod Routine Serum Collection Advance Directives Directive Yes / No Effective Date File Name No Information Encounters Encounter Description Practice Location Reason(s) For Visit Diagnoses Date Provider Providers Copied on Encounter [facility], [address] [address], [place], [id number], [place] tel:[phone] [facility] No Information Nov- 5 [place]. [address] [place] [address], [address], [id number], [place]. tel:[phone] Offic/outpt E&m Estab Moderate [facility], [address] [address], [place], [id number], [place] tel:[phone] [facility] GI Symptoms or Concerns (chief complaint) Right upper quadrant painNausea and vomiting, unspecified vomiting type Sep- 5 [place]. [address] [place] [address], [address], [id number], [place]. tel:[phone] Referring Provider: Referral Self, USE FOR SELF REFERRALS. [facility], [address] [address], [place], [id number], [place] tel:[phone] [facility] Weight loss Sep-0 5 [place]. [address] [place] [address], [address], [id number], [place]. tel:[phone] Established Level 3 [facility], [address] [address], [place], [id number], [place] tel:[phone] [facility] GI Symptoms or Concerns (chief complaint) Right upper quadrant pain Apr- 5 [place]. [address] [place] [address], [address], [id number], [place]. tel:[phone] Referring Provider: Referral Self, USE FOR SELF REFERRALS. [facility], [address] [address], [place], [id number], [place] tel:[phone] [facility] GI Symptoms or Concerns (chief complaint) Right upper quadrant painGastroesopha geal reflux disease with esophagitis without hemorrhageHiatal herniaGastro-eso phageal reflux disease with esophagitis, without bleedingRight upper quadrant painDiaphragmati c hernia without obstruction or gangrene 5 Jasmin Saldaña. [address] [facility] [address], [facility] [address], [place], [id number], [place]. tel:[phone] Referring Provider: Referral Self, USE FOR SELF REFERRALS. Offic/outpt E&m Estab Mod-hi 2 [facility], [address] [address], [place], [id number], [place] tel:[phone] [facility] GI Symptoms or Concerns (chief complaint) RUQ abdominal painIrregular bowel habits 5 Joel Toro. [address] [facility] [address], [facility] [address], [place], [id number], [place]. tel:[phone] Referring Provider: Referral Self, USE FOR SELF REFERRALS. Offic/outpt E&m Estab Low-mod [facility], [address] [address], [place], [id number], [place] tel:[phone] [facility] GI Symptoms or Concerns (chief complaint) Irregular bowel habitsIntermitte nt constipationRUQ abdominal painConstipation , unspecified constipation type 4 [place]. [address] [facility] [address], [facility] [address], [place], [id number], [place]. tel:[phone] Referring Provider: Referral Self, USE FOR SELF REFERRALS. [facility], [address] [address], [place], [id number], [place] tel:[phone] [facility] Diarrhea, unspecifiedHemor rhage of anus and rectumHemorrhoid s, internalOther hemorrhoidsDiarr hea, unspecifiedHemor rhage of anus and rectum Dec- 4 [place]. [address] [facility] [address], [address], [id number], . tel:[phone] Referring Provider: Referral Self, USE FOR SELF REFERRALS. Office Cons New/estab Mod [facility], [address] [address], [place], [id number], [place] tel:[phone] [facility] GI Symptoms or Concerns (chief complaint) Diarrhea, unspecified typeRectal bleedingRight upper quadrant pain Sep-3 4 Jasmin Saldaña. [address] [facility] [address], [facility] [address], [place], [place], [id number], [place]. tel:[phone] Referring Provider: Mame Barroso MD, [address] [place] [address], [address]. tel:[phone] [facility], [address] [address], [place], [id number], [place] tel:[phone] No Information Nov-2 4 No Information Referring Provider: Mame Barroso MD, [address] [place] [address], [address]. tel:[phone] Family History Family Member Type Diagnosis Age At Onset Mother Problem (finding) Cirrhosis Brother Problem (finding) Colon polyps Brother Problem (finding) Celiac disease Mother Problem (finding) Alcoholism Brother Problem (finding) Family history of Ulcer ative colitis Mother Problem (finding) Thyroid disorder Brother Problem (finding) Irritable bowel syndrom e Brother Problem (finding) Diverticular disease Immunizations Vaccine Date Status Comments Influenza, Marcelinoin Mena Canin e Kidney, subunit, quadrivalent, injectable, preservative free administered Note: [facility] ; Source: Other Registry SARS-COV-2 (COVID-19) vaccin e, mRNA, spike protein, LNP, preservative free, 100 mcg/0.5mL dose or 50 mcg/0.25mL dose administered Note: [facility] bi -[facility]al interface ; Source: Other Registry [...] Registry Payers Payer name Insurance type Covered libertarian ID Authoriza tion(s) [employer] CI [id number] Social History Type Description Quantity Date Captured [...] date/timeframe: 01/03/2024 ordered Appointment Cierra Collazo BOOKED History Of Present Illness Encounter Date Complaint History Of Prese nt Illness GI Symptoms or Concerns This is a 29-year-old female with a past medical history of ADHD, anxiety, mild intermittent asthma, preeclampsia, recent abdominal hysterectomy in the setting of pelvic congestion syndrome who presents for evaluation of right upper quadrant pain and change in bowel habits.Please see previous note for full details. Patient has send she had celiac serology, thyroid, negative test, CT abdomen pelvis, colonoscopy, upper endoscopy that has been negative to date.Several weeks ago patient presented to [facility] initially in [place]. Patient had cross-sectional ridging with CT per the patient that was unremarkable. Patient then had CBC CMP and lipase [employer] that was unremarkable. She noticed some nausea vomiting loose bowel movements and some abdominal pain that has since spontaneously subsided.Patient notes that she has 2-3 bowel movements a day. Type IV on the [place] stool chart. Patient has any nausea and vomiting and able to consume intake from what she would like. Patient's weight has remained stable during every clinical evaluation that she has had here at [facility]. She does describe that she did have a rash a few weeks ago. That has since subsided. Still having some right upper quadrant pain but is not particularly bothersome to the patient and able to complete her activities of daily life without issues.Of note I was specifically contacted by this patient's primary care via telephone Dr. Mame Barroso for concern of malabsorption. GI Symptoms or Concerns 28-year- old female with a past medical history of ADHD, anxiety, mild intermittent asthma, preeclampsia who presents for virtual follow-up appointment with irregular bowel habits as well as right upper quadrant pain.Please see previous notes for full details. Patient has essentially had celiac serology, thyroid, negative test, CT abdomen pelvis, colonoscopy, upper endoscopy that has been negative.With increasing water intake, hot beverage and other lifestyle measures bowel motions have improved having 2-3 bowel movements a day. Patient now has nagging constant right upper quadrant pain. Otherwise no other GI symptoms.Patient is planning to undergo hysterectomy for urogyn symptoms as well as pelvic congestion syndrome next week GI Symptoms or Concerns GI Symptoms or Concerns Cierra cummings is [...] has alternating bowel habits from type I [place] stool chart that occurs 70% of the [...] symptoms. CT scan from December 01 through [facility] in the [facility] system does not show active inflammatory disease. There is moderate stool burden through the colon. There are vascular findings to raise question of pelvic congestion syndrome. There are stable subcentimeter hepatic cysts and a crow tail liver morphology. Urinalysis that day showed [...] Instructions Date Instruction Additional Infor kim -- To see you again Cierra-- As we discussed we will get blood test today for alpha gal to ensure you are not having a reaction to meat secondary to tick bite-- Otherwise as we discussed we will hold off for the time being for further workup or treatment options-- Please consider putting a lidocaine patch in the right upper quadrant area to help with pain-- We will follow-up in 3 months to see how things are going and we can consider further testing for lactose intolerance, fructose intolerance, small intestinal bacterial overgrowth and further evaluation of your small intestine Related to Right upper quadrant pain -- At this time like ly cause of right upper quadrant pain is nonstructural-- Likely related to the nerves of the GI system -- As you will be undergoing hysterectomy recently and this could help with symptoms we will hold off on adding any medications at this time-- If you continue to have ongoing symptoms weeks to months after hysterectomy please let us know and we can consider starting nortriptyline as we discussed-- Otherwise at this time we will follow-up as needed Related to Right upper quadrant pain -- As we discussed w e will [...]
[2024-12-29 12:51] VITALS: BP 132/81; PULSE 68; RESP 16; TEMP 36.2; O2SAT 100; BMI 17.8
--- OUTSIDE RECORDS SUMMARY | 2024-12-29 12:53 | XMS_ITS | Clinical Summary ---
Author Organization [employer] [facility] Address [facility] [place] [address] Care Team Providers Care Ripsaw Matcher Name Role Phone Mame Barroso MD Primary [...] Active dextroamphetamine- amphetamine 25 mg Extended-Release capsule 5 Active aluminum-magnesium hydroxide-simethic one 200-200-20 mg/5 mL suspensionIndicati ons:Abdominal pain, unspecified abdominal location Take 15-30 mL by mouth 4 times daily if needed for GI Upset or Heartburn. Shake Well. 355 mL 5 Active dextroamphetamine- amphetamine (AdderalL) 10 mg tabletIndications: Attention deficit hyperactivity disorder (ADHD), unspecified ADHD type Take 1 Tablet (10 mg) by mouth once daily. Daily in afternoon for work as needed 30 Tablet 5 Active dextroamphetamine- amphetamine (Adderall XR) 25 mg Extended-Release capsuleIndications :Attention deficit hyperactivity disorder (ADHD), unspecified ADHD type Take 1 Capsule (25 mg) by mouth once daily. 30 Capsule 5 Active nitrofurantoin macrocrystaL 100 mg capsule Take 1 Capsule by mouth two times daily. 5 Active ondansetron (ZOFRAN ODT) 4 mg disintegrating tablet DISSOLVE 1 TABLET ON THE TONGUE EVERY 6 HOURS 5 Active dextroamphetamine- amphetamine (AdderalL) 10 mg tabletIndications: Attention deficit hyperactivity disorder (ADHD), unspecified ADHD type Take 1 Tablet (10 mg) by mouth once daily. Daily in afternoon for work as needed 30 Tablet 5 025 dextroamphetamine- amphetamine (Adderall XR) 25 mg Extended-Release capsuleIndications :Attention deficit hyperactivity disorder (ADHD), unspecified ADHD type Take 1 Capsule (25 mg) by mouth once daily. 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 08/2021 HSIL. 09/2021 [place], JOEL 2-3 11/2021 LEEP, JOEL 1 12/2022 [...] problems associated with this episode. Joanne Wheeler RNC.....09/28/2018 8:47 AM Severe pre-eclampsia 05/23/2018 022 care, [...] Encounters Date Type Department Care Team Description 12/29/2024 Nurse Triage [facility] [address] [place] [address] Mame Barroso MD Palpitations; Chest Pain 11/10/2024 10:00 AM CDT Office Visit [facility] [address] [place] [address] Mame Barroso MD Palpitations; Concerns (1 episode of vomiting, nausea, diarrhea); Joint Pain (Mostly back and legs); Lump (Left elbow) 11/10/2024 Travel 10/20/2024 10:20 AM CDT Ancillary Procedure [facility] [address] [facility] [address] [address] 10/20/2024 9:00 AM CDT Office Visit [facility] [address] [facility] [place] [address] [address] Shantel Stanley MD [employer] Exam (ER f/u from 10/16/2024/Abdominal pain/Right pelvic pain/Vaginal cuff cyst); Nurse/Clinic Staff Only (Pt states that her pain has gone down. ) 10/18/2024 Travel 10/16/2024 Orders Only [facility] Scanner 1 scan: (1-Ord) [facility] [place], 10/16/2024 10/16/2024 Nurse Triage [facility] [address] [place] [address] Mame Barroso MD Pelvis Pain/problem 10/11/2024 7:55 AM CDT Office Visit [facility] [address] [place] [address] Mame Barroso MD ER Follow up ([place] 09/10/24 and [place] 09/11/24) 10/11/2024 Travel from Last 3 Months Immunizations Immunization [...] Sex Assigned at Female 03/30/2020 1:27 PM CONTRACT ATTORNEY Legal Sex Female 10:10 AM CDT Gender Identity Female 03/30/2020 1:27 PM CONTRACT ATTORNEY Sexual Orientation Straight 03/30/2020 1: 27 PM CONTRACT ATTORNEY 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 Not on file [...] Sign Reading Time Taken Comments Blood Pressure 120/77 11/10/2024 10:17 AM CDT Pulse 68 11/10/2024 10:17 AM CDT Temperature 35.9 C (96.7 F) 09/11/2024 7:17 PM CDT Respiratory Rate 16 09/11/2024 7:17 PM CDT Oxygen Saturation 100% 11/10/2024 10:17 AM CDT Inhaled Oxygen Concentration - - Weight 42.5 kg (93 lb 9.6 oz) 11/10/2024 10:41 A M CDT Height 154.9 cm (5' 1) 09/11/2024 7:17 PM CDT Body Mass Index 17.69 09/11/2024 7:17 PM CDT Plan of Treatment Upcoming Encounters Date Type Department Care Team (Late st Contact Info) Description 01/11/2025 1:30 PM CDT Office Visit [facility] [address] [address] [place] [address] [place] [address] Health Maintenance Due Date Last Done Comments Hepatitis B series for 19+ (1 of 3 - 19+ 3-dose series) 2012 HPV series for age 9-45 (1 - 3-dose SCDM series) 2020 Depression screening for age 12+ 06/22/2024 06/23/2023, 05/26/2023, 12/24/2022, Additional history exists COVID-19 vaccine series ( season) 2024 04/16/2020, 03/19/2020 Influenza Vaccine (#1) 2024 3, 12/21/2018, 02/17/2017, Additional history exists Pap test for age 21-65 12/01/2024 4, 12/24/2022, 12/24/2022, Additional history exists BMI (ht and wt on same day) for age 18+ 06/22/2025 06/22/2024, 04/28/2023, 12/24/2022, Additional history exists Tetanus booster 02/24/2029 02/24/2019, 07/2017, 08/26/2005 RSV vaccine for adults or (1 - 1-dose 75+ series) 2068 HIV for age 15-65 Completed 10/14/2018 Hepatitis C screening for age 18-79 Completed 12/24/2022 Pneumococcal series for age 6-49 Aged Out No longer eligible based on patient's age to complete this topic Procedures Procedure Name Priority Date/Time Associated Diagnosis Comments CBC WITH AUTO DIFFERENTIAL Routine 11/10/2024 11:11 AM CDT Weight loss C-REACTIVE PROTEIN Routine 11/10/2024 11 :11 AM CDT Weight loss SEDIMENTATION RATE Routine 11/10/2024 11 :11 AM CDT Weight loss TSH WITH REFLEX Routine 11/10/2024 11:11 AM CDT Weight loss CBC WITH AUTO DIFFERENTIAL Routine 11/10/2024 11:11 AM CDT Weight loss COMP METABOLIC PANEL Routine 11/10/2024 11:11 AM CDT Weight loss HEMOGLOBIN A1C Routine 11/10/2024 11:11 AM CDT Weight loss US PELVIS COMPLETE TV Routine 10/20/2024 10:15 AM CDT Cyst of tunica vaginalis SCAN-ULTRASOUND REPORT 10/16/2024 12:00 AM CDT TRICHOMONAS, NAGA, AND BACTERIAL VAGINOSIS BY FELTON Routine 10/11/2024 8:23 AM CDT Vaginal discharge DESIGN LEAD THIN PREP PAP AND HPV DNA - [...] Recently Relevant to Health Maintenance Results * SEDIMENTATION RATE (11/10/2024 11:11 AM CDT) SED RATE BY MODIFIED WESTERGREN 2 < OR = 20 mm/h 11/11/2024 7:37 AM CDT [facility] Comment: No collection date and/or time was provided. If collection time exceeds 24 hours until testing, evaluate result with caution. It is recommended that sample be recollected, with date and time appropriately documented. Blood BLOOD SPECIMEN / Unknown [facility] / Unknown 11/10/2024 11:11 AM CDT 11/10/2024 11:12 AM CDT us Mame Barroso MD HEMATOLOGY Final Resul t [facility] [address] [place] [address], * (ABNORMAL) CBC WITH AUTO DIFFERENTIAL (11/10/2024 11:11 AM CDT) [facility] WHITE BLOOD CELL COUNT 5.6 3.8 - 10.8 Thousand/ uL 11/11/2024 2:52 AM CDT [facility] RED BLOOD CELL COUNT 4.70 3.80 - 5.10 Million/u L 11/11/2024 2:52 AM CDT [facility] HEMOGLOBIN 15.4 11.7 - 15.5 g/dL 11/11/2024 2:52 AM CDT [facility] HEMATOCRIT 46.0(H) 35.0 - 45.0 % 11/11/2024 2:52 AM CDT [facility] MCV 97.9 80.0 - 100.0 fL 11/11/2024 2:52 AM CDT [facility] MCH 32.8 27.0 - 33.0 pg 11/11/2024 2:52 AM CDT [facility] MCHC 33.5 32.0 - 36.0 g/dL 11/11/2024 2:52 AM CDT [facility] Comment: For adults, a slight decrease in the calculated MCHC value (in the range of 30 to 32 g/dL) is most likely not clinically significant; however, it should be interpreted with caution in correlation with other red cell parameters and the patient's clinical condition. RDW 12.0 11.0 - 15.0 % 11/11/2024 2:52 AM CDT [facility] PLATELET COUNT 199 140 - 400 Thousand/ uL 11/11/2024 2:52 AM CDT [facility] MPV 11.4 7.5 - 12.5 fL 11/11/2024 2:52 AM CDT [facility] NEUTROPHILS 63.1 % 11/11/2024 2:52 AM CDT [facility] LYMPHOCYTES 28.4 % 11/11/2024 2:52 AM CDT [facility] MONOCYTES 7.9 % 11/11/2024 2:52 AM CDT [facility] EOSINOPHILS 0.4 % 11/11/2024 2:52 AM CDT [facility] BASOPHILS 0.2 % 11/11/2024 2:52 AM CDT [facility] ABSOLUTE NEUTROPHILS 3534 1500 - 7800 cells/uL 11/11/2024 2:52 AM CDT [facility] ABSOLUTE LYMPHOCYTES 1590 850 - 3900 cells/uL 11/11/2024 2:52 AM CDT [facility] ABSOLUTE MONOCYTES 442 200 - 950 cells/uL 11/11/2024 2:52 AM CDT [facility] ABSOLUTE EOSINOPHILS 22 15 - 500 cells/uL 11/11/2024 2:52 AM CDT [facility] ABSOLUTE BASOPHILS 11 0 - 200 cells/uL 11/11/2024 2:52 AM CDT [facility] Blood BLOOD SPECIMEN / Unknown [facility] / Unknown 11/10/2024 11:11 AM CDT 11/10/2024 11:12 AM CDT Mame Barroso MD HEMATOLOGY Final Resul t Performing Organization Address [facility] Co de Phone Number [facility] [address] [address], * HEMOGLOBIN A1C (11/10/2024 11:11 AM CDT) HEMOGLOBIN A1C 5.0 <5.7 % 11/11/2024 6:04 AM CDT [facility] Comment: For the purpose of screening for the presence of diabetes: <5.7% Consistent with the absence of diabetes 5.7-6.4% Consistent with increased risk for diabetes (prediabetes) > or =6.5% Consistent with diabetes This assay result is consistent with a decreased risk of diabetes. Currently, no consensus exists regarding use of hemoglobin A1c for diagnosis of diabetes in children. According to [place] Diabetes [employer] (ADA) guidelines, hemoglobin A1c <7.0% represents optimal control in non- diabetic patients. Different metrics may apply to specific patient populations. Standards of Medical Care in Diabetes(ADA). Blood BLOOD SPECIMEN / Unknown [facility] / Unknown 11/10/2024 11:11 AM CDT 11/10/2024 11:12 AM CDT Mame Barroso MD CHEMISTRY Final Resul t Performing Organization Address City/[facility]/ZIP Co de Phone Number [facility] [address] [address], * TSH WITH REFLEX (11/10/2024 11:11 AM CDT) [facility] TSH W/REFLEX TO FT4 0.86 mIU/L 11/11/2024 4:36 AM CDT [facility] Comment: Reference Range > or = 20 Years 0.40-4.50 Ranges First trimester 0.26-2.66 Second trimester 0.55-2.73 Third trimester 0.43-2.91 Blood BLOOD SPECIMEN / Unknown [facility] / Unknown 11/10/2024 11:11 AM CDT 11/10/2024 11:12 AM CDT Mame Barroso MD CHEMISTRY Final Resul t Performing Organization Address City/[facility]/ZIP Co de Phone Number [facility] [address] [address], * C-REACTIVE PROTEIN (11/10/2024 11:11 AM CDT) [facility] C-REACTIVE PROTEIN (MG/L) <3.0 <8.0 mg/L 11/11/2024 2:54 PM CDT [facility] Blood BLOOD SPECIMEN / Unknown [facility] / Unknown 11/10/2024 11:11 AM CDT 11/10/2024 11:12 AM CDT Mame Barroso MD CHEMISTRY Final Resul t [facility] [address] [address], * COMP METABOLIC PANEL (11/10/2024 11:11 AM CDT) [facility] SODIUM 139 135 - 146 mmol/L 11/11/2024 3:58 AM CDT [facility] POTASSIUM 4.2 3.5 - 5.3 mmol/L 11/11/2024 3:58 AM CDT [facility] CHLORIDE 103 98 - 110 mmol/L 11/11/2024 3:58 AM CDT [facility] CARBON DIOXIDE 27 20 - 32 mmol/L 11/11/2024 3:58 AM CDT [facility] GLUCOSE 87 65 - 99 mg/dL 11/11/2024 3:58 AM CDT [facility] Comment: Fasting reference interval CALCIUM 9.6 8.6 - 10.2 mg/dL 11/11/2024 3:58 AM CDT [facility] CREATININE 0.87 0.50 - 0.97 mg/dL 11/11/2024 3:58 AM CDT [facility] BUN/CREATININE RATIO SEE NOTE: 6 - 22 (calc) 11/11/2024 3:58 AM CDT [facility] Comment: Not Reported: BUN and Creatinine are within reference range. EGFR 91 > OR = 60 mL/min/1. 73m2 11/11/2024 3:58 AM CDT [facility] ALBUMIN 4.4 3.6 - 5.1 g/dL 11/11/2024 3:58 AM CDT [facility] PROTEIN, TOTAL 6.9 6.1 - 8.1 g/dL 11/11/2024 3:58 AM CDT [facility] BILIRUBIN, TOTAL 0.5 0.2 - 1.2 mg/dL 11/11/2024 3:58 AM CDT [facility] ALKALINE PHOSPHATASE 64 31 - 125 U/L 11/11/2024 3:58 AM CDT [facility] ALT 11 6 - 29 U/L 11/11/2024 3:58 AM CDT [facility] AST 17 10 - 30 U/L 11/11/2024 3:58 AM CDT [facility] UREA NITROGEN (BUN) 13 7 - 25 mg/dL 11/11/2024 3:58 AM CDT [facility] GLOBULIN 2.5 1.9 - 3.7 g/dL (calc) 11/11/2024 3:58 AM CDT [facility] ALBUMIN/GLOBULI N RATIO 1.8 1.0 - 2.5 (calc) 11/11/2024 3:58 AM CDT [facility] Blood BLOOD SPECIMEN / Unknown [facility] / Unknown 11/10/2024 11:11 AM CDT 11/10/2024 11:12 AM CDT us Mame Barroso MD CHEMISTRY Final Resul t [facility] [address] [place] [address], [place] [phone] * (ABNORMAL) US PELVIS COMPLETE TV (10/20/2024 10:15 AM CDT) Anatomical Region Laterality Modality Pelvis, OVARIES, UTERUS Ultrasou nd Impressions 10/21/2024 10:59 AM CDT 1. Uterus is surgically absent. 2. Right ovary is normal in appearance. 3. Left ovary contains a hemorrhagic corpus luteal cyst that measures 2.0 x 1.1 x 1.9 cm. O-RADS 2, almost certainly benign. No dedicated imaging follow up is necessary. Alexx Ponce MD 10/21/2024 10:54 AM coComment [facility] [address] [address] [facility] [address] Narrative 10/21/2024 10:59 AM CDT Table formatting from the original result was not included. For Patients: Results are automatically released to your [employer] ([employer]) account once available, in compliance with federal regulations. This means that you may see your results before your provider has had a chance to review them. Please allow 2-3 business days for your provider to comment on the results. Gynecologic Ultrasound Date of exam: 10/20/2024 Indication for exam: 1. Cyst of tunica vaginalis Requesting Provider: Shantel Stanley MD TECHNIQUE: Transabdominal scan was not performed. Transvaginal scan was performed for improved visualization of the pelvic structures. FINDINGS: The uterus is surgically absent. The right ovary measures 2.9 X 2.1 X 2.0 cm and is normal in appearance. The left ovary measures 3.1 X 1.7 X 2.6 cm and is normal in appearance. It contains a complex cyst that measures 2.0 X 1.1 X 1.9 cm. Free fluid in the cul de sac: None. us Shantel Stanley MD US Final Result * SCAN-ULTRASOUND REPORT (10/16/2024 12:00 AM CDT) Anatomical Region Laterality Modality Other us Scanner OTHER Final Result * (ABNORMAL) TRICHOMONAS, NAGA, AND BACTERIAL VAGINOSIS BY FELTON (10/11/2024 8:23 AM CDT) NAGA SPECIES Negative Negative 5:33 PM CDT [facility] NAGA GLABRATA Negative Negative 10/11/2024 5:33 PM CDT [facility] TRICHOMONAS VVA Negative Negative 5:33 PM CDT [facility] BACTERIAL VAGINOSIS Positive(A) Negative 10/11/2024 5:33 PM CDT [facility] Other VAGINAL SWAB / Unknown Non-Blood / Unknown 10/11/2024 8:23 AM CDT 10/11/2024 8:46 AM CDT us Mame Barroso MD MICROBIOLOGY Final Resul t [facility] [address] [place] [id number], * DESIGN LEAD THIN PREP PAP AND HPV DNA - AGE 25 AND OVER ([facility]) (12/02/2023 2:50 PM CDT) CLINICAL INFORMATION [facility] Comment:Normal exam LMP [facility] Comment:10/23/23 PREV. PAP [facility] Comment:12/24/22 NIL PREV. BX [facility] Comment:N/A SOURCE DESIGN LEAD [facility] Comment:Cervix STATEMENT OF ADEQUACY [facility] Comment: Satisfactory for evaluation. Endocervical/transformation zone component present. INTERPRETATION/RESU LT [facility] Comment: Cytology Results: Negative for intraepithelial lesion or malignancy. COMMENT [facility] Comment: This Pap test has been evaluated with computer assisted technology. NON DESTRUCTIVE EVALUATION TECHNICIAN [facility] Comment: AUC, CT(ASCP) CT Screening location: [address] [address] THINPREP TIS PAP ALWAYS MESSAGE [facility] Comment: EXPLANATORY NOTE: The Pap is a [...] HPV HIGH RISK Not Detected NOT DETECTED [facility] Comment: Not Detected High Risk HPV types (16,18,31,33,35,39,45,51,52, 56,58,59,66,68) were not detected. Other HPV types which cause anogenital lesions may be present. The significance of the other types of HPV in malignant processes has not been established. Methodology: Real Time PCR Other (Other) 12/02/2023 2:5 0 PM CDT 12/03/2023 7:48 AM CDT Mame Barroso MD PATHOLOGY/CYTOLOGY Final Re sult [address] [address], [address] [address] * ANTI HCV (12/24/2022 10:13 AM CDT) HEPATITIS C ANTIBODY Non-Reacti ve Non-React miller 12/24/2022 5:43 PM CDT [facility] Comment:Please note, per www .CDC.gov: [...] Barroso MD SEND OUTS Final Resul t [facility] [address] [place] [address], * ANTI HIV 1/2 (10/14/2018 4:30 PM CDT) HIV-1/HIV-2 ANTIBODY Non-Reacti ve Non-Reacti ve 10/15/2018 4:42 PM CDT [facility] Comment:HIV-1 p24 and HIV-1/ HIV-2 Ab not detected. Blood BLOOD SPECIMEN / Unknown Venipuncture / Unknown 10/14/2018 4:30 PM CDT 10/14/2018 4:34 PM CDT us Mame Barroso MD SEND OUTS Final Resul t [facility] [address] [place] [address], from Last 3 Months or Most Recently [...] Code Status Discussion: Reviewed Preferences Care Teams Ripsaw Matcher Relationship Specialty Start Date End Date Mame Barroso MD [address] [place] [address] PCP - General Family Practice 01/12/18
--- NOTE | 2024-12-29 13:07 | ED.CHESTPAIN ---
HPI - Chest Pain General Chief Complaint: Chest Pain Stated Complaint: Shortness of breath, high BP Time Seen by Provider: 12/29/24 13:03 History of Present Illness HPI narrative: This 29-year-old female comes in reporting some chest discomfort that occurred this morning while sitting and doing nothing strenuous. She states that it was more like a pressure that seemed to start on the right side of her anterior chest and seemed to move across to the left. She did not have any nausea, vomiting, lightheadedness, shortness of breath, or diaphoresis. She states that she could reproduce the symptoms a bit when taking a deep breath. She states that she currently is not having any such symptoms. She does not report any exercise intolerance. She does not have any cardiac risk factors. Related Data Home Medications ?Medication ?Instructions ?Recorded ?Confirmed albuterol 90 mcg/actuation aerosol 90 mcg inhalation DAILY 05/24/22 12/29/24 inhaler albuterol sulfate 2.5 mg/3 mL 2.5 mg inhalation Q6H PRN 05/24/22 12/29/24 (0.083 %) solution for nebulization citalopram 10 mg tablet 10 mg PO QDAY 05/24/22 10/16/24 dextroamphetamine-amphetamine 5 mg 5 mg PO QDAY PRN 05/24/22 04/19/24 tablet (Adderall) dextroamphetamine-amphetamine ER 25 mg PO QAM 05/24/22 10/16/24 25 mg 24hr capsule,extend release (Adderall XR) cyclobenzaprine 5 mg tablet 5 mg PO QPM PRN 09/10/24 10/16/24 metronidazole 500 mg tablet 500 mg PO BID 10/16/24 10/16/24 amlodipine 2.5 mg tablet 2.5 mg PO DAILY 12/29/24 12/29/24 citalopram 20 mg tablet 20 mg PO DAILY 12/29/24 12/29/24 dextroamphetamine-amphetamine 10 1 tab PO DAILY PRN 12/29/24 12/29/24 mg tablet Previous Rx's ?Medication ?Instructions ?Recorded nitrofurantoin macrocrystal 100 mg 100 mg PO BID #10 caps 10/16/24 capsule ondansetron 4 mg disintegrating 4 mg PO Q6H #20 tabs 10/16/24 tablet Allergies Allergy/AdvReac Type Severity Reaction Status Date / Time No Known Allergies Allergy Verified 04/19/24 20:18 Review of Systems Status of ROS Reports: 10 or more systems reviewed and unremarkable except as noted in History and below Narrative Constitutional: No fevers, no weight gain or loss. Eyes: No discharge. No vision changes. HENT: No congestion, no sore throat, no ear pain. Cardiovascular: No palpitations. Chest discomfort as described above. Respiratory: No shortness of breath, no wheezes, no cough. Gastrointestinal: No abdominal pain, no vomiting, no diarrhea. Genitourinary: No dysuria, no hematuria. Musculoskeletal: Normal range of motion. Skin: No rashes, no pruritis. Neurological: No dizziness, weakness, sensory change, speech change. Endo/Heme/Allergies: No bruising or bleeding. No polydipsia. Pysch: no suicidality, no anxiety, no insomnia. All other systems reviewed and are negative. [facility] Medical History ADHD (attention deficit hyperactivity disorder) ?F90.9 - Attention-deficit hyperactivity disorder, unspecified type (ICD-10) Surgical History Status post repeat low transverse section ?Z98.891 - History of uterine scar from previous surgery (ICD-10) Status post primary low transverse section ?Z98.891 - History of uterine scar from previous surgery (ICD-10) Social History Do you use any of these nicotine containing products: None and Vaping Products Second hand tobacco smoke exposure: No How often do you have a drink containing alcohol: 2-4 times a month How often do you have six or more drinks on one occasion: Never AUDIT-C Alcohol total score: 2 Non-prescribed substance use: denies use service: No Exam Narrative Exam Narrative: Constitutional: Well-developed, well-nourished, no acute distress. HEENT: Normocephalic, atraumatic. Neck: Normal range of motion. Nontender. Supple. Heart: Regular. No murmurs. Normal rate. Intact distal pulses. Lungs: Clear to auscultation. No wheezes, rhonchi, or rales. Abdomen: Normal bowel sounds. Nontender. No rebound tenderness. Genitalia: Deferred. Back: No midline tenderness. Normal range of motion. Extremities: Normal range of motion. No injury. Skin: Intact. No rash. Warm. No erythema or pallor. Neurologic: No altered sensation. No weakness. Alert and oriented. Psychiatric: No suicidality. No anxiety or depression. No insomnia. Nursing notes and vitals signs are reviewed. Const Vital Signs, click to edit/add: Vital Signs - 24 hr 12/29/24 12:51 12/29/24 14:02 Temperature 97.2 F L Pulse Rate [Pulse Oximeter] 68 52 L Respiratory Rate 16 16 Blood Pressure [Right Upper Arm] 132/81 114/78 Pulse Oximetry 100 99 Oxygen Delivery Method Room Air Room Air Course Vital Signs Vital signs: Initial Vital Signs Temperature 97.2 F L 12/29/24 12:51 Temperature Source Temporal Artery Scan 12/29/24 12:51 Pulse Rate 68 12/29/24 12:51 Respiratory Rate 16 12/29/24 12:51 Blood Pressure 132/81 12/29/24 12:51 Blood Pressure Mean 98 12/29/24 12:51 Blood Pressure Position Sitting 12/29/24 12:51 Pulse Oximetry 100 12/29/24 12:51 Oxygen Delivery Method Room Air 12/29/24 12:51 Vital Signs Temperature 97.2 F L 12/29/24 12:51 Pulse Rate 68 12/29/24 12:51 Respiratory Rate 16 12/29/24 12:51 Blood Pressure 132/81 12/29/24 12:51 Pulse Oximetry 100 12/29/24 12:51 Oxygen Delivery Method Room Air 12/29/24 12:51 Temperature 97.2 F L 12/29/24 12:51 Pulse Rate 52 L 12/29/24 14:02 Respiratory Rate 16 12/29/24 14:02 Blood Pressure 114/78 12/29/24 14:02 Pulse Oximetry 99 12/29/24 14:02 Oxygen Delivery Method Room Air 12/29/24 14:02 MDM - Chest Pain MDM Narrative Medical decision making narrative: This patient comes in reporting some chest discomfort as described above. Her EKG and labs all returned with reassuring results. Her sodium is just slightly low at 132. These results are reassuring to the patient. Her symptoms are not suspicious of some cardiac or pulmonary cause. She is okay to be discharged home and is sufficiently reassured with these results. Lab Data Labs: Lab Results 12/29/24 Range/Units 13:34 WBC 5.56 (4.50-11.00) K/uL RBC 4.53 (4.00-5.20) m/uL Hgb 14.6 (12.0-16.0) gm/dL Hct 42.4 (33.0-51.0) % MCV 94 (80-100) fL MCH 32 (26-34) pg MCHC 34 (32-36) gm/dL RDW Coeff of Radha 11.4 L (11.5-15.5) % Plt Count 229 (140-440) K/uL Neut % (Auto) 61.2 (42.0-72.0) % Lymph % (Auto) 29.3 (20-44) % Emmet % (Auto) 8.1 (0.0-11.0) % Eos % (Auto) 0.7 (0.0-7.0) % Baso % (Auto) 0.7 (0.0-3.0) % Neut # (Auto) 3.40 (1.7-7.0) K/uL Lymph # (Auto) 1.63 (0.90-2.90) K/uL Emmet # (Auto) 0.50 (0.00-0.90) K/UL Eos # (Auto) 0.04 (0.00-0.50) K/uL Baso # (Auto) 0.04 (0.00-0.30) K/uL Abs Immat Gran (auto) 0.00 (0.00-0.30) K/uL Imm/Tot Granulo (auto) 0.0 % Sodium 132 L (135-149) mmol/L Potassium 3.7 (3.6-5.1) mmol/L Chloride 98 (96-114) mmol/L Carbon Dioxide 24 (20-32) mmol/L Anion Gap 10 (7-15) mEq/L BUN 20 (5-24) mg/dL Creatinine 0.8 (0.5-1.5) mg/dL Estimated Creat Clear 68.58 Estimated GFR 101 ml/min Glucose 100 (60-115) mg/dL Calcium 9.5 (8.4-10.6) mg/dL POC Troponin I 0.00 L (0.01-0.04) ng/ml ECG Data Attestation: I personally reviewed and interpreted this ECG as follows: Interpretation: Normal sinus rhythm. Rate is 60 beats per minute. There are no ST or T-wave abnormalities. Discharge Plan Discharge Clinical Impression: Atypical chest pain Patient Disposition: Home, Self-Care Condition: Stable Additional Instructions: Continue current plans. Use [id number] medicines as needed and directed. Follow up with MD return if worsening. Prescriptions: No Action dextroamphetamine-amphetamine [Adderall XR] 25 mg capsule,extended release 24hr 25 mg PO QAM dextroamphetamine-amphetamine [Adderall] 5 mg tablet 5 mg PO QDAY PRN citalopram 10 mg tablet 10 mg PO QDAY albuterol sulfate 2.5 mg /3 mL (0.083 %) solution for nebulization 2.5 mg inhalation Q6H PRN albuterol 90 mcg/actuation aerosol 90 mcg inhalation DAILY cyclobenzaprine 5 mg tablet 5 mg PO QPM PRN metronidazole 500 mg tablet 500 mg PO BID nitrofurantoin macrocrystal 100 mg capsule 100 mg PO BID Qty: 10 0RF Rx Instructions: must administer with a meal/food ondansetron 4 mg tablet,disintegrating 4 mg PO Q6H Qty: 20 0RF dextroamphetamine-amphetamine 10 mg tablet 1 tab PO DAILY PRN amlodipine 2.5 mg tablet 2.5 mg PO DAILY citalopram 20 mg tablet 20 mg PO DAILY Follow Up/Referrals: Mame Barroso MD [Primary Care Provider, Family Practice] Stand Alone Forms: [id number] Info Instructions
[2024-12-29 13:41] LABS: Hematocrit* 42.4 % (33.0-51.0); Hemoglobin* 14.6 gm/dL (12.0-16.0); Immature Granulocytes Abs Auto 0.00 K/uL (0.00-0.30); Immature Granulocytes Pct Auto 0.0 %; Lymphocytes Absolute Auto 1.63 K/uL (0.90-2.90); Mean Corpuscular HGB Conc 34 gm/dL (32-36); Mean Corpuscular Hemoglobin 32 pg (26-34); Mean Corpuscular Volume 94 fL (80-100); RDW Coefficient of Variation % 11.4 % (11.5-15.5); Red Blood Count* 4.53 m/uL (4.00-5.20); White Blood Count* 5.56 K/uL (4.50-11.00)
[2024-12-29 13:50] LABS: Troponin, Point-of-Care* 0.00 ng/ml (0.01-0.04)
[2024-12-29 13:54] LABS: Chloride* 98 mmol/L (96-114); Potassium* 3.7 mmol/L (3.6-5.1); Sodium* 132 mmol/L (135-149)
[2024-12-29 13:57] LABS: Anion Gap 10 mEq/L (7-15); Blood Urea Nitrogen* 20 mg/dL (5-24); Carbon Dioxide* 24 mmol/L (20-32); Creatinine* 0.8 mg/dL (0.5-1.5); Est. Creatinine Clearance* 68.58; Estimated Glomerular Filt Rate 101 ml/min
[2024-12-29 13:58] LABS: Calcium* 9.5 mg/dL (8.4-10.6); Glucose* 100 mg/dL (60-115)
[2024-12-29 14:02] VITALS: BP 114/78; PULSE 52; RESP 16; O2SAT 99
[2024-12-29 14:13] LABS: Slide Review Reflex No
== END 2024-12-29 14:32 | disposition home or self-care (01) ==
PROVIDERS: Emergency Provider Emergency Medicine Emergency Medical Services; PCP Family Medicine
DX: R07.89 Other chest pain (principal); E87.1 Hypo-osmolality and hyponatremia
CPT/HCPCS: 36415; 80048; 84484; 85025; 93005; 99284